=== PATIENT | male | born 1955 | race Two or more races ===

== ENCOUNTER 2018-05-26 01:24 | Emergency (ER) | payer MEDICAID ==
[~2018-05-26] VITALS: Ht 177.8 cm; Wt 93.0 kg
[~2018-05-26 01:24] MED LIST: BUME2TAB3 PO; CARV12.544 PO; CLON0.2T PO; GABA300C10 PO; HYDR1TAB97 PO; HYDR50TA15 PO; OME20T PO; ONDA-133 PO; ONDA4TAB5; PRED-559 PO
[2018-05-26 01:38] VITALS: BP 124/88
== END 2018-05-26 04:18 | disposition home or self-care (01) ==
LOC: ER 01:28
DX: M25.552 Pain in left hip (principal); E11.9 Type 2 diabetes mellitus without complications; E78.5 Hyperlipidemia, unspecified; I10 Essential (primary) hypertension; F17.210 Nicotine dependence, cigarettes, uncomplicated
CPT/HCPCS: 73502

== ENCOUNTER 2018-05-30 11:55 | Inpatient (IN) | payer MEDICAID ==
[~2018-05-30] VITALS: Ht 177.8 cm; Wt 101.5 kg
[2018-05-30 12:46] LABS: Basophils # (auto) 0 uL; Basophils % (auto) 0.3 % (0.0-2.0); Eosinophils # (auto) 0 uL; Eosinophils % (auto) 0.4 % (0.0-7.0); Hematocrit 41.7 % (41.0-53.0); Hemoglobin 13.8 g/dL (13.5-17.5); Lymphocytes # (auto) 0.8 uL; Lymphocytes % (auto) 8.3 % (10.0-50.0); Mean Corpuscular Hemoglobin 30.1 pg (28.0-32.0); Mean Corpuscular Hgb Conc. 33.2 g/dL (32.0-36.0); Mean Corpuscular Volume 90.7 fL (80.0-100.0); Monocytes # (auto) 0.2 uL; Monocytes % (auto) 2.2 % (0.0-12.0); Neutrophils # (auto) 8.2 uL; Neutrophils % (auto) 88.8 % (37.0-80.0); Platelet Count (auto) 183 10^3/uL (140-450); Red Blood Cells 4.59 10^6/uL (4.5-5.90); Red Cell Distribution Width 14.4 % (11.8-14.3); White Blood Cell 9.3 10^3/uL (4.4-10.8)
[2018-05-30 13:05] LABS: Alanine Aminotransferase 41 U/L (16-61); Albumin 2.7 g/dL (3.4-5.0); Anion Gap 8 (5-15); Aspartate Aminotransferase 32 U/L (15-37); BUN/Creatinine Ratio 18.8; Blood Alcohol < 3.0 mg/dL (0-5); Blood Urea Nitrogen 43 mg/dL (7-18); Calcium 7.2 mg/dL (8.5-10.1); Carbon Dioxide 27 mmol/L (21-32); Chloride 98 mmol/L (98-107); GFR African American 38 mL/min; GFR Non-African American 31 mL/min; Magnesium 2.1 mg/dL (1.6-2.6); Potassium 4.5 mmol/L (3.5-5.1); Sodium 133 mmol/L (136-145); Total Protein 6.6 g/dL (6.4-8.2)
[2018-05-30 13:10] LABS: Glucose 528 mg/dL (74-106)
[2018-05-30 13:13] LABS: Alkaline Phosphatase 139 U/L (45-117); Bilirubin, Total 0.8 mg/dL (0.2-1.0)
[2018-05-30] MEDS ORDERED: InsuLIN REG 1unit/0.01ml Soln (100units/ml) IV ONE (13:15)
[2018-05-30] MEDS ORDERED: SODIUM CHLORIDE 0.9% 1,000 ML IV ONE (13:15)
[2018-05-30] MEDS ORDERED: DEXTROSE (50%) 50ML SYRG IV PRN (15:45)
[2018-05-30] MEDS ORDERED: ACETAMINOPHEN 325 MG TAB PO PRN (16:00)
[2018-05-30] MEDS ORDERED: cloNIDine HCL 0.1 MG TAB PO PRN (16:00)
[2018-05-30] MEDS ORDERED: PANTOPRAZOLE 40 MG TAB PO ONE (16:00)
[2018-05-30] MEDS ORDERED: glipiZIDE 5 MG TAB PO ONE (16:00)
[2018-05-30] MEDS ORDERED: TEMAZEPAM 15 MG CAP PO PRN (16:00)
[2018-05-30] MEDS ORDERED: MORPHINE SULFATE 4 MG/ML SYR/VIAL IV PRN (16:00)
[2018-05-30] MEDS ORDERED: DOCUSATE SOD 100 MG CAP PO PRN (16:00)
[2018-05-30] MEDS ORDERED: ONDANSETRON HCL 4 MG/2 ML VIAL IV PRN (16:00)
[2018-05-30] MEDS: FAMOTIDINE 20 MG TAB PO SCH (16:12)
[2018-05-30] MEDS: ACCU-CHEK COMFORT CURVE STRIP VI SCH ×2 (16:24→21:44)
[2018-05-30] MEDS: InsuLIN REG 1unit/0.01ml Soln (100units/ml) SC SCH ×2 (16:30→21:44)
[2018-05-30] MEDS: Glucerna Carbsteady SHAKE Vanilla 8oz PO SCH (18:23)
[2018-05-30 20:00] VITALS: BP 109/77
[2018-05-30 20:15] VITALS: BP 109/77
[2018-05-30] MEDS: hydrALAZINE HCL 25 MG TAB PO SCH (21:42)
[2018-05-30] MEDS: GABAPENTIN 300 MG CAP PO SCH (21:42)
[2018-05-30] MEDS: SODIUM CHLOR 0.9% PF (SALINE LOCK) 10ML VIAL/SYR IV SCH (21:42)
[2018-05-30] MEDS: CARVEDILOL 12.5 MG TAB PO SCH (21:43)
[2018-05-30] MEDS: HYDROcodone-ACET 5/325MG TAB PO PRN (21:43)
[2018-05-30] MEDS: cloNIDine HCL 0.1 MG TAB PO SCH (21:47)
[2018-05-31] VITALS (9 sets, daily range): BP systolic 94–136; BP diastolic 58–89
[2018-05-31] MEDS: HYDROcodone-ACET 5/325MG TAB PO PRN ×5 (01:55→22:46)
[2018-05-31] MEDS: hydrALAZINE HCL 25 MG TAB PO SCH ×3 (06:18→21:44)
[2018-05-31] MEDS: SODIUM CHLOR 0.9% PF (SALINE LOCK) 10ML VIAL/SYR IV SCH ×3 (06:19→21:50)
[2018-05-31] MEDS: cloNIDine HCL 0.1 MG TAB PO SCH ×3 (06:19→21:45)
[2018-05-31] MEDS: glipiZIDE 5 MG TAB PO SCH (06:20)
[2018-05-31] MEDS: ACCU-CHEK COMFORT CURVE STRIP VI SCH ×4 (06:21→21:51)
[2018-05-31 06:27] LABS: Basophils # (auto) 0.1 uL; Basophils % (auto) 0.9 % (0.0-2.0); Eosinophils # (auto) 0.2 uL; Eosinophils % (auto) 1.8 % (0.0-7.0); Hemoglobin 13.4 g/dL (13.5-17.5); Lymphocytes # (auto) 2.6 uL; Lymphocytes % (auto) 26.1 % (10.0-50.0); Mean Corpuscular Hgb Conc. 33.5 g/dL (32.0-36.0); Mean Corpuscular Volume 89.6 fL (80.0-100.0); Monocytes # (auto) 0.7 uL; Monocytes % (auto) 6.6 % (0.0-12.0); Neutrophils # (auto) 6.5 uL; Neutrophils % (auto) 64.6 % (37.0-80.0); Nucleated Red Blood Cells % 0.1 %; Platelet Count (auto) 179 10^3/uL (140-450); Red Blood Cells 4.46 10^6/uL (4.5-5.90); Red Cell Distribution Width 14.2 % (11.8-14.3); White Blood Cell 10.1 10^3/uL (4.4-10.8)
[2018-05-31] MEDS: InsuLIN REG 1unit/0.01ml Soln (100units/ml) SC SCH ×4 (06:28→21:47)
[2018-05-31 06:51] LABS: Potassium 3.8 mmol/L (3.5-5.1)
[2018-05-31 06:58] LABS: Albumin 2.5 g/dL (3.4-5.0); BUN/Creatinine Ratio 22.7; Bilirubin, Total 0.6 mg/dL (0.2-1.0); Calcium 7.7 mg/dL (8.5-10.1); Total Protein 6.2 g/dL (6.4-8.2)
[2018-05-31] MEDS: Glucerna Carbsteady SHAKE Vanilla 8oz PO SCH ×3 (08:52→18:09)
[2018-05-31] MEDS: BUMETANIDE 1 MG TAB PO SCH (10:00)
[2018-05-31] MEDS: CARVEDILOL 12.5 MG TAB PO SCH ×2 (10:00→21:45)
[2018-05-31] MEDS: GABAPENTIN 300 MG CAP PO SCH ×2 (10:16→21:44)
[2018-05-31] MEDS: FAMOTIDINE 20 MG TAB PO SCH (10:16)
[2018-05-31] MEDS: ASPirin-EC 81 mg tab PO SCH (10:16)
[2018-05-31] MEDS: MULTIPLE VITAMIN TAB PO SCH (10:16)
[2018-05-31] MEDS: predniSONE 20 MG TAB PO SCH (10:19)
[2018-05-31] MEDS: PANTOPRAZOLE 40 MG TAB PO SCH (10:19)
[2018-05-31] MEDS: SODIUM CHLORIDE 0.9% 1,000 ML IV SCH (17:34)
[2018-06-01] VITALS (8 sets, daily range): BP systolic 114–143; BP diastolic 66–98
[2018-06-01] MEDS: cloNIDine HCL 0.1 MG TAB PO SCH ×3 (05:03→22:00)
[2018-06-01] MEDS: hydrALAZINE HCL 25 MG TAB PO SCH ×3 (05:03→22:18)
[2018-06-01] MEDS: SODIUM CHLOR 0.9% PF (SALINE LOCK) 10ML VIAL/SYR IV SCH ×3 (05:04→22:17)
[2018-06-01] MEDS: HYDROcodone-ACET 5/325MG TAB PO PRN ×5 (05:04→22:18)
[2018-06-01] MEDS: InsuLIN REG 1unit/0.01ml Soln (100units/ml) SC SCH ×3 (06:14→17:00)
[2018-06-01] MEDS: glipiZIDE 5 MG TAB PO SCH (06:14)
[2018-06-01] MEDS: ACCU-CHEK COMFORT CURVE STRIP VI SCH ×4 (06:15→22:19)
[2018-06-01 06:43] LABS: Potassium 4.1 mmol/L (3.5-5.1)
[2018-06-01 07:03] LABS: BUN/Creatinine Ratio 23.3; Calcium 7.6 mg/dL (8.5-10.1)
[2018-06-01] MEDS: Glucerna Carbsteady SHAKE Vanilla 8oz PO SCH ×3 (08:14→17:12)
[2018-06-01] MEDS: SODIUM CHLORIDE 0.9% 1,000 ML IV SCH (08:14)
[2018-06-01] MEDS: predniSONE 20 MG TAB PO SCH (09:18)
[2018-06-01] MEDS: ASPirin-EC 81 mg tab PO SCH (09:19)
[2018-06-01] MEDS: FAMOTIDINE 20 MG TAB PO SCH (09:19)
[2018-06-01] MEDS: MULTIPLE VITAMIN TAB PO SCH (09:19)
[2018-06-01] MEDS: PANTOPRAZOLE 40 MG TAB PO SCH (09:20)
[2018-06-01] MEDS: CARVEDILOL 12.5 MG TAB PO SCH ×2 (09:21→22:18)
[2018-06-01] MEDS: BUMETANIDE 1 MG TAB PO SCH (09:21)
[2018-06-01] MEDS ORDERED: INSULIN LANTUS (GLARGINE) 1 /0.01ml (100units/ml) SC ONE (13:00)
[2018-06-01] MEDS ORDERED: DEXTROSE (50%) 50ML SYRG IV PRN (13:00)
[2018-06-01] MEDS: GABAPENTIN 300 MG CAP PO SCH ×2 (13:29→22:17)
[2018-06-01] MEDS ORDERED: InsuLIN REG 1unit/0.01ml Soln (100units/ml) SC ONE (18:15)
[2018-06-01] MEDS ORDERED: InsuLIN REG 1unit/0.01ml Soln (100units/ml) IV ONE (20:00)
[2018-06-01] MEDS ORDERED: InsuLIN REG 1unit/0.01ml Soln (100units/ml) SC SCH (22:00)
[2018-06-02] MEDS: HYDROcodone-ACET 5/325MG TAB PO PRN ×3 (02:45→11:34)
[2018-06-02 05:13] VITALS: BP 118/64
[2018-06-02] MEDS: cloNIDine HCL 0.1 MG TAB PO SCH (06:00)
[2018-06-02] MEDS: GABAPENTIN 300 MG CAP PO SCH (06:18)
[2018-06-02] MEDS: hydrALAZINE HCL 25 MG TAB PO SCH (06:18)
[2018-06-02] MEDS: SODIUM CHLOR 0.9% PF (SALINE LOCK) 10ML VIAL/SYR IV SCH (06:18)
[2018-06-02] MEDS ORDERED: INSULIN LANTUS (GLARGINE) 1 /0.01ml (100units/ml) SC SCH (07:00)
[2018-06-02] MEDS: ACCU-CHEK COMFORT CURVE STRIP VI SCH ×2 (07:02→11:27)
[2018-06-02] MEDS: InsuLIN REG 1unit/0.01ml Soln (100units/ml) SC SCH ×2 (07:03→11:27)
[2018-06-02] MEDS: Glucerna Carbsteady SHAKE Vanilla 8oz PO SCH ×2 (07:48→12:35)
[2018-06-02 09:00] VITALS: BP 138/85
[2018-06-02] MEDS: MULTIPLE VITAMIN TAB PO SCH (10:35)
[2018-06-02] MEDS: CARVEDILOL 12.5 MG TAB PO SCH (10:35)
[2018-06-02] MEDS: PANTOPRAZOLE 40 MG TAB PO SCH (10:36)
[2018-06-02] MEDS: predniSONE 20 MG TAB PO SCH (10:36)
[2018-06-02] MEDS: ASPirin-EC 81 mg tab PO SCH (10:36)
[2018-06-02] MEDS: FAMOTIDINE 20 MG TAB PO SCH (10:36)
[2018-06-02] MEDS: BUMETANIDE 1 MG TAB PO SCH (10:37)
[2018-06-02 12:37] LABS: Anion Gap 9 (5-15); BUN/Creatinine Ratio 24.6; Blood Urea Nitrogen 32 mg/dL (7-18); Calcium 7.8 mg/dL (8.5-10.1); Carbon Dioxide 25 mmol/L (21-32); Chloride 101 mmol/L (98-107); GFR African American 72 mL/min; GFR Non-African American 60 mL/min; Glucose 220 mg/dL (74-106); Potassium 4.1 mmol/L (3.5-5.1); Sodium 135 mmol/L (136-145)
== END 2018-06-02 13:08 | disposition home or self-care (01) | DRG 384 ==
LOC: ER 11:55 → EDBD 11:55 → OVERFLOW 11:56 → WEST WING 19:40
PROVIDERS: ADMIT Internal Medicine; ATTEND Internal Medicine
DX: S70.02XA Contusion of left hip, initial encounter (principal); N17.0 Acute kidney failure with tubular necrosis; E43 Unspecified severe protein-calorie malnutrition; I13.0 Hypertensive heart and chronic kidney disease with heart failure and stage 1 through stage 4 chronic kidney disease, or unspecified chronic kidney disease; I50.32 Chronic diastolic (congestive) heart failure; E11.21 Type 2 diabetes mellitus with diabetic nephropathy; E44.0 Moderate protein-calorie malnutrition; E11.65 Type 2 diabetes mellitus with hyperglycemia; E83.51 Hypocalcemia; J44.9 Chronic obstructive pulmonary disease, unspecified; E11.22 Type 2 diabetes mellitus with diabetic chronic kidney disease; E78.5 Hyperlipidemia, unspecified; N18.3 Chronic kidney disease, stage 3 (moderate); Z82.49 Family history of ischemic heart disease and other diseases of the circulatory system; Z87.891 Personal history of nicotine dependence; Z86.73 Personal history of transient ischemic attack (TIA), and cerebral infarction without residual deficits; Z90.89 Acquired absence of other organs; Z68.32 Body mass index [BMI] 32.0-32.9, adult; V89.2XXA Person injured in unspecified motor-vehicle accident, traffic, initial encounter; Y92.410 Unspecified street and highway as the place of occurrence of the external cause; Y93.89 Activity, other specified; Y99.8 Other external cause status
CPT/HCPCS: 36415; 72192; 80048; 80053; 80061; 80320; 82962; 83036; 83735; 85025; 93306; 96361; 96372; 96374; 96375; J1815; J2405

== ENCOUNTER 2018-06-20 16:03 | Emergency (ER) | payer MEDICAID ==
[~2018-06-20] VITALS: Ht 177.8 cm; Wt 95.3 kg
[2018-06-20 17:03] LABS: Basophils # (auto) 0 uL; Basophils % (auto) 0.2 % (0.0-2.0); Eosinophils # (auto) 0 uL; Eosinophils % (auto) 0.1 % (0.0-7.0); Hematocrit 42.1 % (41.0-53.0); Hemoglobin 13.9 g/dL (13.5-17.5); Lymphocytes # (auto) 0.9 uL; Lymphocytes % (auto) 9.7 % (10.0-50.0); Mean Corpuscular Hemoglobin 29.7 pg (28.0-32.0); Mean Corpuscular Volume 89.9 fL (80.0-100.0); Monocytes # (auto) 0.3 uL; Monocytes % (auto) 3.6 % (0.0-12.0); Neutrophils # (auto) 8.1 uL; Neutrophils % (auto) 86.4 % (37.0-80.0); Platelet Count (auto) 213 10^3/uL (140-450); Red Blood Cells 4.68 10^6/uL (4.5-5.90); Red Cell Distribution Width 14.7 % (11.8-14.3); White Blood Cell 9.3 10^3/uL (4.4-10.8)
[2018-06-20 17:26] LABS: Alanine Aminotransferase 41 U/L (16-61); Albumin 3.1 g/dL (3.4-5.0); Anion Gap 10 (5-15); Aspartate Aminotransferase 32 U/L (15-37); BUN/Creatinine Ratio 14.3; Blood Urea Nitrogen 22 mg/dL (7-18); Calcium 8.2 mg/dL (8.5-10.1); Carbon Dioxide 22 mmol/L (21-32); Chloride 107 mmol/L (98-107); GFR African American 59 mL/min; GFR Non-African American 49 mL/min; Glucose 85 mg/dL (74-106); Potassium 3.7 mmol/L (3.5-5.1); Sodium 139 mmol/L (136-145)
[2018-06-20 17:29] LABS: Alkaline Phosphatase 104 U/L (45-117); Total Protein 7.1 g/dL (6.4-8.2)
[2018-06-20 17:47] VITALS: BP 130/82
== END 2018-06-20 18:50 | disposition home or self-care (01) ==
LOC: EDBD 16:03 → ER 16:03
DX: E11.649 Type 2 diabetes mellitus with hypoglycemia without coma (principal); E46 Unspecified protein-calorie malnutrition; E11.22 Type 2 diabetes mellitus with diabetic chronic kidney disease; I13.0 Hypertensive heart and chronic kidney disease with heart failure and stage 1 through stage 4 chronic kidney disease, or unspecified chronic kidney disease; N18.9 Chronic kidney disease, unspecified; I50.9 Heart failure, unspecified; E78.5 Hyperlipidemia, unspecified; J44.9 Chronic obstructive pulmonary disease, unspecified; Z87.891 Personal history of nicotine dependence; Z86.73 Personal history of transient ischemic attack (TIA), and cerebral infarction without residual deficits; Z79.899 Other long term (current) drug therapy; Z68.30 Body mass index [BMI] 30.0-30.9, adult
CPT/HCPCS: 36415; 80053; 82962; 85025; 93005; 94761

== ENCOUNTER 2018-07-09 11:45 | Emergency (ER) | payer MEDICAID ==
[~2018-07-09] VITALS: Ht 170.2 cm; Wt 77.1 kg
[2018-07-09] MEDS ORDERED: KETOROLAC TROMETH 60MG/2ML VIAL IM ONE (12:00)
[2018-07-09 12:37] VITALS: BP 176/92
== END 2018-07-09 15:42 | disposition home or self-care (01) ==
LOC: ER 11:45 → EDBD 11:45 → ER 15:42
DX: M25.552 Pain in left hip (principal); J44.9 Chronic obstructive pulmonary disease, unspecified; E78.5 Hyperlipidemia, unspecified; E11.9 Type 2 diabetes mellitus without complications; I11.0 Hypertensive heart disease with heart failure; I50.9 Heart failure, unspecified; Z59.0 Homelessness; Z79.899 Other long term (current) drug therapy; Z86.73 Personal history of transient ischemic attack (TIA), and cerebral infarction without residual deficits; Z87.891 Personal history of nicotine dependence
CPT/HCPCS: 73502; 96372; 99284; J1885

== ENCOUNTER 2021-02-08 23:19 | Inpatient (IN) | payer MEDICAID ==
[~2021-02-08] VITALS: Ht 177.8 cm; Wt 88.5 kg
[~2021-02-08 23:19] MED LIST changes: -BUME2TAB3 PO; +BUME2TAB5 PO; +ONDA-144; -ONDA4TAB5
[2021-02-08] MEDS ORDERED: SODIUM CHLORIDE 0.9% 1,000 ML IV ONE (23:30)
[2021-02-09 00:14] LABS: Basophils # (auto) 0.1 10 ^3/uL (0-0.2); Basophils % (auto) 0.7 % (0.0-2.0); Eosinophils # (auto) 0.3 10 ^3/uL (0-0.8); Eosinophils % (auto) 3.2 % (0.0-7.0); Hematocrit 40.7 % (41.0-53.0); Hemoglobin 13.7 g/dL (13.5-17.5); Lymphocytes # (auto) 2.3 10 ^3/uL (0.4-5.4); Lymphocytes % (auto) 23.2 % (10.0-50.0); Mean Corpuscular Hemoglobin 30.1 pg (28.0-32.0); Mean Corpuscular Hgb Conc. 33.7 g/dL (32.0-36.0); Mean Corpuscular Volume 89.2 fL (80.0-100.0); Monocytes # (auto) 0.7 10 ^3/uL (0-1.3); Neutrophils # (auto) 6.4 10 ^3/uL (1.6-8.6); Neutrophils % (auto) 65.9 % (37.0-80.0); Nucleated Red Blood Cells % 0.2 %; Platelet Count (auto) 192 10^3/uL (140-450); Red Blood Cells 4.57 10^6/uL (4.5-5.90); Red Cell Distribution Width 13.8 % (11.8-14.3); White Blood Cell 9.7 10^3/uL (4.4-10.8)
[2021-02-09 00:32] LABS: Albumin 3.2 g/dL (3.4-5.0); Calcium 8.3 mg/dL (8.5-10.1); Potassium 4.3 mmol/L (3.5-5.1)
[2021-02-09 00:34] LABS: Bilirubin, Total 0.8 mg/dL (0.2-1.0); Total Protein 7.1 g/dL (6.4-8.2)
[2021-02-09 03:01] LABS: Urine Bacteria NONE SEEN /hpf (None Seen); Urine Blood Negative /uL (Negative); Urine Budding Yeast FEW /hpf (None Seen); Urine Specific Gravity 1.023 (1.001-1.035); Urine WBC 19 /hpf (0 - 3)
[2021-02-09] MEDS ORDERED: SODIUM CHLORIDE 0.9% 1,000 ML IV ONE (04:30)
[2021-02-09] MEDS ORDERED: cefTRIAXone 1GM/50ML D5W 50 ML IV ONE (04:30)
[2021-02-09] MEDS ORDERED: ONDANSETRON HCL 4 MG/2 ML VIAL IV PRN (05:00)
[2021-02-09] MEDS ORDERED: DEXTROSE (50%) 50ML SYRG IV PRN (05:00)
[2021-02-09] MEDS ORDERED: MORPHINE SULFATE 4 MG/ML SYR/VIAL IV PRN (05:00)
[2021-02-09] MEDS ORDERED: NITROGLYCERIN 0.4 MG SL TAB SL PRN (05:00)
[2021-02-09] MEDS ORDERED: HYDROcodone-ACET 5/325MG TAB PO PRN (05:00)
[2021-02-09] MEDS ORDERED: MORPHINE SULF INJ 2 MG/ML SYRINGE 1ML IV PRN (05:00)
[2021-02-09] MEDS ORDERED: ACETAMINOPHEN 325 MG TAB PO PRN (05:00)
[2021-02-09] MEDS ORDERED: DOCUSATE SOD 100 MG CAP PO PRN (05:00)
[2021-02-09] MEDS: SODIUM CHLOR 0.9% PF (SALINE LOCK) 10ML VIAL/SYR IV SCH ×3 (06:04→22:48)
[2021-02-09] MEDS: INSULIN LANTUS (GLARGINE) 1 /0.01ml (100units/ml) SC SCH ×2 (07:17→21:53)
[2021-02-09 08:00] VITALS: BP 136/76
[2021-02-09 08:00] LABS: Basophils # (auto) 0.2 10 ^3/uL (0-0.2); Basophils % (auto) 1.9 % (0.0-2.0); Eosinophils # (auto) 0.3 10 ^3/uL (0-0.8); Eosinophils % (auto) 3.4 % (0.0-7.0); Hematocrit 40.5 % (41.0-53.0); Hemoglobin 13.4 g/dL (13.5-17.5); Lymphocytes # (auto) 1.8 10 ^3/uL (0.4-5.4); Lymphocytes % (auto) 22.8 % (10.0-50.0); Mean Corpuscular Hemoglobin 29.5 pg (28.0-32.0); Mean Corpuscular Volume 89.4 fL (80.0-100.0); Monocytes # (auto) 0.5 10 ^3/uL (0-1.3); Neutrophils # (auto) 5.2 10 ^3/uL (1.6-8.6); Neutrophils % (auto) 65.9 % (37.0-80.0); Nucleated Red Blood Cells % 0.1 %; Platelet Count (auto) 171 10^3/uL (140-450); Red Blood Cells 4.53 10^6/uL (4.5-5.90); Red Cell Distribution Width 13.8 % (11.8-14.3); White Blood Cell 7.9 10^3/uL (4.4-10.8)
[2021-02-09 08:12] LABS: Albumin 2.8 g/dL (3.4-5.0); Calcium 8.1 mg/dL (8.5-10.1); Potassium 4.3 mmol/L (3.5-5.1)
[2021-02-09 08:20] LABS: BUN/Creatinine Ratio 17.5; Bilirubin, Total 0.5 mg/dL (0.2-1.0); Total Protein 6.2 g/dL (6.4-8.2)
[2021-02-09] MEDS: ACCU-CHEK COMFORT CURVE STRIP VI SCH ×5 (08:35→23:53)
[2021-02-09] MEDS: InsuLIN REG 1unit/0.01ml Soln (100units/ml) SC SCH ×5 (08:35→23:54)
[2021-02-09] MEDS: cefTRIAXone 1GM/50ML D5W 50 ML IV SCH (09:00)
[2021-02-09] MEDS: FUROSEMIDE 40 MG/4 ML VIAL IV SCH (09:25)
[2021-02-09] MEDS: CARVEDILOL 12.5 MG TAB PO SCH ×2 (09:26→22:48)
[2021-02-09] MEDS: MULTIPLE VITAMIN TAB PO SCH (09:26)
[2021-02-09] MEDS: FAMOTIDINE 20 MG TAB PO SCH ×2 (09:27→22:49)
[2021-02-09] MEDS: ASCORBIC ACID 500 MG TAB PO SCH ×2 (09:27→22:49)
[2021-02-09 09:45] VITALS: BP 136/76
[2021-02-09] MEDS: HEPARIN SODIUM (PORCINE) 5000 UNITS/ML 1ML VIAL SC SCH ×2 (10:00→22:50)
[2021-02-09] MEDS ORDERED: ZINC SULFATE 220mg CAP or TAB PO SCH (10:00)
[2021-02-09 13:00] VITALS: BP 110/76
[2021-02-09] MEDS ORDERED: CALCIUM CARB 500 MG CHEW TAB PO ONE (14:00)
[2021-02-09] MEDS ORDERED: ZINC SULFATE 220mg CAP or TAB PO ONE (14:00)
[2021-02-09] MEDS ORDERED: BACLOFEN 10 MG TAB PO ONE (14:15)
[2021-02-09 16:51] VITALS: BP 120/69
[2021-02-09] MEDS: Glucerna Carbsteady SHAKE Vanilla 8oz PO SCH (18:00)
[2021-02-09] MEDS: CALCIUM CARB 500 MG CHEW TAB PO SCH (18:00)
[2021-02-09 22:00] VITALS: BP 127/79
[2021-02-09] MEDS: BACLOFEN 10 MG TAB PO SCH (22:49)
[2021-02-10] MEDS: ACCU-CHEK COMFORT CURVE STRIP VI SCH ×6 (04:32→23:41)
[2021-02-10] MEDS: InsuLIN REG 1unit/0.01ml Soln (100units/ml) SC SCH ×5 (04:38→20:22)
[2021-02-10 05:00] VITALS: BP 113/60
[2021-02-10] MEDS: BACLOFEN 10 MG TAB PO SCH ×3 (06:44→22:29)
[2021-02-10] MEDS: SODIUM CHLOR 0.9% PF (SALINE LOCK) 10ML VIAL/SYR IV SCH ×3 (06:44→22:28)
[2021-02-10] MEDS: INSULIN LANTUS (GLARGINE) 1 /0.01ml (100units/ml) SC SCH ×2 (06:46→22:00)
[2021-02-10 07:00] LABS: Basophils # (auto) 0 10 ^3/uL (0-0.2); Basophils % (auto) 0.5 % (0.0-2.0); Eosinophils # (auto) 0.4 10 ^3/uL (0-0.8); Eosinophils % (auto) 5.1 % (0.0-7.0); Hemoglobin 13.8 g/dL (13.5-17.5); Lymphocytes # (auto) 0.5 10 ^3/uL (0.4-5.4); Lymphocytes % (auto) 5.6 % (10.0-50.0); Mean Corpuscular Hemoglobin 30.3 pg (28.0-32.0); Mean Corpuscular Hgb Conc. 34.5 g/dL (32.0-36.0); Mean Corpuscular Volume 87.9 fL (80.0-100.0); Monocytes # (auto) 0.3 10 ^3/uL (0-1.3); Monocytes % (auto) 3.4 % (0.0-12.0); Neutrophils % (auto) 85.4 % (37.0-80.0); Nucleated Red Blood Cells % 0.1 %; Platelet Count (auto) 169 10^3/uL (140-450); Red Blood Cells 4.55 10^6/uL (4.5-5.90); Red Cell Distribution Width 13.9 % (11.8-14.3); White Blood Cell 8.2 10^3/uL (4.4-10.8)
[2021-02-10 07:14] LABS: Potassium 3.7 mmol/L (3.5-5.1)
[2021-02-10 07:22] LABS: Albumin 2.6 g/dL (3.4-5.0); BUN/Creatinine Ratio 22.1; Bilirubin, Total 0.5 mg/dL (0.2-1.0); Calcium 8.1 mg/dL (8.5-10.1); Total Protein 6.2 g/dL (6.4-8.2)
[2021-02-10] MEDS: CALCIUM CARB 500 MG CHEW TAB PO SCH ×3 (08:45→18:24)
[2021-02-10] MEDS: Glucerna Carbsteady SHAKE Vanilla 8oz PO SCH ×3 (08:45→18:24)
[2021-02-10] MEDS: cefTRIAXone 1GM/50ML D5W 50 ML IV SCH (08:54)
[2021-02-10] MEDS: MULTIPLE VITAMIN TAB PO SCH (08:55)
[2021-02-10] MEDS: ZINC SULFATE 220mg CAP or TAB PO SCH (08:55)
[2021-02-10] MEDS: CARVEDILOL 12.5 MG TAB PO SCH ×2 (08:56→22:28)
[2021-02-10] MEDS: FUROSEMIDE 40 MG/4 ML VIAL IV SCH (08:56)
[2021-02-10] MEDS: HEPARIN SODIUM (PORCINE) 5000 UNITS/ML 1ML VIAL SC SCH ×2 (08:57→22:31)
[2021-02-10] MEDS: ASCORBIC ACID 500 MG TAB PO SCH ×2 (08:57→22:29)
[2021-02-10] MEDS: FAMOTIDINE 20 MG TAB PO SCH ×2 (08:57→22:29)
[2021-02-10 09:00] VITALS: BP 102/59
[2021-02-10] MEDS ORDERED: TEMAZEPAM 15 MG CAP PO ONE (22:00)
[2021-02-11] MEDS: InsuLIN REG 1unit/0.01ml Soln (100units/ml) SC SCH ×4 (00:09→12:08)
[2021-02-11] MEDS: ACCU-CHEK COMFORT CURVE STRIP VI SCH ×3 (04:00→12:07)
[2021-02-11] MEDS: SODIUM CHLOR 0.9% PF (SALINE LOCK) 10ML VIAL/SYR IV SCH (06:00)
[2021-02-11] MEDS: BACLOFEN 10 MG TAB PO SCH (06:39)
[2021-02-11] MEDS: INSULIN LANTUS (GLARGINE) 1 /0.01ml (100units/ml) SC SCH (06:50)
[2021-02-11 06:55] LABS: Basophils # (auto) 0 10 ^3/uL (0-0.2); Basophils % (auto) 0.5 % (0.0-2.0); Eosinophils # (auto) 0.5 10 ^3/uL (0-0.8); Eosinophils % (auto) 5.1 % (0.0-7.0); Hematocrit 43.1 % (41.0-53.0); Hemoglobin 14.7 g/dL (13.5-17.5); Lymphocytes # (auto) 1.3 10 ^3/uL (0.4-5.4); Lymphocytes % (auto) 13.5 % (10.0-50.0); Mean Corpuscular Hemoglobin 29.9 pg (28.0-32.0); Mean Corpuscular Hgb Conc. 34.1 g/dL (32.0-36.0); Mean Corpuscular Volume 87.6 fL (80.0-100.0); Monocytes # (auto) 0.6 10 ^3/uL (0-1.3); Monocytes % (auto) 5.9 % (0.0-12.0); Neutrophils # (auto) 7.1 10 ^3/uL (1.6-8.6); Platelet Count (auto) 171 10^3/uL (140-450); Red Blood Cells 4.92 10^6/uL (4.5-5.90); Red Cell Distribution Width 14.2 % (11.8-14.3); White Blood Cell 9.5 10^3/uL (4.4-10.8)
[2021-02-11 07:23] LABS: Calcium 8.6 mg/dL (8.5-10.1); Potassium 3.9 mmol/L (3.5-5.1)
[2021-02-11] MEDS: CALCIUM CARB 500 MG CHEW TAB PO SCH ×2 (08:52→12:07)
[2021-02-11] MEDS: Glucerna Carbsteady SHAKE Vanilla 8oz PO SCH ×2 (08:52→12:07)
[2021-02-11 09:00] VITALS: BP 114/64
[2021-02-11] MEDS: HEPARIN SODIUM (PORCINE) 5000 UNITS/ML 1ML VIAL SC SCH (09:55)
[2021-02-11] MEDS: cefTRIAXone 1GM/50ML D5W 50 ML IV SCH (09:55)
[2021-02-11] MEDS: ZINC SULFATE 220mg CAP or TAB PO SCH (09:56)
[2021-02-11] MEDS: ASCORBIC ACID 500 MG TAB PO SCH (09:56)
[2021-02-11] MEDS: FUROSEMIDE 40 MG/4 ML VIAL IV SCH (09:56)
[2021-02-11] MEDS: CARVEDILOL 12.5 MG TAB PO SCH (09:56)
[2021-02-11] MEDS: MULTIPLE VITAMIN TAB PO SCH (09:56)
[2021-02-11] MEDS: FAMOTIDINE 20 MG TAB PO SCH (09:56)
[2021-02-11 13:00] VITALS: BP 124/80
== END 2021-02-11 13:50 | disposition left against medical advice (07) | DRG 420 ==
LOC: ER 23:19 → EDBD 23:19 → TELE 02-09 05:00 → TELE-WESTW 02-09 08:32
PROVIDERS: ADMIT Nurse Practitioner Family; ATTEND Internal Medicine
DX: E11.65 Type 2 diabetes mellitus with hyperglycemia (principal); N17.0 Acute kidney failure with tubular necrosis; E11.22 Type 2 diabetes mellitus with diabetic chronic kidney disease; E11.40 Type 2 diabetes mellitus with diabetic neuropathy, unspecified; I13.0 Hypertensive heart and chronic kidney disease with heart failure and stage 1 through stage 4 chronic kidney disease, or unspecified chronic kidney disease; E87.1 Hypo-osmolality and hyponatremia; N39.0 Urinary tract infection, site not specified; E66.9 Obesity, unspecified; I50.9 Heart failure, unspecified; Z53.29 Procedure and treatment not carried out because of patient's decision for other reasons; Z20.822 Contact with and (suspected) exposure to COVID-19; E78.00 Pure hypercholesterolemia, unspecified; E78.5 Hyperlipidemia, unspecified; J44.9 Chronic obstructive pulmonary disease, unspecified; N18.9 Chronic kidney disease, unspecified; Z59.0 Homelessness; Z82.3 Family history of stroke; Z86.73 Personal history of transient ischemic attack (TIA), and cerebral infarction without residual deficits; Z87.891 Personal history of nicotine dependence; Z91.14 Patient's other noncompliance with medication regimen; Z91.19 Patient's noncompliance with other medical treatment and regimen; Z68.33 Body mass index [BMI] 33.0-33.9, adult
CPT/HCPCS: 36415; 36600; 71045; 80048; 80053; 81001; 82805; 82962; 83036; 83880; 84443; 85025; 87081; 87086; 87426; 96361; 96365; G0378; J0696; J1815

== ENCOUNTER 2021-04-24 20:10 | Emergency (ER) | payer MEDICAID, OTHER ==
[~2021-04-24] VITALS: Ht 172.7 cm; Wt 93.0 kg
[2021-04-25 00:23] VITALS: BP 164/109
== END 2021-04-25 02:05 | disposition home or self-care (01) ==
LOC: EDBD 20:10 → ER 20:10
DX: S42.032A Displaced fracture of lateral end of left clavicle, initial encounter for closed fracture (principal); R51.9 Headache, unspecified; I13.0 Hypertensive heart and chronic kidney disease with heart failure and stage 1 through stage 4 chronic kidney disease, or unspecified chronic kidney disease; E11.22 Type 2 diabetes mellitus with diabetic chronic kidney disease; N18.9 Chronic kidney disease, unspecified; I50.9 Heart failure, unspecified; J44.9 Chronic obstructive pulmonary disease, unspecified; Z90.89 Acquired absence of other organs; Z87.891 Personal history of nicotine dependence; Z59.0 Homelessness; Z79.899 Other long term (current) drug therapy; V43.62XA Car passenger injured in collision with other type car in traffic accident, initial encounter; Y93.89 Activity, other specified; Y92.410 Unspecified street and highway as the place of occurrence of the external cause; Y99.8 Other external cause status
CPT/HCPCS: 70450; 73030

== ENCOUNTER 2022-06-08 21:41 | Emergency (ER) | payer MEDICARE, MEDICAID ==
[~2022-06-08] VITALS: Ht 172.7 cm; Wt 77.1 kg
[2022-06-08] MEDS ORDERED: SODIUM CHLORIDE 0.9% 1,000 ML IV ONE (22:00)
[2022-06-08] MEDS ORDERED: InsuLIN REG 1unit/0.01ml Soln (100units/ml) IV ONE (22:00)
[2022-06-08 23:09] LABS: Basophils # (auto) 0.1 10 ^3/uL (0-0.2); Basophils % (auto) 0.3 % (0.0-2.0); Eosinophils # (auto) 0 10 ^3/uL (0-0.8); Eosinophils % (auto) 0.1 % (0.0-7.0); Hematocrit 45.9 % (41.0-53.0); Hemoglobin 15.1 g/dL (13.5-17.5); Lymphocytes # (auto) 0.8 10 ^3/uL (0.4-5.4); Mean Corpuscular Hemoglobin 28.8 pg (28.0-32.0); Mean Corpuscular Hgb Conc. 32.9 g/dL (32.0-36.0); Mean Corpuscular Volume 87.5 fL (80.0-100.0); Monocytes # (auto) 0.5 10 ^3/uL (0-1.3); Monocytes % (auto) 2.8 % (0.0-12.0); Neutrophils # (auto) 15.5 10 ^3/uL (1.6-8.6); Neutrophils % (auto) 91.8 % (37.0-80.0); Nucleated Red Blood Cells % 0.1 %; Red Blood Cells 5.24 10^6/uL (4.5-5.90); Red Cell Distribution Width 14.8 % (11.8-14.3); White Blood Cell 16.9 10^3/uL (4.4-10.8)
[2022-06-08 23:33] LABS: Albumin 2.9 g/dL (3.4-5.0); BUN/Creatinine Ratio 21.5; Calcium 8.2 mg/dL (8.5-10.1); Potassium 4.7 mmol/L (3.5-5.1)
[2022-06-08 23:36] LABS: Bilirubin, Total 0.9 mg/dL (0.2-1.0); Total Protein 6.8 g/dL (6.4-8.2)
[2022-06-08 23:48] LABS: Urine Bacteria NONE SEEN /hpf (None Seen); Urine Blood TRACE /uL (Negative); Urine Specific Gravity 1.022 (1.001-1.035); Urine WBC 1 /hpf (0 - 3)
[2022-06-09] MEDS ORDERED: GABAPENTIN 300 MG CAP PO ONE (02:15)
[2022-06-09] MEDS ORDERED: INSU32MI9 XX (02:39)
[2022-06-09 03:00] VITALS: BP 150/91
[2022-06-09] MEDS ORDERED: LANC-347 XX (03:17)
== END 2022-06-09 03:15 | disposition home or self-care (01) ==
LOC: EDBD 21:41 → ER 21:44
DX: E11.65 Type 2 diabetes mellitus with hyperglycemia (principal); E11.22 Type 2 diabetes mellitus with diabetic chronic kidney disease; I13.0 Hypertensive heart and chronic kidney disease with heart failure and stage 1 through stage 4 chronic kidney disease, or unspecified chronic kidney disease; N18.9 Chronic kidney disease, unspecified; I50.9 Heart failure, unspecified; E78.5 Hyperlipidemia, unspecified; Z87.891 Personal history of nicotine dependence
CPT/HCPCS: 36415; 80053; 81001; 82010; 82962; 85025; 96361; 96374; 99285; J1815; J7030

== ENCOUNTER 2023-04-11 23:41 | Inpatient (IN) | payer OTHER ==
[~2023-04-11] VITALS: Ht 165.1 cm; Wt 76.7 kg
[~2023-04-11 23:41] MED LIST changes: +GABA-1250 PO; -GABA300C10 PO; +HYDR-4297 PO; -HYDR50TA15 PO; +INSU32MI9 XX; +LANC-347 XX
[2023-04-12 00:40] VITALS: O2SAT 95
[2023-04-12 01:07] LABS: Basophils # (auto) 0.1 10 ^3/uL (0-0.2); Basophils % (auto) 0.9 % (0.0-2.0); Eosinophils # (auto) 0.8 10 ^3/uL (0-0.8); Eosinophils % (auto) 7.8 % (0.0-7.0); Hematocrit 35.5 % (41.0-53.0); Hemoglobin 11.5 g/dL (13.5-17.5); Lymphocytes # (auto) 2.8 10 ^3/uL (0.4-5.4); Lymphocytes % (auto) 26.4 % (10.0-50.0); Mean Corpuscular Hemoglobin 27.5 pg (28.0-32.0); Mean Corpuscular Hgb Conc. 32.2 g/dL (32.0-36.0); Mean Corpuscular Volume 85.5 fL (80.0-100.0); Monocytes # (auto) 0.6 10 ^3/uL (0-1.3); Monocytes % (auto) 5.2 % (0.0-12.0); Neutrophils # (auto) 6.4 10 ^3/uL (1.6-8.6); Neutrophils % (auto) 59.7 % (37.0-80.0); Nucleated Red Blood Cells % 0.2 %; Red Blood Cells 4.16 10^6/uL (4.5-5.90); Red Cell Distribution Width 17.1 % (11.8-14.3); White Blood Cell 10.7 10^3/uL (4.4-10.8)
[2023-04-12 01:16] LABS: BUN/Creatinine Ratio 26.9 (10.0-20.0); Calcium 8.8 mg/dL (8.5-10.1); Magnesium 2.1 mg/dL (1.6-2.6); Potassium 4.7 mmol/L (3.5-5.1)
[2023-04-12 01:18] LABS: Bilirubin, Total 0.4 mg/dL (0.2-1.0); Total Protein 7.5 g/dL (6.4-8.2)
[2023-04-12 01:21] LABS: INR 1.04 (0.9-1.15); Partial Thromboplastin Time 29.4 SEC (24.5-34.5); Prothrombin Time 10.9 sec (9.3-11.8)
[2023-04-12 06:30] LABS: Erythrocyte Sedimentation Rate 25 mm/hr (0-20)
[2023-04-12 09:47] VITALS: PULSE 86; RESP 15; O2SAT 96
[2023-04-12] MEDS ORDERED: DOCUSATE SOD 100 MG CAP PO PRN (12:15)
[2023-04-12] MEDS ORDERED: DEXTROSE (50%) 50ML SYRG IV PRN (12:15)
[2023-04-12] MEDS ORDERED: ONDANSETRON HCL 4 MG/2 ML VIAL IV PRN (12:15)
[2023-04-12] MEDS ORDERED: ACETAMINOPHEN 325 MG TAB PO PRN (12:15)
[2023-04-12] MEDS ORDERED: ATOR40TA52 PO (12:20)
[2023-04-12] MEDS: SODIUM CHLOR 0.9% PF (SALINE LOCK) 10ML VIAL/SYR IV SCH ×2 (14:00→22:01)
[2023-04-12] MEDS: PATIENTS OWN MEDICATION (Hydralazine Hcl 50 MG) PO SCH ×2 (14:31→22:00)
[2023-04-12] MEDS: CLONIDINE HYDROCHLORIDE 0.2 MG PO SCH ×2 (14:32→22:00)
[2023-04-12] MEDS: GABAPENTIN 300 MG CAP PO SCH ×2 (14:42→22:02)
[2023-04-12] MEDS: PIPERACILLIN-TAZOB 3.375GM 100 ML IV SCH ×2 (14:42→22:01)
[2023-04-12 14:52] LABS: Urine Bacteria FEW /hpf (None Seen); Urine Blood 2+ /uL (Negative); Urine Clarity CLOUDY (Clear); Urine Color Yellow (Yellow); Urine Protein, UAD 2+ (Negative); Urine Specific Gravity 1.015 (1.001-1.035); Urine Urobilinogen Normal (Negative); Urine WBC 2814 /hpf (0 - 3); Urine WBC Clumps PRESENT /hpf (None Seen)
[2023-04-12] MEDS: InsuLIN REG 1unit/0.01ml Soln (100units/ml) SC SCH ×2 (17:53→22:03)
[2023-04-12] MEDS: ACCU-CHEK COMFORT CURVE STRIP VI SCH ×2 (17:55→22:00)
[2023-04-12 19:15] VITALS: O2SAT 97
[2023-04-12 20:00] VITALS: O2SAT 96
[2023-04-12] MEDS: CARVEDILOL 12.5 MG TAB PO SCH (22:03)
[2023-04-13 05:00] VITALS: BP_SYST 116; BP_DIAS 52; BP_DIAS 72; PULSE 72; RESP 19; TEMP 98.3; O2SAT 98
[2023-04-13] MEDS: CLONIDINE HYDROCHLORIDE 0.2 MG PO SCH (05:17)
[2023-04-13] MEDS: PATIENTS OWN MEDICATION (Hydralazine Hcl 50 MG) PO SCH (05:17)
[2023-04-13] MEDS: GABAPENTIN 300 MG CAP PO SCH ×3 (05:30→22:15)
[2023-04-13] MEDS: PIPERACILLIN-TAZOB 3.375GM 100 ML IV SCH (05:30)
[2023-04-13] MEDS: SODIUM CHLOR 0.9% PF (SALINE LOCK) 10ML VIAL/SYR IV SCH ×3 (05:50→22:14)
[2023-04-13] MEDS: ACCU-CHEK COMFORT CURVE STRIP VI SCH ×4 (06:14→22:15)
[2023-04-13] MEDS: InsuLIN REG 1unit/0.01ml Soln (100units/ml) SC SCH ×4 (06:21→22:50)
[2023-04-13 06:45] LABS: Basophils # (auto) 0.1 10 ^3/uL (0-0.2); Basophils % (auto) 0.8 % (0.0-2.0); Eosinophils # (auto) 0.8 10 ^3/uL (0-0.8); Eosinophils % (auto) 7.3 % (0.0-7.0); Hematocrit 35.7 % (41.0-53.0); Hemoglobin 11.8 g/dL (13.5-17.5); Lymphocytes # (auto) 2.9 10 ^3/uL (0.4-5.4); Lymphocytes % (auto) 25.4 % (10.0-50.0); Mean Corpuscular Hemoglobin 28.1 pg (28.0-32.0); Mean Corpuscular Volume 85.3 fL (80.0-100.0); Monocytes # (auto) 0.6 10 ^3/uL (0-1.3); Monocytes % (auto) 5.2 % (0.0-12.0); Neutrophils # (auto) 7.1 10 ^3/uL (1.6-8.6); Neutrophils % (auto) 61.3 % (37.0-80.0); Red Blood Cells 4.18 10^6/uL (4.5-5.90); Red Cell Distribution Width 16.5 % (11.8-14.3); White Blood Cell 11.6 10^3/uL (4.4-10.8)
[2023-04-13 07:00] LABS: Potassium 5.2 mmol/L (3.5-5.1)
[2023-04-13 07:17] LABS: Albumin 2.8 g/dL (3.4-5.0); BUN/Creatinine Ratio 24.3 (10.0-20.0); Bilirubin, Total 0.7 mg/dL (0.2-1.0); Total Protein 7.8 g/dL (6.4-8.2)
[2023-04-13 09:00] VITALS: BP 137/80; PULSE 91; RESP 20; TEMP 98; O2SAT 99
[2023-04-13] MEDS: CARVEDILOL 12.5 MG TAB PO SCH ×2 (09:19→22:15)
[2023-04-13] MEDS ORDERED: cloNIDine HCL 0.1 MG TAB PO PRN (10:15)
[2023-04-13] MEDS ORDERED: CEFEPIME 1GM/ 50ML 50 ML IV ONE (10:15)
[2023-04-13] MEDS: SODIUM CHLORIDE 0.9% 1,000 ML IV SCH ×3 (11:52→21:50)
[2023-04-13 12:54] VITALS: BP 116/62; PULSE 74; RESP 21; TEMP 98; O2SAT 97
[2023-04-13] MEDS: SODIUM BICARBONATE 650 MG TAB PO SCH ×2 (15:27→22:15)
[2023-04-13] MEDS: NYSTATIN TOPICAL POWDER 15GM TOP SCH ×2 (15:27→22:14)
[2023-04-13] MEDS: hydrALAZINE HCL 25 MG TAB PO SCH ×2 (15:28→22:15)
[2023-04-13 16:41] VITALS: BP 125/83; PULSE 70; RESP 20; TEMP 97.5; O2SAT 95
[2023-04-13 20:00] VITALS: PULSE 74
[2023-04-13 22:00] VITALS: BP 148/71; PULSE 76; RESP 16; TEMP 98.1; O2SAT 96
[2023-04-13] MEDS: INSULIN LANTUS (GLARGINE) 1 /0.01ml (100units/ml) SC SCH (22:00)
[2023-04-13] MEDS: MUPIROCIN 2% OINT 15gm or 22gm FOR MRSA NARES EACHNOSTRI SCH (22:14)
[2023-04-13] MEDS: CEFEPIME 1GM/ 50ML 50 ML IV SCH (22:14)
[2023-04-13] MEDS: LINEZOLID 600MG/300ML 300 ML IV SCH (22:15)
[2023-04-14] VITALS (7 sets, daily range): BP systolic 94–152; BP diastolic 51–81; PULSE 60–72; RESP 16–18; TEMP 97.6–98; O2SAT 94–98
[2023-04-14] MEDS: hydrALAZINE HCL 25 MG TAB PO SCH ×3 (05:23→23:53)
[2023-04-14] MEDS: SODIUM BICARBONATE 650 MG TAB PO SCH ×3 (05:23→23:53)
[2023-04-14] MEDS: GABAPENTIN 300 MG CAP PO SCH ×3 (05:23→23:53)
[2023-04-14] MEDS: ACCU-CHEK COMFORT CURVE STRIP VI SCH ×4 (05:24→23:54)
[2023-04-14] MEDS: SODIUM CHLOR 0.9% PF (SALINE LOCK) 10ML VIAL/SYR IV SCH ×2 (05:24→13:49)
[2023-04-14] MEDS: InsuLIN REG 1unit/0.01ml Soln (100units/ml) SC SCH ×3 (07:00→17:00)
[2023-04-14 08:27] LABS: BUN/Creatinine Ratio 28.3 (10.0-20.0); Calcium 8.6 mg/dL (8.7-10.4)
[2023-04-14] MEDS: NYSTATIN TOPICAL POWDER 15GM TOP SCH ×2 (11:05→23:54)
[2023-04-14] MEDS: MUPIROCIN 2% OINT 15gm or 22gm FOR MRSA NARES EACHNOSTRI SCH ×2 (11:05→23:54)
[2023-04-14] MEDS: CEFEPIME 1GM/ 50ML 50 ML IV SCH ×2 (11:05→23:52)
[2023-04-14] MEDS: LINEZOLID 600MG/300ML 300 ML IV SCH ×2 (11:05→23:52)
[2023-04-14] MEDS: CARVEDILOL 12.5 MG TAB PO SCH ×2 (11:08→23:53)
[2023-04-14] MEDS: diphenhdrAMINE HCL 50 MG/1 ML VL IV PRN ×2 (13:49→23:53)
[2023-04-14 13:55] LABS: Urine Bacteria NONE SEEN /hpf (None Seen); Urine Blood Negative /uL (Negative); Urine Clarity HAZY (Clear); Urine Protein, UAD 1+ (Negative); Urine Specific Gravity 1.011 (1.001-1.035); Urine Urobilinogen Normal (Negative); Urine WBC 296 /hpf (0 - 3); Urine pH 5.5 (5.0-8.0)
[2023-04-14 13:58] LABS: Urine Color Straw (Yellow)
[2023-04-14 17:56] LABS: Protein, Urine 71.6 mg/dL (0.0-11.9)
[2023-04-14 17:59] LABS: Creatinine, Urine 32.97 mg/dL (30.0-125.0)
[2023-04-15] VITALS (7 sets, daily range): BP systolic 92–134; BP diastolic 58–77; PULSE 63–69; RESP 12–18; TEMP 97.2–98.9; O2SAT 94–99
[2023-04-15] MEDS: DAKINS HALF STR 0.25% (NaHypochlorite) 473 ML TOPICAL SOL TOP SCH ×3 (00:10→23:18)
[2023-04-15] MEDS: InsuLIN REG 1unit/0.01ml Soln (100units/ml) SC SCH ×5 (00:11→23:15)
[2023-04-15] MEDS: INSULIN LANTUS (GLARGINE) 1 /0.01ml (100units/ml) SC SCH ×2 (00:11→23:16)
[2023-04-15] MEDS: SODIUM CHLOR 0.9% PF (SALINE LOCK) 10ML VIAL/SYR IV SCH ×4 (00:12→23:17)
[2023-04-15 06:12] LABS: Basophils # (auto) 0 10 ^3/uL (0-0.2); Basophils % (auto) 0.3 % (0.0-2.0); Eosinophils # (auto) 1.1 10 ^3/uL (0-0.8); Eosinophils % (auto) 11.8 % (0.0-7.0); Hematocrit 33.8 % (41.0-53.0); Lymphocytes # (auto) 2.2 10 ^3/uL (0.4-5.4); Lymphocytes % (auto) 23.1 % (10.0-50.0); Mean Corpuscular Hemoglobin 27.8 pg (28.0-32.0); Mean Corpuscular Hgb Conc. 32.7 g/dL (32.0-36.0); Monocytes # (auto) 0.5 10 ^3/uL (0-1.3); Monocytes % (auto) 5.2 % (0.0-12.0); Neutrophils # (auto) 5.6 10 ^3/uL (1.6-8.6); Neutrophils % (auto) 59.6 % (37.0-80.0); Nucleated Red Blood Cells % 0.1 %; Red Blood Cells 3.98 10^6/uL (4.5-5.90); Red Cell Distribution Width 16.2 % (11.8-14.3); White Blood Cell 9.3 10^3/uL (4.4-10.8)
[2023-04-15 06:35] LABS: Anion Gap 9.2 (5-15); Carbon Dioxide 19.8 mmol/L (20-30); Chloride 106 mmol/L (98-107); Potassium 4.9 mmol/L (3.5-5.1); Sodium 135 mmol/L (136-145)
[2023-04-15 06:36] LABS: Calcium 8.6 mg/dL (8.5-10.1)
[2023-04-15 06:41] LABS: BUN/Creatinine Ratio 29.8 (10.0-20.0); Blood Urea Nitrogen 61 mg/dL (9-23); Glucose 229 mg/dL (74-106)
[2023-04-15] MEDS: GABAPENTIN 300 MG CAP PO SCH ×3 (06:58→23:18)
[2023-04-15] MEDS: hydrALAZINE HCL 25 MG TAB PO SCH ×3 (06:58→23:17)
[2023-04-15] MEDS: ACCU-CHEK COMFORT CURVE STRIP VI SCH ×4 (06:59→23:18)
[2023-04-15] MEDS: SODIUM BICARBONATE 650 MG TAB PO SCH ×3 (06:59→23:16)
[2023-04-15] MEDS: CEFEPIME 1GM/ 50ML 50 ML IV SCH ×2 (11:31→23:20)
[2023-04-15] MEDS: CARVEDILOL 12.5 MG TAB PO SCH ×2 (11:32→23:17)
[2023-04-15] MEDS: NYSTATIN TOPICAL POWDER 15GM TOP SCH ×2 (11:41→23:18)
[2023-04-15] MEDS: MUPIROCIN 2% OINT 15gm or 22gm FOR MRSA NARES EACHNOSTRI SCH ×2 (11:42→23:19)
[2023-04-15] MEDS: LINEZOLID 600MG/300ML 300 ML IV SCH ×2 (12:03→23:17)
[2023-04-15] MEDS: diphenhdrAMINE HCL 50 MG/1 ML VL IV PRN (14:14)
[2023-04-16] VITALS (7 sets, daily range): BP systolic 119–151; BP diastolic 66–89; PULSE 69–72; RESP 16–18; TEMP 97.5–98.4; O2SAT 93–97
[2023-04-16] MEDS: SODIUM CHLOR 0.9% PF (SALINE LOCK) 10ML VIAL/SYR IV SCH ×3 (05:28→22:51)
[2023-04-16] MEDS: GABAPENTIN 300 MG CAP PO SCH ×3 (05:28→22:39)
[2023-04-16] MEDS: SODIUM BICARBONATE 650 MG TAB PO SCH ×3 (05:28→22:40)
[2023-04-16] MEDS: hydrALAZINE HCL 25 MG TAB PO SCH ×3 (05:28→22:41)
[2023-04-16] MEDS: diphenhdrAMINE HCL 50 MG/1 ML VL IV PRN ×2 (05:35→09:43)
[2023-04-16 06:21] LABS: Chloride 107 mmol/L (98-107); Potassium 4.8 mmol/L (3.5-5.1); Sodium 136 mmol/L (136-145)
[2023-04-16 06:22] LABS: Calcium 8.8 mg/dL (8.5-10.1)
[2023-04-16 06:27] LABS: BUN/Creatinine Ratio 27.4 (10.0-20.0); Blood Urea Nitrogen 59 mg/dL (9-23); Glucose 304 mg/dL (74-106)
[2023-04-16] MEDS: InsuLIN REG 1unit/0.01ml Soln (100units/ml) SC SCH ×4 (06:34→22:38)
[2023-04-16] MEDS: ACCU-CHEK COMFORT CURVE STRIP VI SCH ×4 (06:35→22:51)
[2023-04-16] MEDS: LINEZOLID 600MG/300ML 300 ML IV SCH (09:31)
[2023-04-16] MEDS: CEFEPIME 1GM/ 50ML 50 ML IV SCH (09:31)
[2023-04-16] MEDS: CARVEDILOL 12.5 MG TAB PO SCH ×2 (09:32→22:41)
[2023-04-16] MEDS: NYSTATIN TOPICAL POWDER 15GM TOP SCH ×2 (09:40→22:50)
[2023-04-16] MEDS: MUPIROCIN 2% OINT 15gm or 22gm FOR MRSA NARES EACHNOSTRI SCH ×2 (09:40→22:50)
[2023-04-16] MEDS: DAKINS HALF STR 0.25% (NaHypochlorite) 473 ML TOPICAL SOL TOP SCH ×2 (09:40→22:50)
[2023-04-16] MEDS: DAPTOmycin 500 MG in SODIUM CHL 0.9% 50 ML IV SCH (18:28)
[2023-04-16] MEDS: INSULIN LANTUS (GLARGINE) 1 /0.01ml (100units/ml) SC SCH (22:38)
[2023-04-16] MEDS: HYDROcodone-ACET 5/325MG TAB PO PRN (22:40)
[2023-04-17] VITALS (7 sets, daily range): BP systolic 95–126; BP diastolic 55–74; PULSE 67–77; RESP 16–18; TEMP 97.5–98.4; O2SAT 94–97
[2023-04-17] MEDS: ACCU-CHEK COMFORT CURVE STRIP VI SCH ×4 (06:31→22:29)
[2023-04-17] MEDS: InsuLIN REG 1unit/0.01ml Soln (100units/ml) SC SCH ×4 (06:32→22:28)
[2023-04-17] MEDS: SODIUM CHLOR 0.9% PF (SALINE LOCK) 10ML VIAL/SYR IV SCH ×3 (06:32→22:19)
[2023-04-17] MEDS: hydrALAZINE HCL 25 MG TAB PO SCH ×3 (06:33→22:00)
[2023-04-17] MEDS: SODIUM BICARBONATE 650 MG TAB PO SCH ×3 (06:34→22:18)
[2023-04-17] MEDS: GABAPENTIN 300 MG CAP PO SCH ×3 (06:34→22:18)
[2023-04-17 06:37] LABS: Anion Gap 7.7 (5-15); Carbon Dioxide 20.3 mmol/L (20-30); Chloride 109 mmol/L (98-107); Potassium 4.6 mmol/L (3.5-5.1); Sodium 137 mmol/L (136-145)
[2023-04-17 06:43] LABS: BUN/Creatinine Ratio 24.4 (10.0-20.0)
[2023-04-17 06:44] LABS: Blood Urea Nitrogen 48 mg/dL (9-23); Glucose 156 mg/dL (74-106)
[2023-04-17 06:59] LABS: Hematocrit 33.8 % (41.0-53.0); Hemoglobin 11.1 g/dL (13.5-17.5); Mean Corpuscular Hemoglobin 27.8 pg (28.0-32.0); Mean Corpuscular Hgb Conc. 32.9 g/dL (32.0-36.0); Mean Corpuscular Volume 84.6 fL (80.0-100.0); Red Cell Distribution Width 16.3 % (11.8-14.3); White Blood Cell 9.7 10^3/uL (4.4-10.8)
[2023-04-17 07:05] LABS: Band Neutrophils % (manual) 0; Basophils % (manual) 0 (0.0-2.0); Blast Cells 0; Metamyelocytes % 0; Myelocytes % 0; Promyelocytes % 0; Reactive Lymphocytes 0
[2023-04-17 08:21] LABS: Eosinophils % (manual) 12 (0-7); Lymphocytes % (manual) 36 (10.0-50.0); Monocytes % (manual) 5 (0-12)
[2023-04-17 08:22] LABS: Platelet Estimate Adequate
[2023-04-17] MEDS: CARVEDILOL 12.5 MG TAB PO SCH ×2 (09:35→22:00)
[2023-04-17] MEDS: MUPIROCIN 2% OINT 15gm or 22gm FOR MRSA NARES EACHNOSTRI SCH ×2 (09:35→22:19)
[2023-04-17] MEDS: NYSTATIN TOPICAL POWDER 15GM TOP SCH ×2 (09:36→22:18)
[2023-04-17] MEDS: DAKINS HALF STR 0.25% (NaHypochlorite) 473 ML TOPICAL SOL TOP SCH ×2 (11:50→22:19)
[2023-04-17] MEDS: DAPTOmycin 500 MG in SODIUM CHL 0.9% 50 ML IV SCH (16:25)
[2023-04-17] MEDS: INSULIN LANTUS (GLARGINE) 1 /0.01ml (100units/ml) SC SCH (22:29)
[2023-04-18] VITALS (7 sets, daily range): BP systolic 109–163; BP diastolic 62–93; PULSE 70–74; RESP 16–18; TEMP 97.9–98.8; O2SAT 93–97
[2023-04-18] MEDS: SODIUM CHLOR 0.9% PF (SALINE LOCK) 10ML VIAL/SYR IV SCH ×3 (06:14→22:21)
[2023-04-18] MEDS: ACCU-CHEK COMFORT CURVE STRIP VI SCH ×4 (06:14→22:21)
[2023-04-18] MEDS: hydrALAZINE HCL 25 MG TAB PO SCH ×3 (06:15→22:00)
[2023-04-18] MEDS: GABAPENTIN 300 MG CAP PO SCH ×3 (06:15→22:20)
[2023-04-18] MEDS: SODIUM BICARBONATE 650 MG TAB PO SCH ×3 (06:16→22:21)
[2023-04-18] MEDS: InsuLIN REG 1unit/0.01ml Soln (100units/ml) SC SCH ×4 (06:39→22:37)
[2023-04-18 07:02] LABS: Anion Gap 6.9 (5-15); Carbon Dioxide 22.1 mmol/L (20-30); Chloride 108 mmol/L (98-107); Potassium 4.3 mmol/L (3.5-5.1); Sodium 137 mmol/L (136-145)
[2023-04-18 07:03] LABS: Calcium 9.1 mg/dL (8.7-10.4)
[2023-04-18 07:07] LABS: Glucose 212 mg/dL (74-106)
[2023-04-18 07:08] LABS: BUN/Creatinine Ratio 26.8 (10.0-20.0); Blood Urea Nitrogen 52 mg/dL (9-23)
[2023-04-18] MEDS: CARVEDILOL 12.5 MG TAB PO SCH ×2 (09:08→22:20)
[2023-04-18] MEDS: NYSTATIN TOPICAL POWDER 15GM TOP SCH ×2 (09:08→22:21)
[2023-04-18] MEDS: MUPIROCIN 2% OINT 15gm or 22gm FOR MRSA NARES EACHNOSTRI SCH (09:08)
[2023-04-18] MEDS: DAKINS HALF STR 0.25% (NaHypochlorite) 473 ML TOPICAL SOL TOP SCH ×2 (09:09→22:22)
[2023-04-18] MEDS: DAPTOmycin 500 MG in SODIUM CHL 0.9% 50 ML IV SCH (16:36)
[2023-04-18] MEDS: HYDROcodone-ACET 5/325MG TAB PO PRN (20:04)
[2023-04-18] MEDS ORDERED: MELATONIN 5 MG TAB PO ONE (22:00)
[2023-04-18] MEDS: INSULIN LANTUS (GLARGINE) 1 /0.01ml (100units/ml) SC SCH (22:41)
[2023-04-19 05:00] VITALS: BP 125/73; PULSE 67; RESP 18; TEMP 97.7; O2SAT 95
[2023-04-19] MEDS: SODIUM CHLOR 0.9% PF (SALINE LOCK) 10ML VIAL/SYR IV SCH ×3 (06:22→21:48)
[2023-04-19] MEDS: ACCU-CHEK COMFORT CURVE STRIP VI SCH ×4 (06:23→21:50)
[2023-04-19] MEDS: SODIUM BICARBONATE 650 MG TAB PO SCH ×3 (06:23→21:48)
[2023-04-19] MEDS: hydrALAZINE HCL 25 MG TAB PO SCH ×3 (06:23→21:48)
[2023-04-19] MEDS: GABAPENTIN 300 MG CAP PO SCH ×3 (06:23→21:49)
[2023-04-19 06:25] LABS: Basophils # (auto) 0.1 10 ^3/uL (0-0.2); Basophils % (auto) 0.8 % (0.0-2.0); Eosinophils # (auto) 1.4 10 ^3/uL (0-0.8); Eosinophils % (auto) 13.8 % (0.0-7.0); Hematocrit 31.7 % (41.0-53.0); Hemoglobin 10.5 g/dL (13.5-17.5); Lymphocytes # (auto) 3.1 10 ^3/uL (0.4-5.4); Lymphocytes % (auto) 30.3 % (10.0-50.0); Mean Corpuscular Hemoglobin 28.2 pg (28.0-32.0); Mean Corpuscular Hgb Conc. 33.1 g/dL (32.0-36.0); Mean Corpuscular Volume 85.3 fL (80.0-100.0); Monocytes # (auto) 0.6 10 ^3/uL (0-1.3); Monocytes % (auto) 5.4 % (0.0-12.0); Neutrophils # (auto) 5.1 10 ^3/uL (1.6-8.6); Neutrophils % (auto) 49.7 % (37.0-80.0); Red Blood Cells 3.72 10^6/uL (4.5-5.90); Red Cell Distribution Width 16.4 % (11.8-14.3); White Blood Cell 10.3 10^3/uL (4.4-10.8)
[2023-04-19] MEDS: InsuLIN REG 1unit/0.01ml Soln (100units/ml) SC SCH ×4 (06:28→22:03)
[2023-04-19 06:49] LABS: Chloride 109 mmol/L (98-107); Potassium 4.8 mmol/L (3.5-5.1); Sodium 135 mmol/L (136-145)
[2023-04-19 06:50] LABS: Anion Gap 3.9 (5-15); Calcium 9.1 mg/dL (8.7-10.4); Carbon Dioxide 22.1 mmol/L (20-30)
[2023-04-19 06:55] LABS: BUN/Creatinine Ratio 31.2 (10.0-20.0); Blood Urea Nitrogen 53 mg/dL (9-23); Glucose 164 mg/dL (74-106)
[2023-04-19 09:06] VITALS: BP 134/79; PULSE 65; RESP 17; TEMP 98.5; O2SAT 95
[2023-04-19] MEDS: NYSTATIN TOPICAL POWDER 15GM TOP SCH ×2 (09:39→21:50)
[2023-04-19] MEDS: DAKINS HALF STR 0.25% (NaHypochlorite) 473 ML TOPICAL SOL TOP SCH ×2 (09:39→21:50)
[2023-04-19] MEDS: CARVEDILOL 12.5 MG TAB PO SCH ×2 (09:39→21:49)
[2023-04-19 12:47] VITALS: BP 153/99; PULSE 69; RESP 17; TEMP 98.6; O2SAT 97
[2023-04-19] MEDS: DAPTOmycin 500 MG in SODIUM CHL 0.9% 50 ML IV SCH (16:36)
[2023-04-19 16:54] VITALS: BP 109/67; PULSE 68; RESP 17; TEMP 98.4; O2SAT 96
[2023-04-19 20:00] VITALS: PULSE 74; RESP 18; O2SAT 95
[2023-04-19 22:00] VITALS: BP 155/81; PULSE 74; RESP 20; TEMP 98.5; O2SAT 95
[2023-04-19] MEDS: INSULIN LANTUS (GLARGINE) 1 /0.01ml (100units/ml) SC SCH (22:07)
[2023-04-19] MEDS: HYDROcodone-ACET 5/325MG TAB PO PRN (22:07)
[2023-04-19] MEDS ORDERED: TEMAZEPAM 15 MG CAP PO ONE (22:45)
[2023-04-20 05:00] VITALS: BP 143/79; PULSE 68; RESP 18; TEMP 97.7; O2SAT 94
[2023-04-20] MEDS: GABAPENTIN 300 MG CAP PO SCH ×3 (06:41→21:33)
[2023-04-20] MEDS: SODIUM BICARBONATE 650 MG TAB PO SCH ×3 (06:41→21:32)
[2023-04-20] MEDS: hydrALAZINE HCL 25 MG TAB PO SCH ×3 (06:41→21:32)
[2023-04-20] MEDS: SODIUM CHLOR 0.9% PF (SALINE LOCK) 10ML VIAL/SYR IV SCH ×3 (06:42→21:40)
[2023-04-20] MEDS: ACCU-CHEK COMFORT CURVE STRIP VI SCH ×4 (06:42→22:00)
[2023-04-20] MEDS: InsuLIN REG 1unit/0.01ml Soln (100units/ml) SC SCH ×4 (06:47→21:44)
[2023-04-20 08:50] VITALS: BP 149/76; PULSE 71; RESP 18; TEMP 98.5; O2SAT 95
[2023-04-20] MEDS: NYSTATIN TOPICAL POWDER 15GM TOP SCH ×2 (10:03→22:00)
[2023-04-20] MEDS: DAKINS HALF STR 0.25% (NaHypochlorite) 473 ML TOPICAL SOL TOP SCH ×2 (10:03→22:00)
[2023-04-20] MEDS: CARVEDILOL 12.5 MG TAB PO SCH ×2 (10:03→21:33)
[2023-04-20 12:29] VITALS: BP 170/94; PULSE 72; RESP 17; TEMP 98; O2SAT 96
[2023-04-20] MEDS: DAPTOmycin 500 MG in SODIUM CHL 0.9% 50 ML IV SCH (16:11)
[2023-04-20 16:54] VITALS: BP 128/82; PULSE 70; RESP 19; TEMP 98.6; O2SAT 94
[2023-04-20 20:00] VITALS: RESP 17; O2SAT 96
[2023-04-20] MEDS: diphenhdrAMINE HCL 50 MG/1 ML VL IV PRN (21:34)
[2023-04-20] MEDS: HYDROcodone-ACET 5/325MG TAB PO PRN (21:34)
[2023-04-20] MEDS: INSULIN LANTUS (GLARGINE) 1 /0.01ml (100units/ml) SC SCH (21:45)
[2023-04-20 22:00] VITALS: BP 139/71; PULSE 72; RESP 18; TEMP 97.5; O2SAT 94
[2023-04-21 05:00] VITALS: BP 128/78; PULSE 65; RESP 20; TEMP 97.6; O2SAT 97
[2023-04-21] MEDS: SODIUM BICARBONATE 650 MG TAB PO SCH ×3 (05:24→21:38)
[2023-04-21] MEDS: ACCU-CHEK COMFORT CURVE STRIP VI SCH ×4 (05:25→21:50)
[2023-04-21] MEDS: SODIUM CHLOR 0.9% PF (SALINE LOCK) 10ML VIAL/SYR IV SCH ×3 (05:25→21:38)
[2023-04-21] MEDS: GABAPENTIN 300 MG CAP PO SCH ×3 (05:25→21:39)
[2023-04-21] MEDS: hydrALAZINE HCL 25 MG TAB PO SCH ×3 (05:25→21:39)
[2023-04-21] MEDS: InsuLIN REG 1unit/0.01ml Soln (100units/ml) SC SCH ×4 (05:31→21:49)
[2023-04-21 09:00] VITALS: BP 145/69; PULSE 67; RESP 19; TEMP 98.5; O2SAT 97
[2023-04-21] MEDS: CARVEDILOL 12.5 MG TAB PO SCH ×2 (09:34→21:39)
[2023-04-21] MEDS: NYSTATIN TOPICAL POWDER 15GM TOP SCH ×2 (09:35→21:50)
[2023-04-21] MEDS: DAKINS HALF STR 0.25% (NaHypochlorite) 473 ML TOPICAL SOL TOP SCH ×2 (09:35→21:50)
[2023-04-21 13:00] VITALS: BP 144/84; PULSE 68; RESP 18; TEMP 98.8; O2SAT 94
[2023-04-21] MEDS: DAPTOmycin 500 MG in SODIUM CHL 0.9% 50 ML IV SCH (16:52)
[2023-04-21 17:00] VITALS: BP 149/72; PULSE 69; RESP 18; TEMP 98.8; O2SAT 93
[2023-04-21 20:00] VITALS: PULSE 72; RESP 18; O2SAT 94
[2023-04-21] MEDS: INSULIN LANTUS (GLARGINE) 1 /0.01ml (100units/ml) SC SCH (21:50)
[2023-04-21 22:00] VITALS: BP 128/80; PULSE 72; RESP 18; TEMP 97.7; O2SAT 94
[2023-04-22 05:05] VITALS: BP 104/52; PULSE 67; RESP 19; TEMP 98; O2SAT 96
[2023-04-22] MEDS: SODIUM CHLOR 0.9% PF (SALINE LOCK) 10ML VIAL/SYR IV SCH ×3 (05:50→23:01)
[2023-04-22] MEDS: SODIUM BICARBONATE 650 MG TAB PO SCH ×3 (06:06→22:41)
[2023-04-22] MEDS: hydrALAZINE HCL 25 MG TAB PO SCH ×3 (06:06→22:41)
[2023-04-22] MEDS: ACCU-CHEK COMFORT CURVE STRIP VI SCH ×4 (06:07→22:40)
[2023-04-22] MEDS: GABAPENTIN 300 MG CAP PO SCH ×3 (06:07→22:41)
[2023-04-22] MEDS: InsuLIN REG 1unit/0.01ml Soln (100units/ml) SC SCH ×4 (06:10→23:00)
[2023-04-22 09:00] VITALS: BP 127/72; PULSE 69; RESP 18; TEMP 98.4; O2SAT 96
[2023-04-22] MEDS: DAKINS HALF STR 0.25% (NaHypochlorite) 473 ML TOPICAL SOL TOP SCH ×2 (10:00→22:00)
[2023-04-22] MEDS: NYSTATIN TOPICAL POWDER 15GM TOP SCH ×2 (10:00→22:00)
[2023-04-22] MEDS: CARVEDILOL 12.5 MG TAB PO SCH ×2 (11:14→22:40)
[2023-04-22 13:00] VITALS: BP 144/87; PULSE 70; RESP 20; TEMP 97.6; O2SAT 94
[2023-04-22] MEDS: DAPTOmycin 500 MG in SODIUM CHL 0.9% 50 ML IV SCH (16:17)
[2023-04-22 17:00] VITALS: BP 113/60; PULSE 62; RESP 17; TEMP 98.2; O2SAT 96
[2023-04-22 22:00] VITALS: BP 143/64; PULSE 68; RESP 20; TEMP 98.3; O2SAT 96
[2023-04-22] MEDS: INSULIN LANTUS (GLARGINE) 1 /0.01ml (100units/ml) SC SCH (23:01)
[2023-04-23] MEDS: ACCU-CHEK COMFORT CURVE STRIP VI SCH ×4 (06:10→23:11)
[2023-04-23] MEDS: hydrALAZINE HCL 25 MG TAB PO SCH ×3 (06:10→23:06)
[2023-04-23] MEDS: GABAPENTIN 300 MG CAP PO SCH ×3 (06:10→23:06)
[2023-04-23] MEDS: SODIUM BICARBONATE 650 MG TAB PO SCH ×3 (06:10→23:05)
[2023-04-23] MEDS: InsuLIN REG 1unit/0.01ml Soln (100units/ml) SC SCH ×4 (06:11→22:00)
[2023-04-23] MEDS: SODIUM CHLOR 0.9% PF (SALINE LOCK) 10ML VIAL/SYR IV SCH ×3 (06:11→22:00)
[2023-04-23 09:00] VITALS: BP 144/93; PULSE 74; RESP 20; TEMP 98.2; O2SAT 96
[2023-04-23] MEDS: DAKINS HALF STR 0.25% (NaHypochlorite) 473 ML TOPICAL SOL TOP SCH ×2 (10:41→23:11)
[2023-04-23] MEDS: CARVEDILOL 12.5 MG TAB PO SCH ×2 (10:41→23:06)
[2023-04-23] MEDS: NYSTATIN TOPICAL POWDER 15GM TOP SCH ×2 (10:42→23:12)
[2023-04-23 13:00] VITALS: BP 136/74; PULSE 70; RESP 20; TEMP 98; O2SAT 95
[2023-04-23 17:00] VITALS: BP 124/79; PULSE 71; RESP 20; TEMP 98.5; O2SAT 95
[2023-04-23 20:00] VITALS: PULSE 72; RESP 18; O2SAT 94
[2023-04-23 22:00] VITALS: BP 123/66; PULSE 72; RESP 18; TEMP 97.8; O2SAT 94
[2023-04-23] MEDS: INSULIN LANTUS (GLARGINE) 1 /0.01ml (100units/ml) SC SCH (22:00)
[2023-04-23] MEDS: DAPTOmycin 500 MG in SODIUM CHL 0.9% 50 ML IV SCH (23:05)
[2023-04-23] MEDS: diphenhdrAMINE HCL 50 MG/1 ML VL IV PRN (23:13)
[2023-04-24 05:00] VITALS: BP 124/60; PULSE 71; RESP 18; TEMP 98; O2SAT 98
[2023-04-24] MEDS: InsuLIN REG 1unit/0.01ml Soln (100units/ml) SC SCH ×4 (05:33→22:00)
[2023-04-24] MEDS: SODIUM CHLOR 0.9% PF (SALINE LOCK) 10ML VIAL/SYR IV SCH ×2 (06:00→13:34)
[2023-04-24] MEDS: GABAPENTIN 300 MG CAP PO SCH ×3 (06:39→23:26)
[2023-04-24] MEDS: ACCU-CHEK COMFORT CURVE STRIP VI SCH ×3 (06:39→17:21)
[2023-04-24] MEDS: SODIUM BICARBONATE 650 MG TAB PO SCH ×3 (06:39→23:28)
[2023-04-24] MEDS: hydrALAZINE HCL 25 MG TAB PO SCH ×3 (06:40→23:28)
[2023-04-24] MEDS: diphenhdrAMINE HCL 50 MG/1 ML VL IV PRN (06:49)
[2023-04-24 08:00] VITALS: BP 158/105; PULSE 72; RESP 20; TEMP 97.6; O2SAT 95
[2023-04-24] MEDS: CARVEDILOL 12.5 MG TAB PO SCH ×2 (10:10→23:27)
[2023-04-24] MEDS: DAKINS HALF STR 0.25% (NaHypochlorite) 473 ML TOPICAL SOL TOP SCH (10:10)
[2023-04-24] MEDS: NYSTATIN TOPICAL POWDER 15GM TOP SCH (10:11)
[2023-04-24 12:00] VITALS: BP 156/83; PULSE 71; RESP 20; TEMP 98; O2SAT 100
[2023-04-24 13:25] LABS: INR 1.02 (0.9-1.15); Partial Thromboplastin Time 28.5 SEC (24.5-34.5); Prothrombin Time 10.7 sec (9.3-11.8)
[2023-04-24] MEDS ORDERED: LIDOCAINE 1% (LOCAL ANESTH.) PF 5ml SDV ID ONE (15:00)
[2023-04-24] MEDS: DAPTOmycin 500 MG in SODIUM CHL 0.9% 50 ML IV SCH (15:54)
[2023-04-24 16:00] VITALS: BP 138/65; PULSE 71; RESP 20; TEMP 97.7; O2SAT 99
[2023-04-24 20:00] VITALS: PULSE 72; RESP 18; O2SAT 98
[2023-04-24] MEDS: INSULIN LANTUS (GLARGINE) 1 /0.01ml (100units/ml) SC SCH (22:00)
[2023-04-24 22:15] VITALS: BP 127/71; PULSE 72; RESP 18; TEMP 100; O2SAT 98
[2023-04-25] MEDS: SODIUM CHLOR 0.9% PF (SALINE LOCK) 10ML VIAL/SYR IV SCH ×5 (00:34→14:19)
[2023-04-25] MEDS: DAKINS HALF STR 0.25% (NaHypochlorite) 473 ML TOPICAL SOL TOP SCH ×2 (00:35→11:59)
[2023-04-25] MEDS: ACCU-CHEK COMFORT CURVE STRIP VI SCH ×4 (00:35→17:36)
[2023-04-25 05:19] VITALS: BP 139/78; PULSE 100; RESP 17; TEMP 98.4; O2SAT 100
[2023-04-25] MEDS: InsuLIN REG 1unit/0.01ml Soln (100units/ml) SC SCH ×3 (06:09→17:39)
[2023-04-25] MEDS: SODIUM BICARBONATE 650 MG TAB PO SCH ×2 (06:18→14:18)
[2023-04-25] MEDS: GABAPENTIN 300 MG CAP PO SCH ×2 (06:18→14:18)
[2023-04-25 06:19] LABS: Basophils # (auto) 0.1 10 ^3/uL (0-0.2); Basophils % (auto) 0.6 % (0.0-2.0); Eosinophils # (auto) 0.8 10 ^3/uL (0-0.8); Eosinophils % (auto) 7.3 % (0.0-7.0); Hematocrit 31.8 % (41.0-53.0); Hemoglobin 10.5 g/dL (13.5-17.5); Lymphocytes % (auto) 27.9 % (10.0-50.0); Mean Corpuscular Hgb Conc. 33.1 g/dL (32.0-36.0); Mean Corpuscular Volume 84.7 fL (80.0-100.0); Monocytes # (auto) 0.6 10 ^3/uL (0-1.3); Monocytes % (auto) 5.4 % (0.0-12.0); Neutrophils # (auto) 6.4 10 ^3/uL (1.6-8.6); Neutrophils % (auto) 58.8 % (37.0-80.0); Nucleated Red Blood Cells % 0.1 %; Red Blood Cells 3.75 10^6/uL (4.5-5.90); Red Cell Distribution Width 16.8 % (11.8-14.3); White Blood Cell 10.9 10^3/uL (4.4-10.8)
[2023-04-25] MEDS: hydrALAZINE HCL 25 MG TAB PO SCH ×2 (06:20→14:18)
[2023-04-25 07:55] LABS: Alanine Aminotransferase 27 U/L (7-40); Alkaline Phosphatase 170 U/L (46-116); Anion Gap 8.7 (5-15); BUN/Creatinine Ratio 31.8 (10.0-20.0); Blood Urea Nitrogen 64 mg/dL (9-23); Calcium 9.5 mg/dL (8.5-10.1); Carbon Dioxide 22.3 mmol/L (20-30); Chloride 106 mmol/L (98-107); Glucose 202 mg/dL (74-106); Potassium 5.2 mmol/L (3.5-5.1); Sodium 137 mmol/L (136-145)
[2023-04-25 07:56] LABS: Albumin 3.6 g/dL (3.2-4.8); Aspartate Aminotransferase 22 U/L (13-40); Bilirubin, Total 0.4 mg/dL (0.2-1.0)
[2023-04-25 08:00] VITALS: PULSE 69; RESP 20; O2SAT 99
[2023-04-25 10:00] VITALS: BP 156/95; PULSE 69; TEMP 98.7; O2SAT 99
[2023-04-25] MEDS: CARVEDILOL 12.5 MG TAB PO SCH (11:58)
[2023-04-25] MEDS ORDERED: SODIUM ZIRCONIUM CYCL 10 GM PAK PO ONE (12:30)
[2023-04-25 12:50] VITALS: BP 159/99; PULSE 68; RESP 20; TEMP 98.6; O2SAT 92
[2023-04-25] MEDS: DAPTOmycin 500 MG in SODIUM CHL 0.9% 50 ML IV SCH (13:19)
[2023-04-25 13:27] VITALS: BP 159/95; PULSE 68; RESP 20; TEMP 98.6; O2SAT 92
[2023-04-25 16:51] VITALS: BP 116/55; PULSE 69; RESP 18; TEMP 98.5; O2SAT 97
== END 2023-04-25 19:50 | disposition home health service (06) | DRG 638 ==
LOC: EDBD 23:41 → ER 23:41 → OVERFLOW 04-12 12:20 → WEST WING 04-12 18:12
PROVIDERS: ADMIT Nurse Practitioner Family; ATTEND Internal Medicine Geriatric Medicine
PROC: 02HV33Z Insertion of Infusion Device into Superior Vena Cava, Percutaneous Approach (ICD-10-PCS; principal; 2023-04-24)
PROC: B548ZZA Ultrasonography of Superior Vena Cava, Guidance (ICD-10-PCS; 2023-04-24)
DX: E11.69 Type 2 diabetes mellitus with other specified complication (principal); E87.20 Acidosis, unspecified; I13.0 Hypertensive heart and chronic kidney disease with heart failure and stage 1 through stage 4 chronic kidney disease, or unspecified chronic kidney disease; N39.0 Urinary tract infection, site not specified; M86.8X7 Other osteomyelitis, ankle and foot; E11.621 Type 2 diabetes mellitus with foot ulcer; N17.0 Acute kidney failure with tubular necrosis; L97.529 Non-pressure chronic ulcer of other part of left foot with unspecified severity; I50.9 Heart failure, unspecified; E87.5 Hyperkalemia; E11.22 Type 2 diabetes mellitus with diabetic chronic kidney disease; E78.2 Mixed hyperlipidemia; B95.62 Methicillin resistant Staphylococcus aureus infection as the cause of diseases classified elsewhere; S91.302A Unspecified open wound, left foot, initial encounter; S91.301A Unspecified open wound, right foot, initial encounter; X58.XXXA Exposure to other specified factors, initial encounter; Z60.2 Problems related to living alone; N18.32 Chronic kidney disease, stage 3b; L08.9 Local infection of the skin and subcutaneous tissue, unspecified; Z82.3 Family history of stroke; Z82.5 Family history of asthma and other chronic lower respiratory diseases; Z87.891 Personal history of nicotine dependence; Y93.89 Activity, other specified; Y92.89 Other specified places as the place of occurrence of the external cause; Y99.8 Other external cause status
CPT/HCPCS: 36415; 36569; 71045; 73620; 73718; 76775; 78582; 80048; 80053; 81001; 82550; 82570; 82962; 83036; 83605; 83735; 83880; 84156; 84300; 84484; 85007; 85025; 85027; 85379; 85610; 85652; 85730; 87040; 87077; 87081; 87086; 87186; 87205; 93005; 93970; 97110; 97116; 97163; 97530; G0378; J1815; J2543

== ENCOUNTER 2023-08-05 00:44 | Emergency (ER) | payer OTHER ==
[~2023-08-05] VITALS: Ht 175.3 cm; Wt 73.0 kg
[~2023-08-05 00:44] MED LIST changes: +ATOR40TA52 PO; -BUME2TAB5 PO; -HYDR1TAB97 PO; -ONDA-133 PO; -ONDA-144; -PRED-559 PO
[2023-08-05 02:00] VITALS: PULSE 88; RESP 10; TEMP 98.9; O2SAT 98
[2023-08-05 02:10] LABS: Basophils # (auto) 0.1 10 ^3/uL (0-0.2); Eosinophils # (auto) 0.5 10 ^3/uL (0-0.8); Eosinophils % (auto) 5.6 % (0.0-7.0); Hematocrit 40.9 % (41.0-53.0); Hemoglobin 13.4 g/dL (13.5-17.5); Lymphocytes # (auto) 3.2 10 ^3/uL (0.4-5.4); Lymphocytes % (auto) 37.3 % (10.0-50.0); Mean Corpuscular Hemoglobin 27.7 pg (28.0-32.0); Mean Corpuscular Hgb Conc. 32.8 g/dL (32.0-36.0); Mean Corpuscular Volume 84.6 fL (80.0-100.0); Monocytes # (auto) 0.5 10 ^3/uL (0-1.3); Monocytes % (auto) 5.8 % (0.0-12.0); Neutrophils # (auto) 4.4 10 ^3/uL (1.6-8.6); Neutrophils % (auto) 50.3 % (37.0-80.0); Nucleated Red Blood Cells % 0.1 %; Red Blood Cells 4.84 10^6/uL (4.5-5.90); Red Cell Distribution Width 15.3 % (11.8-14.3); White Blood Cell 8.7 10^3/uL (4.4-10.8)
[2023-08-05 02:25] LABS: Alanine Aminotransferase 23 U/L (7-40); Albumin 4.4 g/dL (3.2-4.8); Alkaline Phosphatase 233 U/L (46-116); Anion Gap 8 (5-15); Aspartate Aminotransferase 20 U/L (13-40); BUN/Creatinine Ratio 18.2 (10.0-20.0); Bilirubin, Total 0.6 mg/dL (0.2-1.0); Blood Urea Nitrogen 36 mg/dL (9-23); Calcium 9.3 mg/dL (8.7-10.4); Carbon Dioxide 27 mmol/L (20-30); Chloride 104 mmol/L (98-107); Glucose 196 mg/dL (74-106); Potassium 4.5 mmol/L (3.5-5.1); Sodium 139 mmol/L (136-145)
[2023-08-05 06:00] VITALS: BP 138/79; PULSE 102; RESP 11; O2SAT 94
== END 2023-08-05 13:49 | disposition home or self-care (01) ==
LOC: EDUNIT# 00:44 → EDBD 00:44 → ER 00:44
DX: F91.1 Conduct disorder, childhood-onset type (principal); R45.6 Violent behavior; R07.89 Other chest pain; I13.0 Hypertensive heart and chronic kidney disease with heart failure and stage 1 through stage 4 chronic kidney disease, or unspecified chronic kidney disease; E11.22 Type 2 diabetes mellitus with diabetic chronic kidney disease; N18.9 Chronic kidney disease, unspecified; I50.9 Heart failure, unspecified; E78.5 Hyperlipidemia, unspecified; Z79.4 Long term (current) use of insulin; Z79.899 Other long term (current) drug therapy
CPT/HCPCS: 36415; 70450; 71045; 80053; 83605; 83880; 84484; 85025

== ENCOUNTER 2024-07-30 23:59 | Inpatient (IN) | payer OTHER, MEDICAID ==
[~2024-07-30] VITALS: Ht 177.8 cm; Wt 75.8 kg
[~2024-07-30 23:59] MED LIST changes: -HYDR-4297 PO; +HYDR50TA47 PO; +LISI-275 PO; +METF-370 PO
--- NOTE | 2024-07-31 02:10 | ED.PDOC ---
History of Present Illness HPI Comments 69-year-old male with unknown medical history presents via EMS with confusion. EMS reports they found patient's standing [place] of a motel. He was confused and not following directions from them. They brought him in to the ER. Patient denies any fever chills nausea vomiting diarrhea dysuria or polyuria sick contacts. Patient denies any substance use. Chief Complaint: ALOC Time Seen by MD: 00:01 Primary Care Provider: ASHLEY Russell Notes: Nurses Notes Allergies: Coded Allergies: NO KNOWN ALLERGIES (Unverified , 05/26/18) Home Meds Active Scripts Lisinopril (Lisinopril) 5 Mg Tab, 5 MG PO DAILY, #30 TAB Prov:VILLA RAMOS MD 06/13/24 Metformin Hydrochloride (Metformin Hcl) 500 Mg Tab, 1 TAB PO BID, #60 TAB 3 Refills Prov:VILLA RAMOS MD 06/13/24 Lancets (Freestyle Lancets) Lancets Mis, % XX DAILY, #60 Prov:KOFI BARNES MD 06/09/22 Insulin Pen Needle (Bd Pen Needle/Maryann/Ultra) 32 Gx4mm Mis, GX4MM XX BID PRN, #60 Prov:KOFI BARNES MD 06/09/22 Reported Medications Atorvastatin Calcium (ATORVASTATIN CALCIUM) 40 Mg Tab, 1 TAB PO DAILY 04/12/23 Omeprazole (Omeprazole) 20 Mg Cap, 20 MG PO DAILY 06/21/17 Gabapentin (Gabapentin) 300 Mg Cap, 300 MG PO TID 06/21/17 Hydralazine Hcl (Hydralazine Hcl) 50 Mg Tab, 50 MG PO TID 06/21/17 Clonidine Hydrochloride (Clonidine Hcl) 0.2 Mg Tab, 0.2 MG PO Q8HR 06/21/17 Carvedilol (Carvedilol) 12.5 Mg Tab, 12.5 MG PO BID 06/21/17 Information Source: Patient, Emergency Med Personnel Mode of Arrival: EMS Past Medical History PAST MEDICAL HISTORY: CHF, CKF, DM, High Lipids, HTN Surgical History: Pt Confused Family History Family History: Pt Confused Social History Smoker: Pt Confused Alcohol: Pt Confused Drugs: Pt Confused Lives In: Homeless All Other Systems: Deferred Physical Exam General Appearance: Other (Chronically ill appearing) HEENT: Normal ENT Inspection, Pharynx Normal, TMs Normal Neck: Full Range of Motion, Non-Tender, Normal, Normal Inspection Respiratory: Other (Tachypnea, crackles bilaterally) Cardiovascular: Tachycardia Breast Exam: Deferred Gastrointestinal: No Organomegaly, Non Tender, No Pulsatile Mass, Normal Bowel Sounds, Soft Genitalia: Deferred Pelvic: Deferred Rectal: Deferred Extremities: No calf tenderness, Normal capillary refill, Normal inspection, Normal range of motion, Non-tender, No pedal edema Neurologic: Disoriented, No Motor Deficits Cerebellar Function: NOT DONE Reflexes: NOT DONE Skin: Dry, Normal Color, Warm Lymphatic: No Adenopathy Was a procedure done? Was a procedure done?: No Differential Dx Considerations may include: Electrolyte abnormality, infectious process, intoxication X-Ray, Labs, Meds, VS Vital Signs Date Time Temp Pulse Resp B/P (MAP) Pulse Ox O2 Delivery O2 Flow Rate FiO2 07/31/24 02:50 88 18 98 Room Air* 0 21 07/31/24 00:31 96 07/30/24 23:59 98.4 104 13 152/92 (112) 98 Lab Test 07/31/24 05:05 07/31/24 03:12 07/31/24 03:00 Range/Units White Blood Count 7.2 4.4-10.8 10^3/uL Red Blood Count 3.89 L 4.5-5.90 10^6/uL Hemoglobin 10.9 L 13.5-17.5 g/dL Hematocrit 33.2 L 41.0-53.0 % Mean Corpuscular Volume 85.4 80.0-100.0 fL Mean Corpuscular Hemoglobin 28.0 28.0-32.0 pg Mean Corpuscular Hemoglobin Concent 32.8 32.0-36.0 g/dL Red Cell Distribution Width 15.2 H 11.8-14.3 % Platelet Count 369 140-450 10^3/uL Mean Platelet Volume 7.7 6.9-10.8 fL Neutrophils (%) (Auto) 55.2 37.0-80.0 % Lymphocytes (%) (Auto) 31.3 10.0-50.0 % Monocytes (%) (Auto) 4.6 0.0-12.0 % Eosinophils (%) (Auto) 7.4 H 0.0-7.0 % Basophils (%) (Auto) 1.5 0.0-2.0 % Neutrophils # (Auto) 4.0 1.6-8.6 10 ^3/uL Lymphocytes # (Auto) 2.3 0.4-5.4 10 ^3/uL Monocytes # (Auto) 0.3 0-1.3 10 ^3/uL Eosinophils # (Auto) 0.5 0-0.8 10 ^3/uL Basophils # (Auto) 0.1 0-0.2 10 ^3/uL Nucleated Red Blood Cells 0.0 % Sodium Level Pending Potassium Level Pending Chloride Level Pending Carbon Dioxide Level Pending Anion Gap Pending Blood Urea Nitrogen Pending Creatinine Pending Glomerular Filtration Rate Calc Pending BUN/Creatinine Ratio Pending Serum Glucose Pending Calcium Level Pending Total Bilirubin Pending Aspartate Amino Transferase (AST) Pending Alanine Aminotransferase (ALT) Pending Alkaline Phosphatase Pending Troponin I High Sensitivity Pending B-Type Natriuretic Peptide Pending Total Protein Pending Albumin Pending Plasma/Serum Blood Alcohol Pending Lactic Acid Level 0.9 0.4-2.0 mmol/L Salicylates Level < 3.0 -30 mg/dL Acetaminophen Level < 2.0 L 10.0-20.0 UG/ML Urine Color Colorless Yellow Urine Clarity Ex.turbid Clear Urine pH 6.0 5.0-9.0 Urine Specific [place] 1.009 1.001-1.035 Urine Protein 2+ H Negative Urine Ketones Negative Negative Urine Blood 1+ H Negative /uL Urine Nitrite Negative Negative Urine Bilirubin Negative Negative Urine Urobilinogen Normal Negative mg/dL Urine Leukocyte Esterase 3+ Negative /uL Urine RBC 19 0 - 3 /hpf Urine WBC 1368 0 - 3 /hpf Urine WBC Clumps Present None Seen /hpf Urine Squamous Epithelial Cells None seen <5 /hpf Urine Bacteria Few H None Seen /hpf Urine Glucose 3+ H Normal mg/dL Urine Opiates Screen Neg NEGATIVE Urine Fentanyl Screen Neg NEGATIVE Urine Barbiturates Screen Neg NEGATIVE Urine Phencyclidine Screen Neg NEGATIVE Urine Amphetamines Screen Pos NEGATIVE Urine Benzodiazepines Screen Neg NEGATIVE Urine Cocaine Screen Neg NEGATIVE Urine Cannabinoids Screen Neg NEGATIVE Time of 1ST Reevaluation: 05:44 Reevaluation 1ST: Unchanged Patient Education/Counseling: Diagnosis, Treatment Family Education/Counseling: No Family Present Departure 1 Departure Time of Disposition: 05:45 (Patient with altered mental status concerning for metabolic encephalopathy. I ordered reviewed patient's labs including a CBC and BNP and troponin. Urine appears infected. We will admit patient for further workup) Impression: Primary Impression: Metabolic encephalopathy Additional Impressions: UTI (urinary tract infection) Qualified Codes: N30.01 - Acute cystitis with hematuria Altered mental status Qualified Codes: R41.0 - Disorientation, unspecified Pneumonia Qualified Codes: J18.9 - Pneumonia, unspecified organism Disposition: ADMITTED INPATIENT Admit to: Med Surg Condition: Serious Critical Care Note Critical Care Time?: Yes Critical care comment: Altered mental status Authorized and Performed by: Dominic Worthington MD Total critical care time: Approximately 32 minutes Due to a high probability of clinically significant, life threatening deterioration, the patient required my highest level of preparedness to intervene emergently and I personally spent this critical care time directly and personally managing the patient. This critical care time included obtaining a history; examining the patient; pulse oximetry; ordering and review of studies; arranging urgent treatment with development of a management plan; evaluation of patient's response to treatment; frequent reassessment; and, discussions with other providers. This critical care time was performed to assess and manage the high probability of imminent, life-threatening deterioration that could result in multi-organ failure. It was exclusive of separately billable procedures and treating other patients and teaching time. Please see my other sections and the rest of the note for further information on patient assessment and treatment. Stability Stability form required: DOMINIC Davis MD Jul 31, 2024 02:10
[2024-07-31 02:50] VITALS: PULSE 88; RESP 18; O2SAT 98
[2024-07-31 03:16] LABS: Urine Bacteria FEW /hpf (None Seen); Urine Blood 1+ /uL (Negative); Urine Clarity Ex.Turbid (Clear); Urine Color Colorless (Yellow); Urine Protein, UAD 2+ (Negative); Urine Specific Gravity 1.009 (1.001-1.035); Urine Urobilinogen Normal (Negative); Urine WBC 1368 /hpf (0 - 3); Urine WBC Clumps PRESENT /hpf (None Seen)
[2024-07-31 03:29] LABS: Amphetamine Screen, Urine Pos (NEGATIVE); Barbiturate Scree,Urine Neg (NEGATIVE); Benzodiazephine Screen, Urine Neg (NEGATIVE); Cannabinoid Screen, Urine Neg (NEGATIVE); Opiate Scree,Urine Neg (NEGATIVE); Phencyclidine Screen, Urine Neg (NEGATIVE)
--- NOTE | 2024-07-31 03:34 | DVH ---
Examination: CXRP Clinical Indication: ams Comparison: None. Technique: Frontal radiograph of the chest was obtained. Findings: Borderline cardiomegaly. Increased left retrocardiac opacity probable left lower lobe infiltrates. 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 No evidence of pleural effusi on or pneumothorax. No acute osseous abnormality is seen. Impression: 1. Borderline cardiomegaly. 2. Increased left retrocardiac opacity probable left lower lobe infiltrates. 3. 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 4. No evidence of pleural effusion or pneumothorax. Electronically Signed 07/31/2024 03:33 Tahira Andrews
--- NOTE | 2024-07-31 03:54 | DVH ---
Examination: HWOCT CLINICAL INDICATION: ams COMPARISON: None. CONTRAST USED: None. TECHNIQUE: The examination was performed obtaining 5 mm slices without contrast. CT scan done accor ding to ALARA (As Low as Reasonably Achievable). Multiplanar reconstructions were obtained. FINDINGS: SUPRATENTORIAL BRAIN: Cerebral Hemispheres: Mild age-related degenerative change with prominent sulci and basilar cisterns . Diffuse hypoattenuation in the deep periventricular white matter and in the ortega radiata sequela of chronic microvascular ischemic disease. There is no midline shift or mass effect, intra or extra-axial fluid collections or hemorrhage. Basal Ganglia: No abnormal areas of altered attenuation within the basal ganglia. POSTERIOR FOSSA: The brainstem is normal and the visualized cerebellar hemispheres are unremarkable. VENTRICULAR SYSTEM: The ventricular system is normal in size. There is no evidence of hydrocephalus or transependymal flow of cerebrospinal fluid. SKULL BASE AND PARASELLAR REGION: The skull base is normal with no parasellar masses or abnormalitie s identified. CALVARIUM AND SCALP REGION: No abnormality is seen. PARANASAL SINUSES: Mild S-shaped deviation of the nasal septum with 3 mm septal spur directed toward s left. No significant inflammatory changes are identified in the paranasal sinuses. IMPRESSION: 1. Mild age-related degenerative change with prominent sulci and basilar cisterns. Diffuse hypoatte nuation in the deep periventricular white matter and in the ortega radiata sequela of chronic microva scular ischemic disease. 2. No acute intracranial abnormality or focal parenchymal lesion. 3. Early changes of stroke may not be detected on CT scan, If strong clinical suspicion then suggest MRI with diffusion-weighted imaging. Electronically Signed 07/31/2024 03:53 Tahira Andrews
[2024-07-31] MEDS: AZITHROMYCIN 250 MG TAB PO ONE (04:00)
[2024-07-31 04:17] LABS: Cocaine Screen, Urine Neg (NEGATIVE)
[2024-07-31 04:20] LABS: Acetaminophen < 2.0 UG/ML (10.0-20.0); Salicylate < 3.0 mg/dL (-30)
[2024-07-31 05:25] LABS: Basophils # (auto) 0.1 10 ^3/uL (0-0.2); Basophils % (auto) 1.5 % (0.0-2.0); Eosinophils # (auto) 0.5 10 ^3/uL (0-0.8); Eosinophils % (auto) 7.4 % (0.0-7.0); Hematocrit 33.2 % (41.0-53.0); Hemoglobin 10.9 g/dL (13.5-17.5); Lymphocytes # (auto) 2.3 10 ^3/uL (0.4-5.4); Lymphocytes % (auto) 31.3 % (10.0-50.0); Mean Corpuscular Hgb Conc. 32.8 g/dL (32.0-36.0); Mean Corpuscular Volume 85.4 fL (80.0-100.0); Monocytes # (auto) 0.3 10 ^3/uL (0-1.3); Monocytes % (auto) 4.6 % (0.0-12.0); Neutrophils % (auto) 55.2 % (37.0-80.0); Platelet Count (auto) 369 10^3/uL (140-450); Red Blood Cells 3.89 10^6/uL (4.5-5.90); Red Cell Distribution Width 15.2 % (11.8-14.3); White Blood Cell 7.2 10^3/uL (4.4-10.8)
[2024-07-31 05:42] LABS: Alanine Aminotransferase 16 U/L (7-40); Albumin 3.6 g/dL (3.2-4.8); Anion Gap 7 (5-15); Aspartate Aminotransferase 14 U/L (13-40); Bilirubin, Total 0.5 mg/dL (0.2-1.0); Blood Alcohol < 3.0 mg/dL (<10); Calcium 8.9 mg/dL (8.7-10.4); Carbon Dioxide 23 mmol/L (20-31); Potassium 4.7 mmol/L (3.5-5.1); Sodium 141 mmol/L (136-145)
[2024-07-31 06:11] LABS: Alkaline Phosphatase 208 U/L (46-116); Blood Urea Nitrogen 39 mg/dL (9-23); Chloride 111 mmol/L (98-107); Glucose 210 mg/dL (74-106)
[2024-07-31] MEDS: VANCOMYCIN 1GM/250ML KIT 200 ML IV ONE (06:24)
[2024-07-31] MEDS ORDERED: MORPHINE SULFATE INJ 2 MG/ml SYRG IV PRN (06:30)
[2024-07-31] MEDS ORDERED: DEXTROSE (50%) 50ML SYRG IV PRN (06:30)
[2024-07-31] MEDS ORDERED: DOCUSATE SOD 100 MG CAP PO PRN (06:30)
[2024-07-31] MEDS ORDERED: ACETAMINOPHEN 325 MG TAB PO PRN (06:30)
[2024-07-31] MEDS ORDERED: NITROGLYCERIN 0.4 MG SL TAB SL PRN (06:30)
[2024-07-31] MEDS ORDERED: ONDANSETRON HCL 4 MG/2 ML VIAL IV PRN (06:30)
--- NOTE | 2024-07-31 06:32 | DVHHP2 ---
History of Present Illness Reason for Visit: Altered mental status History of Present Illness The patient is a 69-year-old male with past medical history of DM, hypertension, hyperlipidemia, CHF, and chronic kidney disease who presented to [facility] ED for evaluation of altered level of consciousness associated with shortness of breaths. As reported by EMS, patient was found standing outside of [place] confused and not following directions. Patient was brought to facility ED. patient was seen and evaluated in the ED, laboratory data shows WBC 7.2, hemoglobin 10.9, hematocrit 33.2, platelets 369, sodium 141, potassium 4.7, BUN 39, creatinine 1.86, glucose 210, BNP 62.89, troponin result pending, blood pressure 152/92, heart rate 88, temperature 98.4 F, O2 saturation 98% on oxygen. Urinalysis positive for urinary tract infection. Chest x-ray revealing borderline cardiomegaly, increased left retrocardiac opacities probable left lower lobe infiltrates. Patient was started on IV antibiotic regimen azithromycin, IV Rocephin, please see medication orders section in the computer. On my assessment, patient remains altered, no diaphoresis, no palpitation, no shortness of breaths, no diarrhea, no nausea, no vomiting, no fever, no chills. Patient was admitted for further evaluation and medical management. Past Medical History CHF, CKF, DM, High Lipids, HTN Past Surgical History Unobtainable Family History Reviewed, noncontributory to the management of this case. Past Social History The patient lives at home, denies smoking, alcohol or illicit drugs abuse. Review of Systems Constitutional: Yes: Weakness; No: Fever, Chills, Sweats, Malaise, Other Eyes: No: Pain, Vision change, Conjunctivae inflammation, Eyelid inflammation, Other, Redness ENT: No: Ear pain, Ear discharge, Nose pain, Nose discharge, Nose congestion, Mouth pain, Mouth swelling, Throat pain, Throat swelling, Other Respiratory: Shortness of breath; No: Cough, Dry, SOB with excertion, Wheezing, Hemoptysis, Pleuritic Pain, Sputum, Wheezing, Other Cardiovascular: No: Chest Pain, Palpitations, Orthopnea, Paroxysmal Noc. Dyspnea, Edema, Lt Headedness, Other Gastrointestinal: No: Nausea, Vomiting, Abdominal Pain, Diarrhea, Constipation, Melena, Hematochezia, Other Genitourinary: No Dysuria, No Frequency, No Incontinence, No Hematuria, No Retention, No Other Musculoskeletal: No: other, neck pain, shoulder pain, arm pain, back pain, hand pain, leg pain, foot pain Skin: No: Rash, Lesions, Jaundice, Bruising, Other Neurological: Other (Altered level of consciousness); No: Weakness, Numbness, Incoordination, Change in speech, Confusion, Seizures Allergies: Coded Allergies: NO KNOWN ALLERGIES (Unverified , 05/26/18) Exam Vital Signs Vital Signs Date Time Temp Pulse Resp B/P (MAP) Pulse Ox O2 Delivery O2 Flow Rate FiO2 07/31/24 06:22 99 14 147/89 (108) 94 07/31/24 02:50 Room Air* 0 21 07/30/24 23:59 98.4 General Appearance: Alert, Cooperative, No acute distress, Other (Oriented x2) HEENT: Atraumatic, PERRLA, EOMI, Mucous membr. moist/pink Respiratory: Normal air movement, Other (Diminished breath sounds) Cardiovascular: Regular rate, Normal S1, Normal S2, No murmurs Abdominal: Normal bowel sounds, Soft, No tenderness, No hepatospenomegaly, No masses Extremities: No clubbing, No cyanosis, No edema, Normal pulses, No tendern ess/swelling Skin: No rashes, No breakdown, No significant lesion Neuro: Normal speech, Normal tone, Sensation intact, Cranial nerves 3-12 NL, Reflexes 2+, Other (Generalized weakness) Psych/Mental Status: Mental status NL, Mood NL Labs/Xrays Labs Test 07/31/24 06:01 07/31/24 05:05 07/31/24 03:12 07/31/24 03:00 Range/Units White Blood Count 7.2 4.4-10.8 10^3/uL Red Blood Count 3.89 L 4.5-5.90 10^6/uL Hemoglobin 10.9 L 13.5-17.5 g/dL Hematocrit 33.2 L 41.0-53.0 % Mean Corpuscular Volume 85.4 80.0-100.0 fL Mean Corpuscular Hemoglobin 28.0 28.0-32.0 pg Mean Corpuscular Hemoglobin Concent 32.8 32.0-36.0 g/dL Red Cell Distribution Width 15.2 H 11.8-14.3 % Platelet Count 369 140-450 10^3/uL Mean Platelet Volume 7.7 6.9-10.8 fL Neutrophils (%) (Auto) 55.2 37.0-80.0 % Lymphocytes (%) (Auto) 31.3 10.0-50.0 % Monocytes (%) (Auto) 4.6 0.0-12.0 % Eosinophils (%) (Auto) 7.4 H 0.0-7.0 % Basophils (%) (Auto) 1.5 0.0-2.0 % Neutrophils # (Auto) 4.0 1.6-8.6 10 ^3/uL Lymphocytes # (Auto) 2.3 0.4-5.4 10 ^3/uL Monocytes # (Auto) 0.3 0-1.3 10 ^3/uL Eosinophils # (Auto) 0.5 0-0.8 10 ^3/uL Basophils # (Auto) 0.1 0-0.2 10 ^3/uL Nucleated Red Blood Cells 0.0 % Sodium Level 141 136-145 mmol/L Potassium Level 4.7 3.5-5.1 mmol/L Chloride Level 111 H 98-107 mmol/L Carbon Dioxide Level 23 20-31 mmol/L Anion Gap 7 5-15 Blood Urea Nitrogen 39 H 9-23 mg/dL Creatinine 1.86 H 0.700-1.30 mg/dL Glomerular Filtration Rate Calc 39 >90 mL/min BUN/Creatinine Ratio 21.0 H 10.0-20.0 Serum Glucose 210 H 74-106 mg/dL Calcium Level 8.9 8.7-10.4 mg/dL Total Bilirubin 0.5 0.2-1.0 mg/dL Aspartate Amino Transferase (AST) 14 13-40 U/L Alanine Aminotransferase (ALT) 16 7-40 U/L Alkaline Phosphatase 208 H 46-116 U/L B-Type Natriuretic Peptide 62.89 0-100 pg/mL Total Protein 7.0 5.7-8.2 g/dL Albumin 3.6 3.2-4.8 g/dL Plasma/Serum Blood Alcohol < 3.0 <10 mg/dL Lactic Acid Level 0.9 0.4-2.0 mmol/L Salicylates Level < 3.0 -30 mg/dL Acetaminophen Level < 2.0 L 10.0-20.0 UG/ML Urine Color Colorless Yellow Urine Clarity Ex.turbid Clear Urine pH 6.0 5.0-9.0 Urine Specific [place] 1.009 1.001-1.035 Urine Protein 2+ H Negative Urine Ketones Negative Negative Urine Blood 1+ H Negative /uL Urine Nitrite Negative Negative Urine Bilirubin Negative Negative Urine Urobilinogen Normal Negative mg/dL Urine Leukocyte Esterase 3+ Negative /uL Urine RBC 19 0 - 3 /hpf Urine WBC 1368 0 - 3 /hpf Urine WBC Clumps Present None Seen /hpf Urine Squamous Epithelial Cells None seen <5 /hpf Urine Bacteria Few H None Seen /hpf Urine Glucose 3+ H Normal mg/dL Urine Opiates Screen Neg NEGATIVE Urine Fentanyl Screen Neg NEGATIVE Urine Barbiturates Screen Neg NEGATIVE Urine Phencyclidine Screen Neg NEGATIVE Urine Amphetamines Screen Pos NEGATIVE Urine Benzodiazepines Screen Neg NEGATIVE Urine Cocaine Screen Neg NEGATIVE Urine Cannabinoids Screen Neg NEGATIVE PATIENT: VIKTORIYA CURRY IDCCT: [id number] UNIT: [id number] : 1955 LOC: ER ROOM / BED: / AGE / SEX: 69 / M ADM STATUS: REG ER SERVICE ORDERING PHYSICIAN: DOMINIC SMITH MD PROCEDURE(s): HWOCT - HEAD WITHOUT CONTRAST REASON: ams ORDER NUMBER(s): [id number], ACCESSION NUMBER(s): [id number] Examination: HWOCT CLINICAL INDICATION: ams COMPARISON: None. CONTRAST USED: None. TECHNIQUE: The examination was performed obtaining 5 mm slices without contrast. CT scan done according to ALARA (As Low as Reasonably Achievable). Multiplanar reconstructions were obtained. FINDINGS: SUPRATENTORIAL BRAIN: Cerebral Hemispheres: Mild age-related degenerative change with prominent sulci and basilar cisterns. Diffuse hypoattenuation in the deep periventricular white matter and in the ortega radiata sequela of chronic microvascular ischemic disease. There is no midline shift or mass effect, intra or extra-axial fluid collections or hemorrhage. Basal Ganglia: No abnormal areas of altered attenuation within the basal ganglia. POSTERIOR FOSSA: The brainstem is normal and the visualized cerebellar hemispheres are unremarkable. VENTRICULAR SYSTEM: The ventricular system is normal in size. There is no evidence of hydrocephalus or transependymal flow of cerebrospinal fluid. SKULL BASE AND PARASELLAR REGION: The skull base is normal with no parasellar masses or abnormalities identified. CALVARIUM AND SCALP REGION: No abnormality is seen. PARANASAL SINUSES: Mild S-shaped deviation of the nasal septum with 3 mm septal spur directed towards left. No significant inflammatory changes are identified in the paranasal sinuses. IMPRESSION: 1. Mild age-related degenerative change with prominent sulci and basilar cisterns. Diffuse hypoattenuation in the deep periventricular white matter and in the ortega radiata sequela of chronic microvascular ischemic disease. 2. No acute intracranial abnormality or focal parenchymal lesion. 3. Early changes of stroke may not be detected on CT scan, If strong clinical suspicion then suggest MRI with diffusion-weighted imaging. ORDERING PHYSICIAN: DOMINIC SMITH MD PROCEDURE(s): CXRP - CHEST PORTABLE REASON: ams ORDER NUMBER(s): [id number], ACCESSION NUMBER(s): [id number] Examination: CXRP Clinical Indication: ams Comparison: None. Technique: Frontal radiograph of the chest was obtained. Findings: Borderline cardiomegaly. Increased left retrocardiac opacity probable left lower lobe infiltrates. 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 No evidence of pleural effusion or pneumothorax. No acute osseous abnormality is seen. Impression: 1. Borderline cardiomegaly. 2. Increased left retrocardiac opacity probable left lower lobe infiltrates. 3. 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 4. No evidence of pleural effusion or pneumothorax. Assessment/Plan Assessment/Plan Metabolic encephalopathy UTI (urinary tract infection) Acute cystitis with hematuria Altered mental status Generalized weakness Acute on chronic renal failure Disorientation, unspecified Pneumonia, unspecified organism Diabetes mellitus with hyperglycemia Plan 1. Admit to telemetry unit 2. Breathing treatment 3. Pain control management 4. IV antibiotic management 5. Management of fluids and electrolytes 6. Consultation for hospitalist/nephrology 7. Diagnostic test chest x-ray 8. DVT prophylaxis on SCDs 9. Repeat labs CBC, CMP in a.m. 10. Home medication reviewed and reconciled 11. Continue with current medical management 12. Treatment plan discussed with patient and RN. Patient verbalized understanding. Plan discussed with: Patient, Other (RN) My Orders Orders - STEVEN ORTA DNP Procedure Category Date Status Time Azithromycin 500mg/ PHA 07/31/24 Logged 250ml (Zithromax 50 10:00 Urine Bacterial CESAR 07/31/24 Logged Culture 06:23 *Dr. [facility] CONS 07/31/24 Transmitted -[place] 06:23 Ceftriaxone 1gm/50ml PHA 07/31/24 Logged D5w (Rocephin) 09:00 Consistent DIET 07/31/24 Transmitted Carb(Ccho)Diabetes Breakfast Glucose Blood PHA 07/31/24 Logged (Accu-Chek Comfort 07:00 Insulin R (Human) PHA 07/31/24 Logged (Insulin R) 22:00 Insulin R (Human) PHA 07/31/24 Logged (Insulin R) 07:00 Dextrose 50% Syringe PHA 07/31/24 Logged 06:30 Admit ADMIT 07/31/24 Transmitted 06:23 Allergies COLLIN 07/31/24 In Process 06:23 Code Status CODE 07/31/24 Transmitted 06:23 Sodium Chloride Lock PHA 07/31/24 Logged (Saline Lock Ns) 14:00 Oxygen Per Hour RT 07/31/24 Transmitted 06:23 Hydrocodone-Acet PHA 07/31/24 Logged 5/325mg Tab ([place] 06:30 Ondansetron Hcl PHA 07/31/24 Logged (Zofran) 06:30 Docusate Sodium [facility] 07/31/24 Logged Capsule (Colace 06:30 Complete Blood Count LAB 08/01/24 Verified 04:00 Comprehensive LAB 08/01/24 Verified Metabolic Panel 04:00 Condition: Serious COLLIN 07/31/24 In Process 06:23 Acetaminophen Tablet [facility] 07/31/24 Logged (Tylenol Tablet) 06:30 Bedrest With Bathroom COLLIN 07/31/24 In Process Privileg 06:23 Sequential [facility] 07/31/24 In Process Compression Device Nitroglycerin [facility] 07/31/24 Logged Sublingual (Ntrostat 06:30 Morphine Sulfate [facility] 07/31/24 Logged Injection 06:30 Notify Of Changes [facility] 07/31/24 In Process From Base 06:23 Leasing Property Manager For [facility] 07/31/24 In Process 24 Hours 06:23 Emergency Dysrhythmia [facility] 07/31/24 In Process Protocol 06:23 Rhythm Strips Once [facility] 07/31/24 In Process Every Shift 06:23 Oxygen By Nasal RT 07/31/24 Transmitted Cannula 06:23 Hydralazine Injection PHA 07/31/24 Logged (Apresoline Inject 06:30 Atorvastatin (Lipitor) PHA 07/31/24 Transmitted 22:00 Famotidine Injection PHA 07/31/24 Verified (Pepcid Injection) 10:00 Problem List: (1) Altered mental status (2) UTI (urinary tract infection) (3) Metabolic encephalopathy (4) Disorientation, unspecified (5) Generalized weakness (6) Pneumonia, unspecified organism (7) Acute on chronic renal failure (8) Acute cystitis with hematuria (9) Diabetes mellitus with hyperglycemia Date of Service: Jul 31, 2024 Billing Provider: STEVEN ORTA DNP Common Visit Codes: [id number]-[id number] INP/OBS CARE (HIGH) STEVEN ORTA DNP Jul 31, 2024 06:32
[2024-07-31] MEDS: InsuLIN REG 1unit/0.01ml Soln (100units/ml) SC SCH ×2 (08:27→22:00)
[2024-07-31] MEDS: HYDROcodone-ACET 5/325MG TAB PO PRN (08:30)
[2024-07-31] MEDS: FAMOTIDINE (10MG/ML) 2ML VL IV SCH (08:30)
[2024-07-31] MEDS: ACCU-CHEK COMFORT CURVE STRIP VI SCH (08:31)
[2024-07-31] MEDS: CEFEPIME 2GM/50ML NS 50 ML IV ONE (09:31)
[2024-07-31] MEDS: SODIUM CHLOR 0.9% PF (SALINE LOCK) 10ML VIAL/SYR IV SCH (14:17)
[2024-07-31 17:55] VITALS: PULSE 106; RESP 25; O2SAT 93
[2024-07-31 19:30] VITALS: PULSE 79; RESP 22; O2SAT 95
[2024-07-31 20:32] LABS: Protein, Urine 123.2 mg/dL (1-14)
[2024-07-31 20:35] LABS: Creatinine, Urine 33.01 mg/dL (30.0-125.0)
[2024-07-31] MEDS: ATORVASTATIN 20 MG TAB PO SCH (22:10)
[2024-08-01 05:57] LABS: Basophils # (auto) 0 10 ^3/uL (0-0.2); Basophils % (auto) 0.4 % (0.0-2.0); Eosinophils # (auto) 0.2 10 ^3/uL (0-0.8); Eosinophils % (auto) 2.7 % (0.0-7.0); Hematocrit 34.2 % (41.0-53.0); Hemoglobin 11.5 g/dL (13.5-17.5); Lymphocytes % (auto) 11.5 % (10.0-50.0); Mean Corpuscular Hemoglobin 28.7 pg (28.0-32.0); Mean Corpuscular Hgb Conc. 33.5 g/dL (32.0-36.0); Mean Corpuscular Volume 85.6 fL (80.0-100.0); Monocytes # (auto) 0.5 10 ^3/uL (0-1.3); Monocytes % (auto) 5.2 % (0.0-12.0); Neutrophils % (auto) 80.2 % (37.0-80.0); Platelet Count (auto) 376 10^3/uL (140-450); Red Blood Cells 3.99 10^6/uL (4.5-5.90); Red Cell Distribution Width 15.4 % (11.8-14.3); White Blood Cell 8.8 10^3/uL (4.4-10.8)
[2024-08-01 06:02] LABS: Alanine Aminotransferase 14 U/L (7-40); Albumin 3.4 g/dL (3.2-4.8); Anion Gap 9 (5-15); BUN/Creatinine Ratio 19.1 (10.0-20.0); Bilirubin, Total 1.1 mg/dL (0.2-1.0); Calcium 8.9 mg/dL (8.7-10.4); Carbon Dioxide 22 mmol/L (20-31); Potassium 4.7 mmol/L (3.5-5.1); Sodium 140 mmol/L (136-145); Total Protein 6.5 g/dL (5.7-8.2)
[2024-08-01 06:31] LABS: Alkaline Phosphatase 180 U/L (46-116); Aspartate Aminotransferase 12 U/L (13-40); Blood Urea Nitrogen 37 mg/dL (9-23); Chloride 109 mmol/L (98-107); Glucose 114 mg/dL (74-106)
[2024-08-01 09:00] VITALS: PULSE 93; RESP 12; O2SAT 95
[2024-08-01] MEDS: cefTRIAXone 1GM/50ML D5W 50 ML IV SCH (09:06)
--- NOTE | 2024-08-01 10:23 | DVHPN2 ---
Subjective 69-year-old male with a history of diabetes, hypertension, CHF, dyslipidemia, chronic kidney disease, came reportedly because of altered level of consciousness. He was found standing outside a motel confused and not following directions He was brought to the hospital and was found to have left lower lobe pneumonia and UTI The patient's home He does not know where he lives Changes from previous H/P or p: Changes Eyes: No Pain, No Vision change, No Conjunctivae inflammation, No Eyelid inflammation, No Other, No Redness ENT: No Ear pain, No Ear discharge, No Nose pain, No Nose discharge, No Nose congestion, No Mouth pain, No Mouth swelling, No Throat pain, No Throat swelling, No Other Cardiovascular: No Chest Pain, No Palpitations, No Orthopnea, No Paroxysmal Noc. Dyspnea, No Edema, No Lt Headedness, No Other Respiratory: No Cough, No Dry; Shortness of breath; No SOB with excertion, No Wheezing, No Hemoptysis, No Pleuritic Pain, No Sputum, No Other Gastrointestinal: No Nausea, No Vomiting, No Abdominal Pain, No Diarrhea, No Constipation, No Melena, No Hematochezia, No Other Genitourinary: No Dysuria, No Frequency, No Incontinence, No Hematuria, No Retention, No Other Musculoskeletal: No other, No neck pain, No shoulder pain, No arm pain, No back pain, No hand pain, No leg pain, No foot pain Skin: No Rash, No Lesions, No Jaundice, No Bruising, No Other Objective Vitals Vital Signs Date Time Temp Pulse Resp B/P (MAP) Pulse Ox O2 Delivery O2 Flow Rate FiO2 08/01/24 09:00 93 12 95 Room Air* 0 21 08/01/24 08:00 127/78 (94) 07/31/24 22:50 98.4 98.4 Intake/Output Intake and Output 08/01/24 07:00 Intake Total 250 ml Balance 250 ml Intake IV Total 250 ml General Appearance: Alert, Oriented X3 Lungs: Clear to auscultation, Normal air movement Cardiovascular: Regular rate, Normal S1, Normal S2 Abdomen: Normal bowel sounds, Soft, No tenderness Extremities: No edema Medications Current Medications Medications Dose Ordered Sig/Gu[place]upe Route Start Time Stop Time Status Last Admin Dose Admin Azithromycin 250 ml @ 125 mls/hr DAILY IV 08/01/24 10:00 Ceftriaxone Sodium 50 ml @ 100 mls/hr DAILY@ IV 08/01/24 09:00 08/01/24 09:06 100 MLS/HR Diagnostic Test (Pha) 1 strip ACHS 07/31/24 07:00 08/01/24 06:43 1 STRIP Insulin Human Regular HS SC 07/31/24 22:00 Insulin Human Regular AC SC 07/31/24 07:00 07/31/24 10:46 3 UNITS Dextrose 50 ml UD PRN IV 07/31/24 06:30 Sodium Chloride 10 ml Q8HR IV 07/31/24 14:00 08/01/24 06:21 10 ML Acetaminophen/ Hydrocodone Bitart 1 tab Q4HP PRN PO 07/31/24 06:30 07/31/24 08:30 1 TAB Ondansetron HCl 4 mg Q4HP PRN IV 07/31/24 06:30 Docusate Sodium 100 mg BIDPRN PRN PO 07/31/24 06:30 Acetaminophen 650 mg Q6HP PRN PO 07/31/24 06:30 Nitroglycerin 0.4 mg Q5MINP PRN SL 07/31/24 06:30 Morphine Sulfate 2 mg Q30M PRN IV 07/31/24 06:30 Hydralazine HCl 10 mg Q6HP PRN IV 07/31/24 06:30 Atorvastatin Calcium 20 mg HS PO 07/31/24 22:00 07/31/24 22:10 20 MG Famotidine 20 mg DAILY IV 07/31/24 10:00 07/31/24 08:30 20 MG Laboratory Results Laboratory Tests 08/01/24 05:06 Chemistry Test 08/01/24 05:06 Albumin 3.4 g/dL (3.2-4.8) Calcium Level 8.9 mg/dL (8.7-10.4) Total Protein 6.5 g/dL (5.7-8.2) LFT Test 08/01/24 05:06 Alanine Aminotransferase (ALT) 14 U/L (7-40) Alkaline Phosphatase 180 U/L (46-116) H Aspartate Amino Transferase (AST) 12 U/L (13-40) L Total Bilirubin 1.1 mg/dL (0.2-1.0) H Urinalysis Test 07/31/24 03:00 Urine Color Colorless (Yellow) Urine Clarity Ex.turbid (Clear) Urine pH 6.0 (5.0-9.0) Urine Specific [place] 1.009 (1.001-1.035) Urine Protein 2+ (Negative) H Urine Ketones Negative (Negative) Urine Blood 1+ /uL (Negative) H Urine Nitrite Negative (Negative) Urine Bilirubin Negative (Negative) Urine Urobilinogen Normal mg/dL (Negative) Urine Leukocyte Esterase 3+ /uL (Negative) Urine RBC 19 /hpf (0 - 3) Urine WBC 1368 /hpf (0 - 3) Urine WBC Clumps Present /hpf (None Seen) Urine Squamous Epithelial Cells None seen /hpf (<5) Urine Bacteria Few /hpf (None Seen) H Urine Creatinine 33.01 mg/dL (30.0-125.0) Urine Sodium 110 mmol/L (40-220) Urine Glucose 3+ mg/dL (Normal) H Urine Total Protein 123.2 mg/dL (1-14) H Assessment/Plan Assessment/Plan Metabolic encephalopathy due to pneumonia and UTI UTI Left lower lobe Pneumonia Homeless Chronic kidney disease Dyslipidemia History of heart failure Hypertension Type 2 diabetes Plan IV antibiotics Rocephin and Zithromax Physical therapy evaluation Nephrology consult Urine culture Continue telemetry Downgrade to med surge Full code formula room worker consult for discharge planning since the patient says he is homeless Plan discussed with: Patient Date of Service: Aug 01, 2024 Billing Provider: VILLA RAMOS MD Common Visit Codes: NOT BILLABLE VILLA RAMOS MD Aug 01, 2024 10:23
[2024-08-01] MEDS: AZITHROMYCIN 500MG/ 250ML 250 ML IV SCH (10:50)
[2024-08-01] MEDS: FUROSEMIDE 40 MG/4 ML VIAL IV ONE (15:15)
--- NOTE | 2024-08-01 17:40 | DVHCONRES ---
Date Seen: Aug 01, 2024 Resident Creating Document: ANA GOMES RESIDENT Referring Physician Jim CHAVARRIA Reason for Consultation Acute on chronic renal failure History of Present Illness Patient is 69-year-old male with past medical history of Chronic obstructive pulmonary disease, diabetes,dyslipidemia, hypertension Chronic kidney disease IIIb presented with chief complaints of altered status . Information has been obtained from EMR given patient is poor historian. Past Medical History As per HPI Past Surgical History As per HPI Family History: Cerebrovascular accident (CVA) G8 FATHER, Onset:Unknown Chronic obstructive pulmonary disease FH: lupus erythematosus G8 BROTHER G8 SISTER Allergies: Coded Allergies: NO KNOWN ALLERGIES (Unverified , 05/26/18) Home Meds Active Scripts Lisinopril (Lisinopril) 5 Mg Tab, 5 MG PO DAILY, #30 TAB Prov:VILLA RAMOS MD 06/13/24 Metformin Hydrochloride (Metformin Hcl) 500 Mg Tab, 1 TAB PO BID, #60 TAB 3 Refills Prov:VILLA RAMOS MD 06/13/24 Lancets (Freestyle Lancets) Lancets Mis, % XX DAILY, #60 Prov:KOFI BARNES MD 06/09/22 Insulin Pen Needle (Bd Pen Needle/Maryann/Ultra) 32 Gx4mm Mis, GX4MM XX BID PRN, #60 Prov:KOFI BARNES MD 06/09/22 Reported Medications Atorvastatin Calcium (ATORVASTATIN CALCIUM) 40 Mg Tab, 1 TAB PO DAILY 04/12/23 Omeprazole (Omeprazole) 20 Mg Cap, 20 MG PO DAILY 06/21/17 Gabapentin (Gabapentin) 300 Mg Cap, 300 MG PO TID 06/21/17 Hydralazine Hcl (Hydralazine Hcl) 50 Mg Tab, 50 MG PO TID 06/21/17 Clonidine Hydrochloride (Clonidine Hcl) 0.2 Mg Tab, 0.2 MG PO Q8HR 06/21/17 Carvedilol (Carvedilol) 12.5 Mg Tab, 12.5 MG PO BID 06/21/17 Current Medications Current Medications Medications (Trade) Dose Ordered Sig/Guadalupe Route PRN Reason Start Time Stop Time Status Last Admin Azithromycin 250 ml @ 125 mls/hr DAILY IV 08/01/24 10:00 08/01/24 10:50 Ceftriaxone Sodium 50 ml @ 100 mls/hr DAILY@09 IV 08/01/24 09:00 08/01/24 09:06 Insulin Human Regular (InsuLIN R) HS SC 07/31/24 22:00 Atorvastatin Calcium (Lipitor) 20 mg HS PO 07/31/24 22:00 07/31/24 22:10 Review of Systems Patient is alert, denying any complaints at this point. Not agitated . More alert compared to day of admission as per nurse. Vital Signs Vital Signs Date Time Temp Pulse Resp B/P (MAP) Pulse Ox O2 Delivery O2 Flow Rate FiO2 08/01/24 16:16 98.7 89 13 128/78 (95) 97 98.7 08/01/24 09:00 Room Air* 0 21 Physical Exam General Appearance: Cooperative. Well developed. Well nourished. NAD Head Exam: Normal inspection Neck Exam: Normal inspection. Non-tender. Normal alignment Pulmonary/Respiratory: Chest non-tender. Clear bilateral breath sounds Cardiovascular/Chest: Regular rate and rhythm. No murmurs. No JVD. Peripheral Pulses: 2+ Radial (R). 2+ Radial (L). 2+ Pedal (R). 2+ Pedal (L) Abdominal Exam: Normal bowel sounds. Soft. Nontender. No hepatospenomegaly. No masses Ankle Exam: Negative ankle edema Lower extremities: Negative lower extremity edema Neuro/Mental Status: A&O x2 Labs/Diagnostic Data Labs Test 08/01/24 17:04 08/01/24 05:06 07/31/24 09:09 07/31/24 05:05 Range/Units POC Glucose 214 H 70-106 mg/dl White Blood Count 8.8 4.4-10.8 10^3/uL Red Blood Count 3.99 L 4.5-5.90 10^6/uL Hemoglobin 11.5 L 13.5-17.5 g/dL Hematocrit 34.2 L 41.0-53.0 % Mean Corpuscular Volume 85.6 80.0-100.0 fL Mean Corpuscular Hemoglobin 28.7 28.0-32.0 pg Mean Corpuscular Hemoglobin Concent 33.5 32.0-36.0 g/dL Red Cell Distribution Width 15.4 H 11.8-14.3 % Platelet Count 376 140-450 10^3/uL Mean Platelet Volume 7.6 6.9-10.8 fL Neutrophils (%) (Auto) 80.2 H 37.0-80.0 % Lymphocytes (%) (Auto) 11.5 10.0-50.0 % Monocytes (%) (Auto) 5.2 0.0-12.0 % Eosinophils (%) (Auto) 2.7 0.0-7.0 % Basophils (%) (Auto) 0.4 0.0-2.0 % Neutrophils # (Auto) 7.0 1.6-8.6 10 ^3/uL Lymphocytes # (Auto) 1.0 0.4-5.4 10 ^3/uL Monocytes # (Auto) 0.5 0-1.3 10 ^3/uL Eosinophils # (Auto) 0.2 0-0.8 10 ^3/uL Basophils # (Auto) 0 0-0.2 10 ^3/uL Nucleated Red Blood Cells 0.0 % Sodium Level 140 136-145 mmol/L Potassium Level 4.7 3.5-5.1 mmol/L Chloride Level 109 H 98-107 mmol/L Carbon Dioxide Level 22 20-31 mmol/L Anion Gap 9 5-15 Blood Urea Nitrogen 37 H 9-23 mg/dL Creatinine 1.94 H 0.700-1.30 mg/dL Glomerular Filtration Rate Calc 37 >90 mL/min BUN/Creatinine Ratio 19.1 10.0-20.0 Serum Glucose 114 H 74-106 mg/dL Calcium Level 8.9 8.7-10.4 mg/dL Total Bilirubin 1.1 H 0.2-1.0 mg/dL Aspartate Amino Transferase (AST) 12 L 13-40 U/L Alanine Aminotransferase (ALT) 14 7-40 U/L Alkaline Phosphatase 180 H 46-116 U/L Total Protein 6.5 5.7-8.2 g/dL Albumin 3.4 3.2-4.8 g/dL Vitamin D 25-Hydroxy 9.9 L 30.0-100 ng/mL Troponin I High Sensitivity 7 </=54 ng/L B-Type Natriuretic Peptide 62.89 0-100 pg/mL Plasma/Serum Blood Alcohol < 3.0 <10 mg/dL Test 07/31/24 03:12 07/31/24 03:00 Range/Units Lactic Acid Level 0.9 0.4-2.0 mmol/L Salicylates Level < 3.0 -30 mg/dL Acetaminophen Level < 2.0 L 10.0-20.0 UG/ML Urine Color Colorless Yellow Urine Clarity Ex.turbid Clear Urine pH 6.0 5.0-9.0 Urine Specific [place] 1.009 1.001-1.035 Urine Protein 2+ H Negative Urine Ketones Negative Negative Urine Blood 1+ H Negative /uL Urine Nitrite Negative Negative Urine Bilirubin Negative Negative Urine Urobilinogen Normal Negative mg/dL Urine Leukocyte Esterase 3+ Negative /uL Urine RBC 19 0 - 3 /hpf Urine WBC 1368 0 - 3 /hpf Urine WBC Clumps Present None Seen /hpf Urine Squamous Epithelial Cells None seen <5 /hpf Urine Bacteria Few H None Seen /hpf Urine Creatinine 33.01 30.0-125.0 mg/dL Urine Sodium 110 40-220 mmol/L Urine Glucose 3+ H Normal mg/dL Urine Total Protein 123.2 H 1-14 mg/dL Urine Opiates Screen Neg NEGATIVE Urine Fentanyl Screen Neg NEGATIVE Urine Barbiturates Screen Neg NEGATIVE Urine Phencyclidine Screen Neg NEGATIVE Urine Amphetamines Screen Pos NEGATIVE Urine Benzodiazepines Screen Neg NEGATIVE Urine Cocaine Screen Neg NEGATIVE Urine Cannabinoids Screen Neg NEGATIVE Microbiology Date/Time Source Procedure Growth Status 07/31/24 08:35 Voided Urine Urine Culture - Preliminary Resulted Assessment Acute kidney injury on Chronic kidney disease IIIb hemodynamic mediated Urinary tract infection Encephalopathy Hypertension Diabetes mellitus type 2 Hyper glycemia Plan Recommendations Dr Meza -lasix 40mg iv -Continue monitor urine output. Strict I&Os -FENA 4.4 % -UDS positive for methamphetamine -Toney catheter -blood sugar control with Insulin sliding scale -Blood pressure control -IV antibiotics as per primary care team -we will closely monitor, repeat kidney function tomorrow. Addendum Patient seen and examined, plan discussed with resident. Agree with above, we will follow closely check bladder scan Plan discussed with: Patient, Other ANA GOMES Aug 01, 2024 17:39 AKIL MEZA MD Aug 01, 2024 21:48
[2024-08-01 22:43] VITALS: PULSE 86; RESP 15; O2SAT 97
[2024-08-02] VITALS (8 sets, daily range): BP systolic 133–161; BP diastolic 69–93; PULSE 76–91; RESP 16–20; TEMP 97.7–98.3; O2SAT 94–97
[2024-08-02 06:54] LABS: Anion Gap 6 (5-15); Carbon Dioxide 26 mmol/L (20-31); Chloride 107 mmol/L (98-107); Potassium 4.8 mmol/L (3.5-5.1); Sodium 139 mmol/L (136-145)
[2024-08-02 06:56] LABS: Calcium 9.2 mg/dL (8.7-10.4)
[2024-08-02 07:00] LABS: BUN/Creatinine Ratio 20.9 (10.0-20.0)
[2024-08-02 07:04] LABS: Blood Urea Nitrogen 51 mg/dL (9-23); Glucose 331 mg/dL (74-106)
--- NOTE | 2024-08-02 09:10 | DVHPN2 ---
Subjective No new complaints Changes from previous H/P or p: Changes Eyes: No Pain, No Vision change, No Conjunctivae inflammation, No Eyelid inflammation, No Other, No Redness ENT: No Ear pain, No Ear discharge, No Nose pain, No Nose discharge, No Nose congestion, No Mouth pain, No Mouth swelling, No Throat pain, No Throat swelling, No Other Cardiovascular: No Chest Pain, No Palpitations, No Orthopnea, No Paroxysmal Noc. Dyspnea, No Edema, No Lt Headedness, No Other Respiratory: No Cough, No Dry; Shortness of breath; No SOB with excertion, No Wheezing, No Hemoptysis, No Pleuritic Pain, No Sputum, No Other Gastrointestinal: No Nausea, No Vomiting, No Abdominal Pain, No Diarrhea, No Constipation, No Melena, No Hematochezia, No Other Genitourinary: No Dysuria, No Frequency, No Incontinence, No Hematuria, No Retention, No Other Musculoskeletal: No other, No neck pain, No shoulder pain, No arm pain, No back pain, No hand pain, No leg pain, No foot pain Skin: No Rash, No Lesions, No Jaundice, No Bruising, No Other Objective Vitals Vital Signs Date Time Temp Pulse Resp B/P (MAP) Pulse Ox O2 Delivery O2 Flow Rate FiO2 08/02/24 01:00 97.9 88 18 148/71 (96) 95 97.9 08/02/24 00:26 Room Air* 0 21 Intake/Output Intake and Output 08/02/24 07:00 Intake Total 1000 ml Output Total 650 ml Balance 350 ml Intake Oral 650 ml IV Total 350 ml Output Urine Total 650 ml # Voids 1 General Appearance: Alert, Oriented X3 Lungs: Clear to auscultation, Normal air movement Cardiovascular: Regular rate, Normal S1, Normal S2 Abdomen: Normal bowel sounds, Soft, No tenderness Extremities: No edema Medications Current Medications Medications Dose Ordered Sig/[place]upe Route Start Time Stop Time Status Last Admin Dose Admin Azithromycin 250 ml @ 125 mls/hr DAILY IV 08/01/24 10:00 08/01/24 10:50 125 MLS/HR Ceftriaxone Sodium 50 ml @ 100 mls/hr DAILY@09 IV 08/01/24 09:00 08/01/24 09:06 100 MLS/HR Diagnostic Test (Pha) 1 strip ACHS 07/31/24 07:00 08/02/24 06:16 1 STRIP Insulin Human Regular HS SC 07/31/24 22:00 Insulin Human Regular AC SC 07/31/24 07:00 08/02/24 06:19 12 UNITS Dextrose 50 ml UD PRN IV 07/31/24 06:30 Sodium Chloride 10 ml Q8HR IV 07/31/24 14:00 08/02/24 06:17 10 ML Acetaminophen/ Hydrocodone Bitart 1 tab Q4HP PRN PO 07/31/24 06:30 07/31/24 08:30 1 TAB Ondansetron HCl 4 mg Q4HP PRN IV 07/31/24 06:30 Docusate Sodium 100 mg BIDPRN PRN PO 07/31/24 06:30 Acetaminophen 650 mg Q6HP PRN PO 07/31/24 06:30 Nitroglycerin 0.4 mg Q5MINP PRN SL 07/31/24 06:30 Morphine Sulfate 2 mg Q30M PRN IV 07/31/24 06:30 Hydralazine HCl 10 mg Q6HP PRN IV 07/31/24 06:30 Atorvastatin Calcium 20 mg HS PO 07/31/24 22:00 07/31/24 22:10 20 MG Famotidine 20 mg DAILY IV 07/31/24 10:00 08/01/24 10:50 20 MG Furosemide 40 mg DAILY IV 08/02/24 10:00 Laboratory Results Laboratory Tests 08/01/24 05:06 08/02/24 05:36 Chemistry Test 08/02/24 05:36 Calcium Level 9.2 mg/dL (8.7-10.4) Magnesium Level 2.0 mg/dL (1.6-2.6) Urinalysis Test 07/31/24 03:00 Urine Color Colorless (Yellow) Urine Clarity Ex.turbid (Clear) Urine pH 6.0 (5.0-9.0) Urine Specific [place] 1.009 (1.001-1.035) Urine Protein 2+ (Negative) H Urine Ketones Negative (Negative) Urine Blood 1+ /uL (Negative) H Urine Nitrite Negative (Negative) Urine Bilirubin Negative (Negative) Urine Urobilinogen Normal mg/dL (Negative) Urine Leukocyte Esterase 3+ /uL (Negative) Urine RBC 19 /hpf (0 - 3) Urine WBC 1368 /hpf (0 - 3) Urine WBC Clumps Present /hpf (None Seen) Urine Squamous Epithelial Cells None seen /hpf (<5) Urine Bacteria Few /hpf (None Seen) H Urine Creatinine 33.01 mg/dL (30.0-125.0) Urine Sodium 110 mmol/L (40-220) Urine Glucose 3+ mg/dL (Normal) H Urine Total Protein 123.2 mg/dL (1-14) H Microbiology Microbiology Date/Time Source Procedure Growth Status 07/31/24 08:35 Voided Urine Urine Culture - Preliminary Resulted Assessment/Plan Assessment/Plan Metabolic encephalopathy due to pneumonia and UTI UTI with Klebsiella ESBL Left lower lobe Pneumonia Homeless Chronic kidney disease Dyslipidemia History of heart failure Hypertension Type 2 diabetes Plan IV antibiotics Rocephin and Zithromax Physical therapy evaluation Nephrology consult Urine culture Continue telemetry Downgrade to [place] Full code rack worker consult for discharge planning since the patient says he is homeless 08/02/2024: Continue IV antibiotics Zithromax and Rocephin Discontinue Lasix due to elevated creatinine Physical therapy rack worker consult for discharge planning Update: UTI ESBL: DC Rocephin and Start Meropenem Plan discussed with: Patient My Orders Orders - VILLA RAMOS MD Procedure Category Date Status Time Pt Request For Service PT 08/01/24 Logged 10:21 * Wildlife Photographer CONS 08/01/24 Transmitted Consult * Wildlife Photographer CONS 08/02/24 Transmitted Consult 00:51 Date of Service: Aug 02, 2024 Billing Provider: VILLA RAMOS MD Common Visit Codes: NOT BILLABLE VILLA RAMOS MD Aug 02, 2024 09:10
[2024-08-02] MEDS ORDERED: FUROSEMIDE 40 MG/4 ML VIAL IV SCH (10:00)
--- NOTE | 2024-08-02 14:17 | DVH ---
RENAL ULTRASOUND CLINICAL HISTORY: CKD TECHNIQUE: Multiple ultrasound images of the kidneys and bladder were obtained. COMPARISON: US KIDNEY on DOS: 04/13/23 FINDINGS: The right kidney measures 8.8 cm in length. The left kidney measures 9.8 cm. There are several simple appearing left renal cysts, largest in the left upper pole measuring 4.2 cm. The bladder prevoid volume is 280 cc. There is diffuse bladder wall thickening. There is dependently layering debris seen within the bladder. IMPRESSION: 1. There is no evidence of nephrolithiasis or hydronephrosis. 2. Bladder demonstrates diffuse wall thickening. There is dependently layering debris seen within the bladder. 3. Several simple appearing left renal cysts. HS:Y
[2024-08-02] MEDS: MEROPENEM 500MG IVPB 50 ML IV ONE (16:34)
--- NOTE | 2024-08-02 17:36 | DVHPN2 ---
Progress Note Date Seen: Aug 02, 2024 Resident Creating Document: ANA GOMES RESIDENT Medical Necessity Reason Pt with a Central, PICC or Fol: No Subjective Patient reports: Other Objective vital signs Vital Sign Date Time Temp Pulse Resp B/P (MAP) Pulse Ox O2 Delivery O2 Flow Rate FiO2 08/02/24 16:24 98.3 76 18 140/69 (92) 94 98.3 08/02/24 00:26 Room Air* 0 21 Total Intake and Output 08/01/24 08/01/24 08/02/24 15:00 23:00 07:00 Intake Total 350 ml 650 ml Output Total 150 ml 500 ml Balance 200 ml 150 ml medications Current Medications Medications Dose Ordered Sig/[place] Route Start Time Stop Time Status Last Admin Dose Admin Azithromycin 250 ml @ 125 mls/hr DAILY IV 08/01/24 10:00 08/02/24 10:18 125 MLS/HR Diagnostic Test (Pha) 1 strip ACHS 07/31/24 07:00 08/02/24 11:18 1 STRIP Insulin Human Regular HS SC 07/31/24 22:00 Insulin Human Regular AC SC 07/31/24 07:00 08/02/24 11:48 6 UNITS Dextrose 50 ml UD PRN IV 07/31/24 06:30 Sodium Chloride 10 ml Q8HR IV 07/31/24 14:00 08/02/24 16:34 10 ML Acetaminophen/ Hydrocodone Bitart 1 tab Q4HP PRN PO 07/31/24 06:30 08/02/24 10:19 1 TAB Ondansetron HCl 4 mg Q4HP PRN IV 07/31/24 06:30 Docusate Sodium 100 mg BIDPRN PRN PO 07/31/24 06:30 Acetaminophen 650 mg Q6HP PRN PO 07/31/24 06:30 Nitroglycerin 0.4 mg Q5MINP PRN SL 07/31/24 06:30 Morphine Sulfate 2 mg Q30M PRN IV 07/31/24 06:30 Hydralazine HCl 10 mg Q6HP PRN IV 07/31/24 06:30 Atorvastatin Calcium 20 mg HS PO 07/31/24 22:00 07/31/24 22:10 20 MG Famotidine 20 mg DAILY IV 07/31/24 10:00 08/02/24 10:18 20 MG Meropenem 50 ml @ 17 mls/hr Q12HR IV 08/02/24 22:00 Examination: GENERAL:Normal, HEENT:Normal, NECK:Normal, LUNGS:Normal, CVS:Abnormal, ABDOMEN:Normal, MSK:Normal, SKIN:Abnormal, NEURO:Normal, NEURO:Abnormal, :Normal laboratory and microbiology Laboratory Tests 08/02/24 05:36 08/01/24 05:06 Test 08/02/24 05:36 Range/Units Serum Glucose 331 #H 74-106 mg/dL Microbiology Date/Time Source Procedure Growth Status 07/31/24 08:35 Voided Urine Urine Culture - Final Klebsiella pneumoniae - ESBL Complete Problem List/Assessment/Plan Problem List/Assessment/Plan Acute kidney injury on Chronic kidney disease IIIb hemodynamic mediated Urinary tract infection Encephalopathy Hypertension Diabetes mellitus type 2 Hyper glycemia Plan Recommendations Dr Meza -YUNIEL Mcintyre. Continue current management as per hospitalist. Bladder scan showed residual 273 cc. No need for Toney. -Continue monitor urine output. Strict I&Os -FENA 4.4 % -UDS positive for methamphetamine -blood sugar control with Insulin sliding scale -Blood pressure control -IV antibiotics as per primary care team -we will closely monitor, repeat kidney function tomorrow. Addendum Patient seen and examined, plan discussed with resident. Agree with above, we will follow closely Check kidney US Plan discussed with: Patient, Other (RN) My Orders My Orders Orders - ANA GOMES Procedure Category Date Status Time Bladder Scan ED NURSING 08/02/24 Transmitted Kidney US 08/02/24 Resulted 13:33 ANA GOMES Aug 02, 2024 17:36 AKIL MEZA MD Aug 02, 2024 20:31
[2024-08-02] MEDS: SODIUM CHLORIDE 0.9% 1,000 ML IV SCH (23:05)
[2024-08-02] MEDS: MEROPENEM 500MG IVPB 50 ML IV SCH (23:07)
[2024-08-03] VITALS (8 sets, daily range): BP systolic 142–166; BP diastolic 82–102; PULSE 60–98; RESP 18–20; TEMP 97.6–98.2; O2SAT 84–97
[2024-08-03 06:56] LABS: Chloride 106 mmol/L (98-107); Potassium 4.6 mmol/L (3.5-5.1); Sodium 139 mmol/L (136-145)
[2024-08-03 06:57] LABS: Anion Gap 9 (5-15); Carbon Dioxide 24 mmol/L (20-31)
[2024-08-03 06:58] LABS: Calcium 9.3 mg/dL (8.7-10.4)
[2024-08-03 07:02] LABS: BUN/Creatinine Ratio 17.9 (10.0-20.0)
[2024-08-03 07:04] LABS: Blood Urea Nitrogen 32 mg/dL (9-23); Glucose 223 mg/dL (74-106)
--- NOTE | 2024-08-03 08:52 | DVHPN2 ---
Subjective No new complaints Changes from previous H/P or p: Changes Eyes: No Pain, No Vision change, No Conjunctivae inflammation, No Eyelid inflammation, No Other, No Redness ENT: No Ear pain, No Ear discharge, No Nose pain, No Nose discharge, No Nose congestion, No Mouth pain, No Mouth swelling, No Throat pain, No Throat swelling, No Other Cardiovascular: No Chest Pain, No Palpitations, No Orthopnea, No Paroxysmal Noc. Dyspnea, No Edema, No Lt Headedness, No Other Respiratory: No Cough, No Dry; Shortness of breath; No SOB with excertion, No Wheezing, No Hemoptysis, No Pleuritic Pain, No Sputum, No Other Gastrointestinal: No Nausea, No Vomiting, No Abdominal Pain, No Diarrhea, No Constipation, No Melena, No Hematochezia, No Other Genitourinary: No Dysuria, No Frequency, No Incontinence, No Hematuria, No Retention, No Other Musculoskeletal: No other, No neck pain, No shoulder pain, No arm pain, No back pain, No hand pain, No leg pain, No foot pain Skin: No Rash, No Lesions, No Jaundice, No Bruising, No Other Objective Vitals Vital Signs Date Time Temp Pulse Resp B/P (MAP) Pulse Ox O2 Delivery O2 Flow Rate FiO2 08/03/24 08:47 98.2 96 20 152/91 (111) 84 98.2 08/02/24 20:00 Room Air* 0 21 Intake/Output Intake and Output 08/03/24 07:00 Intake Total 1190 ml Output Total 900 ml Balance 290 ml Intake Oral 1040 ml IV Total 150 ml Output Urine Total 900 ml General Appearance: Alert, Oriented X3 Lungs: Clear to auscultation, Normal air movement Cardiovascular: Regular rate, Normal S1, Normal S2 Abdomen: Normal bowel sounds, Soft, No tenderness Extremities: No edema Medications Current Medications Medications Dose Ordered Sig/[place] Route Start Time Stop Time Status Last Admin Dose Admin Azithromycin 250 ml @ 125 mls/hr DAILY IV 08/01/24 10:00 08/02/24 10:18 125 MLS/HR Diagnostic Test (Pha) 1 strip ACHS 07/31/24 07:00 08/03/24 06:35 1 STRIP Insulin Human Regular HS SC 07/31/24 22:00 08/02/24 23:28 4 UNITS Insulin Human Regular AC SC 07/31/24 07:00 08/03/24 06:36 6 UNITS Dextrose 50 ml UD PRN IV 07/31/24 06:30 Sodium Chloride 10 ml Q8HR IV 07/31/24 14:00 08/03/24 06:34 10 ML Acetaminophen/ Hydrocodone Bitart 1 tab Q4HP PRN PO 07/31/24 06:30 08/02/24 10:19 1 TAB Ondansetron HCl 4 mg Q4HP PRN IV 07/31/24 06:30 Docusate Sodium 100 mg BIDPRN PRN PO 07/31/24 06:30 Acetaminophen 650 mg Q6HP PRN PO 07/31/24 06:30 Nitroglycerin 0.4 mg Q5MINP PRN SL 07/31/24 06:30 Morphine Sulfate 2 mg Q30M PRN IV 07/31/24 06:30 Hydralazine HCl 10 mg Q6HP PRN IV 07/31/24 06:30 Atorvastatin Calcium 20 mg HS PO 07/31/24 22:00 08/02/24 23:05 20 MG Famotidine 20 mg DAILY IV 07/31/24 10:00 08/02/24 10:18 20 MG Meropenem 50 ml @ 17 mls/hr Q12HR IV 08/02/24 22:00 08/02/24 23:07 17 MLS/HR Sodium Chloride 1,000 ml @ 75 mls/hr [id number] IV 08/02/24 20:45 08/02/24 23:05 75 MLS/HR Laboratory Results Laboratory Tests 08/01/24 05:06 08/03/24 06:29 Chemistry Test 08/03/24 06:29 Calcium Level 9.3 mg/dL (8.7-10.4) Urinalysis Test 07/31/24 03:00 Urine Color Colorless (Yellow) Urine Clarity Ex.turbid (Clear) Urine pH 6.0 (5.0-9.0) Urine Specific [place] 1.009 (1.001-1.035) Urine Protein 2+ (Negative) H Urine Ketones Negative (Negative) Urine Blood 1+ /uL (Negative) H Urine Nitrite Negative (Negative) Urine Bilirubin Negative (Negative) Urine Urobilinogen Normal mg/dL (Negative) Urine Leukocyte Esterase 3+ /uL (Negative) Urine RBC 19 /hpf (0 - 3) Urine WBC 1368 /hpf (0 - 3) Urine WBC Clumps Present /hpf (None Seen) Urine Squamous Epithelial Cells None seen /hpf (<5) Urine Bacteria Few /hpf (None Seen) H Urine Creatinine 33.01 mg/dL (30.0-125.0) Urine Sodium 110 mmol/L (40-220) Urine Glucose 3+ mg/dL (Normal) H Urine Total Protein 123.2 mg/dL (1-14) H Microbiology Microbiology Date/Time Source Procedure Growth Status 07/31/24 08:35 Voided Urine Urine Culture - Final Klebsiella pneumoniae - ESBL Complete Assessment/Plan Assessment/Plan Metabolic encephalopathy due to pneumonia and UTI UTI with Klebsiella ESBL Left lower lobe Pneumonia Homeless Chronic kidney disease Dyslipidemia History of heart failure Hypertension Type 2 diabetes Plan IV antibiotics Rocephin and Zithromax Physical therapy evaluation Nephrology consult Urine culture Continue telemetry Downgrade to med surge Full code green end worker consult for discharge planning since the patient says he is homeless 08/02/2024: Continue IV antibiotics Zithromax and Rocephin Discontinue Lasix due to elevated creatinine Physical therapy green end worker consult for discharge planning Update: UTI ESBL: DC Rocephin and Start Meropenem 08/03/24: Continue Meropenem DC planning Plan discussed with: Patient My Orders Orders - VILLA RAMOS MD Procedure Category Date Status Time Meropenem 500mg Ivpb PHA 08/02/24 In Process (Merrem 500mg/Ns) 22:00 Initiate Vte COLLIN 08/03/24 In Process Prophylaxis 02:43 Transfer Orders XFER 08/03/24 Transmitted 07:11 Date of Service: Aug 03, 2024 Billing Provider: VILLA RAMOS MD Common Visit Codes: NOT BILLABLE VILLA RAMSO MD Aug 03, 2024 08:52
--- NOTE | 2024-08-03 12:54 | DVHPN2 ---
Progress Note Date Seen: Aug 03, 2024 Resident Creating Document: ANA GOMES RESIDENT Medical Necessity Reason Pt with a Central, PICC or Fol: No Subjective Patient reports: No new complaints, Other Objective vital signs Vital Sign Date Time Temp Pulse Resp B/P (MAP) Pulse Ox O2 Delivery O2 Flow Rate FiO2 08/03/24 08:47 98.2 96 20 152/91 (111) 84 98.2 08/02/24 20:00 Room Air* 0 21 Total Intake and Output 08/02/24 08/02/24 08/03/24 15:00 23:00 07:00 Intake Total 50 ml 850 ml 290 ml Output Total 600 ml 300 ml Balance 50 ml 250 ml -10 ml medications Current Medications Medications Dose Ordered Sig/[place] Route Start Time Stop Time Status Last Admin Dose Admin Azithromycin 250 ml @ 125 mls/hr DAILY IV 08/01/24 10:00 08/03/24 11:24 125 MLS/HR Diagnostic Test (Pha) 1 strip ACHS 07/31/24 07:00 08/03/24 11:25 1 STRIP Insulin Human Regular HS SC 07/31/24 22:00 08/02/24 23:28 4 UNITS Insulin Human Regular AC SC 07/31/24 07:00 08/03/24 12:13 12 UNITS Dextrose 50 ml UD PRN IV 07/31/24 06:30 Sodium Chloride 10 ml Q8HR IV 07/31/24 14:00 08/03/24 06:34 10 ML Acetaminophen/ Hydrocodone Bitart 1 tab Q4HP PRN PO 07/31/24 06:30 08/02/24 10:19 1 TAB Ondansetron HCl 4 mg Q4HP PRN IV 07/31/24 06:30 Docusate Sodium 100 mg BIDPRN PRN PO 07/31/24 06:30 Acetaminophen 650 mg Q6HP PRN PO 07/31/24 06:30 Nitroglycerin 0.4 mg Q5MINP PRN SL 07/31/24 06:30 Morphine Sulfate 2 mg Q30M PRN IV 07/31/24 06:30 Hydralazine HCl 10 mg Q6HP PRN IV 07/31/24 06:30 Atorvastatin Calcium 20 mg HS PO 07/31/24 22:00 08/02/24 23:05 20 MG Famotidine 20 mg DAILY IV 07/31/24 10:00 08/03/24 11:24 20 MG Meropenem 50 ml @ 17 mls/hr Q12HR IV 08/02/24 22:00 08/03/24 12:13 17 MLS/HR Sodium Chloride 1,000 ml @ 75 mls/hr [id number] IV 08/02/24 20:45 08/02/24 23:05 75 MLS/HR Examination: GENERAL:Normal, HEENT:Normal, NECK:Normal, LUNGS:Normal, CVS:Normal, ABDOMEN:Normal, MSK:Normal, SKIN:Normal, NEURO:Normal laboratory and microbiology Laboratory Tests 08/03/24 06:29 08/01/24 05:06 Test 08/03/24 06:29 Range/Units Serum Glucose 223 #H 74-106 mg/dL Microbiology Date/Time Source Procedure Growth Status 07/31/24 08:35 Voided Urine Urine Culture - Final Klebsiella pneumoniae - ESBL Complete Problem List/Assessment/Plan Problem List/Assessment/Plan Acute kidney injury on Chronic kidney disease IIIb hemodynamic mediated Urinary tract infection Encephalopathy Hypertension Diabetes mellitus type 2 Hyper glycemia Methamphetamine use Plan Recommendations Dr Perea -IV hydration with normal saline 75 mL/hour. kidney function and urine output improving -renal ultrasound:There is no evidence of nephrolithiasis or hydronephrosis. -Continue monitor urine output. Strict I&Os -UDS positive for methamphetamine -blood sugar control with Insulin sliding scale -Blood pressure control -IV antibiotics as per primary care team -we will closely monitor, repeat kidney function tomorrow. Addendum Patient seen and examined, plan discussed with resident. Agree with above, we will follow closely Plan discussed with: Patient, Other (RN) My Orders My Orders Orders - ANA GOMES Procedure Category Date Status Time Bladder Scan ED NURSING 08/02/24 Transmitted Kidney US 08/02/24 Resulted 13:33 ANA GOMES Aug 03, 2024 12:54 AKIL PEREA MD Aug 03, 2024 18:53
--- NOTE | 2024-08-03 20:02 | DVHINCON2 ---
Date of service: Aug 03, [address] HARGROVE History of Present Illness 69 year old man history of diabetes mellitus type 2, hypertension, hyperlipidemia, CHF, chronic kidney disease presented with [facility] with acute metabolic encephalopathy and shortness of breath. Chest x-ray was notable for left lower lobe opacities. He was initiated on antibiotics. He was a productive cough. Pulmonary consultation is called for evaluation of pneumonia and dyspnea on exertion. Review of systems: 14 point review of systems is negative unless otherwise noted above. Past medical history: CHF, CKD, diabetes mellitus type 2, hyperlipidemia, hypertension Past surgical history: Unable to obtain due to patient's altered mental status. Medications: Reviewed Allergies: No known drug allergies. Family history: No family history of premature CAD. No family history of lung disease Social history: Nonsmoker. No alcohol or illicit drug use. Lives at home. Family History: Cerebrovascular accident (CVA) G8 FATHER, Onset:Unknown Chronic obstructive pulmonary disease FH: lupus erythematosus G8 BROTHER G8 SISTER Allergies: Coded Allergies: NO KNOWN ALLERGIES (Unverified , 05/26/18) Home Meds Active Scripts Lisinopril (Lisinopril) 5 Mg Tab, 5 MG PO DAILY, #30 TAB Prov:VILLA HARGROVE MD 06/13/24 Metformin Hydrochloride (Metformin Hcl) 500 Mg Tab, 1 TAB PO BID, #60 TAB 3 Refills Prov:VILLA HARGROVE MD 06/13/24 Lancets (Freestyle Lancets) Lancets Mis, % XX DAILY, #60 Prov:KOFI BARNES MD 06/09/22 Insulin Pen Needle (Bd Pen Needle/Maryann/Ultra) 32 Gx4mm Mis, GX4MM XX BID PRN, #60 Prov:KOFI BARNES MD 06/09/22 Reported Medications Atorvastatin Calcium (ATORVASTATIN CALCIUM) 40 Mg Tab, 1 TAB PO DAILY 04/12/23 Omeprazole (Omeprazole) 20 Mg Cap, 20 MG PO DAILY 06/21/17 Gabapentin (Gabapentin) 300 Mg Cap, 300 MG PO TID 06/21/17 Hydralazine Hcl (Hydralazine Hcl) 50 Mg Tab, 50 MG PO TID 06/21/17 Clonidine Hydrochloride (Clonidine Hcl) 0.2 Mg Tab, 0.2 MG PO Q8HR 06/21/17 Carvedilol (Carvedilol) 12.5 Mg Tab, 12.5 MG PO BID 06/21/17 Current Medications Current Medications Medications (Trade) Dose Ordered Sig/[place] Route PRN Reason Start Time Stop Time Status Last Admin Meropenem 50 ml @ 17 mls/hr Q12HR IV 08/02/24 22:00 08/03/24 12:13 Sodium Chloride 1,000 ml @ 75 mls/hr [id number] IV 08/02/24 20:45 08/02/24 23:05 Vital Signs Vital Signs Date Time Temp Pulse Resp B/P (MAP) Pulse Ox O2 Delivery O2 Flow Rate FiO2 08/03/24 13:30 86 142/82 (102) 08/03/24 13:00 97.6 18 96 97.6 08/03/24 08:00 Room Air* 0 21 Physical Exam Gen.: Patient lying in bed in no apparent distress. He is breathing comfortably on room air. Head: Normocephalic, atraumatic Eyes: EOMI/PERRLA. Ears: Normal hearing. Normal anatomy. Neck/trachea: Trachea midline, supple. Nose: Normal external anatomy. Mouth: Moist mucous membranes. Chest: Fair air entry bilaterally. No wheezing or rhonchi. Cardio vascular: Positive S1, positive S2. Regular rate and rhythm. Abdomen: Positive bowel sounds in all 4 quadrants. Soft, non-tender, non- distended. : Deferred. Rectal: Deferred Skin: Warm, dry. Extremities: 2+ radial pulses bilaterally. No lower extremity edema. Neuro: Awake, alert, oriented x3. No gross motor or sensory deficits. Cranial nerves II through XII intact. Gait not assessed. Labs/Diagnostic Data Labs Test 08/03/24 17:21 08/03/24 06:29 08/02/24 05:36 08/01/24 05:06 Range/Units POC Glucose 151 H 70-106 mg/dl Sodium Level 139 136-145 mmol/L Potassium Level 4.6 3.5-5.1 mmol/L Chloride Level 106 98-107 mmol/L Carbon Dioxide Level 24 20-31 mmol/L Anion Gap 9 5-15 Blood Urea Nitrogen 32 #H 9-23 mg/dL Creatinine 1.79 H 0.700-1.30 mg/dL Glomerular Filtration Rate Calc 41 >90 mL/min BUN/Creatinine Ratio 17.9 10.0-20.0 Serum Glucose 223 #H 74-106 mg/dL Calcium Level 9.3 8.7-10.4 mg/dL Magnesium Level 2.0 1.6-2.6 mg/dL White Blood Count 8.8 4.4-10.8 10^3/uL Red Blood Count 3.99 L 4.5-5.90 10^6/uL Hemoglobin 11.5 L 13.5-17.5 g/dL Hematocrit 34.2 L 41.0-53.0 % Mean Corpuscular Volume 85.6 80.0-100.0 fL Mean Corpuscular Hemoglobin 28.7 28.0-32.0 pg Mean Corpuscular Hemoglobin Concent 33.5 32.0-36.0 g/dL Red Cell Distribution Width 15.4 H 11.8-14.3 % Platelet Count 376 140-450 10^3/uL Mean Platelet Volume 7.6 6.9-10.8 fL Neutrophils (%) (Auto) 80.2 H 37.0-80.0 % Lymphocytes (%) (Auto) 11.5 10.0-50.0 % Monocytes (%) (Auto) 5.2 0.0-12.0 % Eosinophils (%) (Auto) 2.7 0.0-7.0 % Basophils (%) (Auto) 0.4 0.0-2.0 % Neutrophils # (Auto) 7.0 1.6-8.6 10 ^3/uL Lymphocytes # (Auto) 1.0 0.4-5.4 10 ^3/uL Monocytes # (Auto) 0.5 0-1.3 10 ^3/uL Eosinophils # (Auto) 0.2 0-0.8 10 ^3/uL Basophils # (Auto) 0 0-0.2 10 ^3/uL Nucleated Red Blood Cells 0.0 % Total Bilirubin 1.1 H 0.2-1.0 mg/dL Aspartate Amino Transferase (AST) 12 L 13-40 U/L Alanine Aminotransferase (ALT) 14 7-40 U/L Alkaline Phosphatase 180 H 46-116 U/L Total Protein 6.5 5.7-8.2 g/dL Albumin 3.4 3.2-4.8 g/dL Vitamin D 25-Hydroxy 9.9 L 30.0-100 ng/mL Test 07/31/24 09:09 07/31/24 05:05 07/31/24 03:12 07/31/24 03:00 Range/Units Troponin I High Sensitivity 7 </=54 ng/L B-Type Natriuretic Peptide 62.89 0-100 pg/mL Plasma/Serum Blood Alcohol < 3.0 <10 mg/dL Lactic Acid Level 0.9 0.4-2.0 mmol/L Salicylates Level < 3.0 -30 mg/dL Acetaminophen Level < 2.0 L 10.0-20.0 UG/ML Urine Color Colorless Yellow Urine Clarity Ex.turbid Clear Urine pH 6.0 5.0-9.0 Urine Specific [place] 1.009 1.001-1.035 Urine Protein 2+ H Negative Urine Ketones Negative Negative Urine Blood 1+ H Negative /uL Urine Nitrite Negative Negative Urine Bilirubin Negative Negative Urine Urobilinogen Normal Negative mg/dL Urine Leukocyte Esterase 3+ Negative /uL Urine RBC 19 0 - 3 /hpf Urine WBC 1368 0 - 3 /hpf Urine WBC Clumps Present None Seen /hpf Urine Squamous Epithelial Cells None seen <5 /hpf Urine Bacteria Few H None Seen /hpf Urine Creatinine 33.01 30.0-125.0 mg/dL Urine Sodium 110 40-220 mmol/L Urine Glucose 3+ H Normal mg/dL Urine Total Protein 123.2 H 1-14 mg/dL Urine Opiates Screen Neg NEGATIVE Urine Fentanyl Screen Neg NEGATIVE Urine Barbiturates Screen Neg NEGATIVE Urine Phencyclidine Screen Neg NEGATIVE Urine Amphetamines Screen Pos NEGATIVE Urine Benzodiazepines Screen Neg NEGATIVE Urine Cocaine Screen Neg NEGATIVE Urine Cannabinoids Screen Neg NEGATIVE Microbiology Date/Time Source Procedure Growth Status 07/31/24 08:35 Voided Urine Urine Culture - Final Klebsiella pneumoniae - ESBL Complete Assessment IMPRESSION: PNEUMONIA LIKELY GRAM-NEGATIVE METABOLIC ENCEPHALOPATHY DUE TO PNEUMONIA AND UTI URINARY TRACT INFECTION PNEUMONIA LEFT LOWER LOBE HOMELESS CHRONIC KIDNEY DISEASE TYPE 2 DIABETES MELLITUS Congestive heart failure Plan: On room air Continue antibiotics -meropenem/azithromycin Follow up urine culture Send sputum for Gram stain and culture if able to produce. Incentive spirometry Maintain euvolemia. Monitor renal function Monitor electrolytes Supplement as necessary Nephrology recommendations appreciated. Social work consultation due to homelessness DVT prophylaxis GI prophylaxis-famotidine Prognosis: Poor given multiple comorbidities. Rest of plan per hospitalist and other consultants. Thank you Dr. Hargrove for allowing me to participate in this patient's care. Further recommendations will depend on patient's clinical course. Please do not hesitate to contact me if you have any questions or concerns. This medical document was created using an electronic medical record system with [employer] dictation system. Although this document has been carefully reviewed, there may still be some phonetic and typographical errors. These areas are purely typographical due to imperfections of the software programs, and do not reflect any compromise in the patient's medical care. Plan discussed with: Patient, Other (RN, MD) LAMONT PRINCE MD Aug 03, 2024 20:02
[2024-08-03] MEDS: hydrALAZINE HCL 20 MG/ML VL IV PRN (22:05)
[2024-08-04 01:00] VITALS: BP_SYST 107; BP_SYST 130; BP_DIAS 53; BP_DIAS 75; PULSE 110; PULSE 84; RESP 18; RESP 19; TEMP 98.2; TEMP 98.6; O2SAT 93; O2SAT 95
[2024-08-04 05:00] VITALS: BP 91/51; PULSE 109; RESP 18; TEMP 99.1; O2SAT 92
[2024-08-04 06:58] LABS: Basophils # (auto) 0 10 ^3/uL (0-0.2); Basophils % (auto) 0.6 % (0.0-2.0); Eosinophils # (auto) 0.7 10 ^3/uL (0-0.8); Eosinophils % (auto) 9.2 % (0.0-7.0); Hematocrit 32.7 % (41.0-53.0); Hemoglobin 11.2 g/dL (13.5-17.5); Lymphocytes # (auto) 1.9 10 ^3/uL (0.4-5.4); Lymphocytes % (auto) 26.7 % (10.0-50.0); Mean Corpuscular Hemoglobin 29.4 pg (28.0-32.0); Mean Corpuscular Hgb Conc. 34.3 g/dL (32.0-36.0); Mean Corpuscular Volume 85.7 fL (80.0-100.0); Monocytes # (auto) 0.5 10 ^3/uL (0-1.3); Monocytes % (auto) 7.5 % (0.0-12.0); Platelet Count (auto) 288 10^3/uL (140-450); Red Blood Cells 3.81 10^6/uL (4.5-5.90); Red Cell Distribution Width 15.2 % (11.8-14.3); White Blood Cell 7.1 10^3/uL (4.4-10.8)
[2024-08-04 07:04] LABS: Potassium 4.4 mmol/L (3.5-5.1)
[2024-08-04 07:05] LABS: Carbon Dioxide 24 mmol/L (20-31)
[2024-08-04 07:10] LABS: BUN/Creatinine Ratio 20.3 (10.0-20.0)
[2024-08-04 07:14] LABS: Blood Urea Nitrogen 39 mg/dL (9-23); Chloride 109 mmol/L (98-107); Glucose 326 mg/dL (74-106)
[2024-08-04 07:48] LABS: Anion Gap 6 (5-15); Sodium 139 mmol/L (136-145)
[2024-08-04] MEDS ORDERED: LEVO250T58 PO (08:46)
--- NOTE | 2024-08-04 08:53 | DVHDS2 ---
Discharge Summary Date of Admission Jul 31, 2024 at 06:31 Date of Discharge: Aug 04, 2024 Labs/Diagnostic Data: Laboratory Results Test 08/04/24 05:45 08/04/24 05:43 08/02/24 05:36 08/01/24 05:06 White Blood Count 7.1 10^3/uL (4.4-10.8) Red Blood Count 3.81 10^6/uL (4.5-5.90) Hemoglobin 11.2 g/dL (13.5-17.5) Hematocrit 32.7 % (41.0-53.0) Mean Corpuscular Volume 85.7 fL (80.0-100.0) Mean Corpuscular Hemoglobin 29.4 pg (28.0-32.0) Mean Corpuscular Hemoglobin Concent 34.3 g/dL (32.0-36.0) Red Cell Distribution Width 15.2 % (11.8-14.3) Platelet Count 288 10^3/uL (140-450) Mean Platelet Volume 8.0 fL (6.9-10.8) Neutrophils (%) (Auto) 56.0 % (37.0-80.0) Lymphocytes (%) (Auto) 26.7 % (10.0-50.0) Monocytes (%) (Auto) 7.5 % (0.0-12.0) Eosinophils (%) (Auto) 9.2 % (0.0-7.0) Basophils (%) (Auto) 0.6 % (0.0-2.0) Neutrophils # (Auto) 4.0 10 ^3/uL (1.6-8.6) Lymphocytes # (Auto) 1.9 10 ^3/uL (0.4-5.4) Monocytes # (Auto) 0.5 10 ^3/uL (0-1.3) Eosinophils # (Auto) 0.7 10 ^3/uL (0-0.8) Basophils # (Auto) 0 10 ^3/uL (0-0.2) Nucleated Red Blood Cells 0.0 % Sodium Level 139 mmol/L (136-145) Potassium Level 4.4 mmol/L (3.5-5.1) Chloride Level 109 mmol/L (98-107) Carbon Dioxide Level 24 mmol/L (20-31) Anion Gap 6 (5-15) Blood Urea Nitrogen 39 mg/dL (9-23) Creatinine 1.92 mg/dL (0.700-1.30) Glomerular Filtration Rate Calc 37 mL/min (>90) BUN/Creatinine Ratio 20.3 (10.0-20.0) Serum Glucose 326 mg/dL (74-106) Calcium Level 9.0 mg/dL (8.7-10.4) POC Glucose 330 mg/dl (70-106) Magnesium Level 2.0 mg/dL (1.6-2.6) Total Bilirubin 1.1 mg/dL (0.2-1.0) Aspartate Amino Transferase (AST) 12 U/L (13-40) Alanine Aminotransferase (ALT) 14 U/L (7-40) Alkaline Phosphatase 180 U/L (46-116) Total Protein 6.5 g/dL (5.7-8.2) Albumin 3.4 g/dL (3.2-4.8) Vitamin D 25-Hydroxy 9.9 ng/mL (30.0-100) Test 07/31/24 09:09 07/31/24 05:05 07/31/24 03:12 07/31/24 03:00 Troponin I High Sensitivity 7 ng/L (</=54) B-Type Natriuretic Peptide 62.89 pg/mL (0-100) Plasma/Serum Blood Alcohol < 3.0 mg/dL (<10) Lactic Acid Level 0.9 mmol/L (0.4-2.0) Salicylates Level < 3.0 mg/dL (-30) Acetaminophen Level < 2.0 UG/ML (10.0-20.0) Urine Color Colorless (Yellow) Urine Clarity Ex.turbid (Clear) Urine pH 6.0 (5.0-9.0) Urine Specific [place] 1.009 (1.001-1.035) Urine Protein 2+ (Negative) Urine Ketones Negative (Negative) Urine Blood 1+ /uL (Negative) Urine Nitrite Negative (Negative) Urine Bilirubin Negative (Negative) Urine Urobilinogen Normal mg/dL (Negative) Urine Leukocyte Esterase 3+ /uL (Negative) Urine RBC 19 /hpf (0 - 3) Urine WBC 1368 /hpf (0 - 3) Urine WBC Clumps Present /hpf (None Seen) Urine Squamous Epithelial Cells None seen /hpf (<5) Urine Bacteria Few /hpf (None Seen) Urine Creatinine 33.01 mg/dL (30.0-125.0) Urine Sodium 110 mmol/L (40-220) Urine Glucose 3+ mg/dL (Normal) Urine Total Protein 123.2 mg/dL (1-14) Urine Opiates Screen Neg (NEGATIVE) Urine Fentanyl Screen Neg (NEGATIVE) Urine Barbiturates Screen Neg (NEGATIVE) Urine Phencyclidine Screen Neg (NEGATIVE) Urine Amphetamines Screen Pos (NEGATIVE) Urine Benzodiazepines Screen Neg (NEGATIVE) Urine Cocaine Screen Neg (NEGATIVE) Urine Cannabinoids Screen Neg (NEGATIVE) Other Laboratory Tests 08/04/24 05:45 Brief Hx & Hospital Course: 69 year old male with h/o DM, CKD, HTN, was admitted for UTI and pneumonia Urine culture showed Klebsiella ESBL He had IV antibiotics He is on room air Physical therapy ambulated him, he can ambulate independently social services specialist offered him placement, he declined I talked to him again this morning, he said he will find another arrangement and that he is not willing to pay the rent for the room and board place Final diagnoses: Metabolic encephalopathy due to pneumonia and UTI UTI with Klebsiella ESBL Left lower lobe Pneumonia Homeless Chronic kidney disease Dyslipidemia History of heart failure Hypertension Type 2 diabetes The patient is stable for discharge on PO Levaquin Resume the home meds Condition at Discharge: Stable Final Diagnosis/Problems List UTI ESBL PNA CKD Discharge Disposition: Home SNF Discharge Will this Physician continue t: No Discharge Instruct/Medications Diet: Consistent carbohydrate, Cardiac 2g Na,low cholest, Renal Activity: No Restrictions, As Tolerated Follow Up/Referral: PCP SOLOMON Medications: Levaquin 250 mg qd x 7 days Resume home meds Discharge Statement: "Patient was advised to return to the ER or call 911 if any headaches, dizziness, shortness of breath, chest pain, abdominal pain, bleeding, fevers, or worsening of medical condition. Patient was counseled about treatment plan, medications, possible side effects, patientverbalized understanding. All questions were answered to the best of my ability. This discharge took greater then 30 minutes in planning, reviewing documentation, counseling the patient, and discussing with other team members." ASSESSMENT ASSESSMENT Assessment UTI ESBL PNA CKD Date of Service: Aug 04, 2024 Billing Provider: VILLA RAMOS MD Common Visit Codes: [id number] DISCH DAY >30min VILLA RAMOS MD Aug 04, 2024 08:52
[2024-08-04 09:00] VITALS: BP 115/76; PULSE 82; RESP 20; TEMP 97.5; O2SAT 99
[2024-08-04 09:04] VITALS: BP 160/85; TEMP 37.3
--- NOTE | 2024-08-04 15:28 | DVHPN2 ---
Progress Note Date Seen: Aug 04, 2024 Medical Necessity Reason Pt with a Central, PICC or Fol: No Subjective Patient reports: No new complaints Review of Systems: Deferred Objective vital signs Vital Sign Date Time Temp Pulse Resp B/P (MAP) Pulse Ox O2 Delivery O2 Flow Rate FiO2 08/04/24 09:04 37.3 08/04/24 09:00 82 20 115/76 (89) 99 08/04/24 08:22 Room Air* 0 21 Total Intake and Output 08/03/24 08/03/24 08/04/24 15:00 23:00 07:00 Intake Total 450 ml 900 ml 300 ml Output Total 1000 ml 325 ml Balance 450 ml -100 ml -25 ml laboratory and microbiology Laboratory Tests 08/04/24 05:45 Test 08/04/24 05:45 Range/Units Serum Glucose 326 #H 74-106 mg/dL Microbiology Date/Time Source Procedure Growth Status 07/31/24 08:35 Voided Urine Urine Culture - Final Klebsiella pneumoniae - ESBL Complete Problem List/Assessment/Plan Problem List/Assessment/Plan Acute kidney injury on Chronic kidney disease IIIb hemodynamic mediated Urinary tract infection Encephalopathy Hypertension Diabetes mellitus type 2 Hyper glycemia Methamphetamine use Plan Recommendations Improved renal function since admission Plan discussed with: Patient Dietary Evaluation Review Comments: CCHO-60 with renal specific-60g Protein restrictions Expected Outcomes/Goals: controlled DM, nutrition related lab values AKIL WESTBROOK MD Aug 04, 2024 15:28
--- NOTE | 2024-08-04 22:18 | DVHPN2 ---
Progress Note - Dictate Date Seen: Aug 04, 2024 Medical Necessity Reason Pt with a Central, PICC or Fol: No Subjective Patient seen and examined at bedside. Breathing comfortably on room air. Overnight events reviewed. vital signs Vital Sign Date Time Temp Pulse Resp B/P (MAP) Pulse Ox O2 Delivery O2 Flow Rate FiO2 08/04/24 09:04 37.3 08/04/24 09:00 82 20 115/76 (89) 99 08/04/24 08:22 Room Air* 0 21 Total Intake and Output 08/03/24 08/03/24 08/04/24 15:00 23:00 07:00 Intake Total 450 ml 900 ml 300 ml Output Total 1000 ml 325 ml Balance 450 ml -100 ml -25 ml objective Gen.: Patient lying in bed in no apparent distress. Breathing on room air. Head: Normocephalic, atraumatic. Eyes: EOMI/PERRLA. Ears: Normal hearing. Normal anatomy. Neck/trachea: Trachea midline, supple. Nose: Normal external anatomy. Mouth: Moist mucous membranes. Chest: Decreased air entry bilaterally. No wheezing or rhonchi. Cardiovascular: Positive S1, positive S2. Regular rate and rhythm. Abdomen: Positive bowel sounds in all 4 quadrants. Soft, non-tender, non- distended. : Deferred. Rectal: Deferred. Skin: Warm, dry. Intact. Extremities: 2+ radial pulses bilaterally. No lower extremity edema. Neuro: Awake, alert, oriented x3. No gross motor or sensory deficits. Cranial nerves II through XII intact. Gait not assessed. laboratory and microbiology Laboratory Tests 08/04/24 05:45 Test 08/04/24 05:45 Range/Units Serum Glucose 326 #H 74-106 mg/dL Assessment/Plan IMPRESSION: PNEUMONIA LIKELY GRAM-NEGATIVE METABOLIC ENCEPHALOPATHY DUE TO PNEUMONIA AND UTI URINARY TRACT INFECTION PNEUMONIA LEFT LOWER LOBE HOMELESS CHRONIC KIDNEY DISEASE TYPE 2 DIABETES MELLITUS Congestive heart failure Events: Breathing on room air No respiratory distress. Continue antibiotics Patient is feeling better. He is stable for discharge from the pulmonary standpoint. Labs and imaging reviewed. Rest of plan as noted below. Plan: On room air Continue antibiotics -meropenem/azithromycin Follow up urine culture Send sputum for Gram stain and culture if able to produce. Incentive spirometry Maintain euvolemia. Monitor renal function Monitor electrolytes Supplement as necessary Nephrology recommendations appreciated. Accu-Cheks, ISS. Social work consultation due to homelessness DVT prophylaxis GI prophylaxis-famotidine Prognosis: Poor given multiple comorbidities. Rest of plan per hospitalist and other consultants. Thank you Dr. Hargrove for allowing me to participate in this patient's care. Further recommendations will depend on patient's clinical course. Please do not hesitate to contact me if you have any questions or concerns. This medical document was created using an electronic medical record system with [employer] dictation system. Although this document has been carefully reviewed, there may still be some phonetic and typographical errors. These areas are purely typographical due to imperfections of the software programs, and do not reflect any compromise in the patient's medical care. Dietary Evaluation Review Comments: CCHO-60 with renal specific-60g Protein restrictions Expected Outcomes/Goals: controlled DM, nutrition related lab values WNL Plan discussed with: Patient, Other (JASVIR Fitzpatrick) LAMONT PRINCE MD Aug 04, 2024 22:18
--- NOTE | 2024-08-08 11:21 | ECG ---
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
== END 2024-08-04 11:00 | disposition home or self-care (01) | DRG 177 ==
LOC: ER 23:59 → EDBD 23:59 → TELE 07-31 06:31 → TELE-WESTW 08-01 23:52 → WEST WING 08-03 07:48
PROVIDERS: ADMIT Nurse Practitioner Family; ATTEND Internal Medicine Geriatric Medicine
DX: J15.69 Pneumonia due to other Gram-negative bacteria (principal); G93.41 Metabolic encephalopathy; N30.01 Acute cystitis with hematuria; N17.9 Acute kidney failure, unspecified; I13.0 Hypertensive heart and chronic kidney disease with heart failure and stage 1 through stage 4 chronic kidney disease, or unspecified chronic kidney disease; Z59.00 Homelessness unspecified; Z16.12 Extended spectrum beta lactamase (ESBL) resistance; B96.1 Klebsiella pneumoniae [K. pneumoniae] as the cause of diseases classified elsewhere; E11.65 Type 2 diabetes mellitus with hyperglycemia; E11.22 Type 2 diabetes mellitus with diabetic chronic kidney disease; E78.5 Hyperlipidemia, unspecified; I50.9 Heart failure, unspecified; F17.200 Nicotine dependence, unspecified, uncomplicated; N18.32 Chronic kidney disease, stage 3b; F15.90 Other stimulant use, unspecified, uncomplicated; Z82.3 Family history of stroke; Z82.5 Family history of asthma and other chronic lower respiratory diseases
CPT/HCPCS: 36415; 70450; 71045; 76775; 80048; 80053; 80307; 80320; 80329; 81001; 82306; 82570; 82962; 83605; 83735; 83880; 84156; 84300; 84484; 85025; 87086; 87088; 87186; 93005; 97110; 97116; 97163; G0378; J0692; J1815; J2185; J3490

== ENCOUNTER 2024-09-01 07:25 | Inpatient (IN) | payer OTHER, MEDICAID ==
[~2024-09-01] VITALS: Ht 175.3 cm; Wt 86.7 kg
[~2024-09-01 07:25] MED LIST changes: +LEVO250T58 PO
[2024-09-01 07:45] VITALS: PULSE 101; RESP 16; O2SAT 94
--- NOTE | 2024-09-01 07:45 | ED.PDOC ---
History of Present Illness HPI Comments 69Y M with PMHx DM, HTN, HLD, CHF, and CKD presents to ED via EMS for chief complaint possible syncope. Per EMS, staff at [facility] found the pt asleep inside the restaurant and he had urinated on himself. EMS denies seizure-like activity. Upon EMS arrival on scene, pt's BS was in the 400s. Pt states he is not experiencing any symptoms. Pt denies chest pain, SOB, and headache. Pt is homeless. 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, Medications, Allergies Allergies: Coded Allergies: NO KNOWN ALLERGIES (Unverified , 05/26/18) Home Meds Active Scripts Levofloxacin Hemihydrate (LEVOFLOXACIN) 250 Mg Tab, 250 MG PO DAILY, #7 TAB Prov:VILLA RAMOS MD 08/04/24 Lisinopril (Lisinopril) 5 Mg Tab, 5 MG PO DAILY, #30 TAB Prov:VILLA RAMOS MD 06/13/24 Metformin Hydrochloride (Metformin Hcl) 500 Mg Tab, 1 TAB PO BID, #60 TAB 3 Refills Prov:VILLA RAMOS MD 06/13/24 Lancets (Freestyle Lancets) Lancets Mis, % XX DAILY, #60 Prov:KOFI BARNES MD 06/09/22 Insulin Pen Needle (Bd Pen Needle/Maryann/Ultra) 32 Gx4mm Mis, GX4MM XX BID PRN, #60 Prov:KOFI BARNES MD 06/09/22 Reported Medications Atorvastatin Calcium (ATORVASTATIN CALCIUM) 40 Mg Tab, 1 TAB PO DAILY 04/12/23 Omeprazole (Omeprazole) 20 Mg Cap, 20 MG PO DAILY 06/21/17 Gabapentin (Gabapentin) 300 Mg Cap, 300 MG PO TID 06/21/17 Hydralazine Hcl (Hydralazine Hcl) 50 Mg Tab, 50 MG PO TID 06/21/17 Clonidine Hydrochloride (Clonidine Hcl) 0.2 Mg Tab, 0.2 MG PO Q8HR 06/21/17 Carvedilol (Carvedilol) 12.5 Mg Tab, 12.5 MG PO BID 06/21/17 Information Source: Patient, Emergency Med Personnel Mode of Arrival: EMS Severity: None Prehospital treatment: None Past Medical History PAST MEDICAL HISTORY: CHF, CKF, DM, High Lipids, HTN Surgical History: Pt Confused Family History Family History: Pt Confused Social History Smoker: Pt Confused Alcohol: Pt Confused Drugs: Pt Confused Lives In: Homeless Constitutional: denies: chills, diaphoresis, fatigue, fever, malaise, sweats, weakness, others EENTM: denies: blurred vision, double vision, ear bleeding, ear discharge, ear drainage, ear pain, ear ringing, eye pain, eye redness, hearing loss, mouth pain, mouth swelling, nasal discharge, nose bleeding, nose congestion, nose pain, photophobia, tearing, throat pain, throat swelling, voice changes, others Respiratory: denies: cough, hemoptysis, orthopnea, SOB at rest, shortness of breath, SOB with excertion, stridor, wheezing, others Cardiovascular: denies: chest pain, dizzy spells, diaphoresis, Dyspnea on exertion, edema, irregular heart beat, left arm pain, lightheadedness, palpitations, PND, syncope, others Gastrointestinal: denies: abdomen distended, abdominal pain, blood streaked bowels, constipated, diarrhea, dysphagia, difficulty swallowing, hematemesis, melena, nausea, poor appetite, poor fluid intake, rectal bleeding, rectal pain, vomiting, others Genitourinary: denies: burning, dysuria, flank pain, frequency, hematuria, incontinence, penile discharge, penile sore, pain, testicle pain, testicle swelling, urgency, others Neurological: denies: dizziness, fainting, headache, left sided numbness, left sided weakness, numbness, paresthesia, pre-existing deficit, right sided numbness, right sided weakness, seizure, speech problems, tingling, tremors, weakness, others Musculoskeletal: denies: back pain, gout, joint pain, joint swelling, muscle pain, muscle stiffness, neck pain, others Integumetry: denies: bruises, change in color, change in hair/nails, dryness, laceration, lesions, lumps, rash, wounds, others Allergic/Immunocompromised: denies: Difficulty Healing, Frequent Infections, Hives, Itching, others Hematologic/Lymphatic: denies: anemia, blood clots, easy bleeding, easy bruising, swollen glands, others Endocrine: denies: excessive hunger, excessive sweating, excessive thirst, excessive urination, flushing, intolerance to cold, intolerance to heat, unexplained weight gain, unexplained weight loss, others Psychiatric: denies: anxiety, bipolar disorder, depression, hopeless, panic disorder, schizophrenia, sleepless, suicidal, others All Other Systems: Reviewed and Negative Physical Exam General Appearance: No Apparent Distress, Normal HEENT: Normal ENT Inspection, Pharynx Normal, TMs Normal Neck: Full Range of Motion, Non-Tender, Normal, Normal Inspection Respiratory: Chest Non-Tender, Lungs Clear, No Accessory Muscle Use, No Respiratory Distress, Normal Breath Sounds Cardiovascular: No Edema, No JVD, No Murmur, No Gallop, Normal Peripheral Pulses, Regular Rate/Rhythm Breast Exam: Deferred Gastrointestinal: No Organomegaly, Non Tender, No Pulsatile Mass, Normal Bowel Sounds, Soft Genitalia: Deferred Pelvic: Deferred Rectal: Deferred Extremities: No calf tenderness, Normal capillary refill, Normal inspection, Normal range of motion, Non-tender, No pedal edema Musculoskeletal : Apperance: Normal Neurologic: Alert, 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 Was a procedure done?: No Differential Dx Considerations may include: vasovagal syncope, intoxication, overdose, seizure, cva, hypoglycemia, hypotension, cardiogenic syncope, arrhythmias X-Ray, Labs, Meds, VS Vital Signs Date Time Temp Pulse Resp B/P (MAP) Pulse Ox O2 Delivery O2 Flow Rate FiO2 09/01/24 10:23 92 16 109/64 (79) 94 09/01/24 08:00 104 16 173/93 (119) 97 09/01/24 07:46 97 09/01/24 07:45 101 16 94 Room Air* 0 21 09/01/24 07:45 98.1 101 16 180/101 (127) 94 98.1 09/01/24 07:35 98.1 94 16 155/99 (117) 100 Lab Test 09/01/24 08:17 09/01/24 07:52 Range/Units POC Glucose 345 H 70-106 mg/dl White Blood Count 7.6 4.4-10.8 10^3/uL Red Blood Count 4.07 L 4.5-5.90 10^6/uL Hemoglobin 11.5 L 13.5-17.5 g/dL Hematocrit 35.5 L 41.0-53.0 % Mean Corpuscular Volume 87.2 80.0-100.0 fL Mean Corpuscular Hemoglobin 28.3 28.0-32.0 pg Mean Corpuscular Hemoglobin Concent 32.5 32.0-36.0 g/dL Red Cell Distribution Width 16.9 H 11.8-14.3 % Platelet Count 262 140-450 10^3/uL Mean Platelet Volume 7.8 6.9-10.8 fL Neutrophils (%) (Auto) 55.4 37.0-80.0 % Lymphocytes (%) (Auto) 27.9 10.0-50.0 % Monocytes (%) (Auto) 8.6 0.0-12.0 % Eosinophils (%) (Auto) 6.9 0.0-7.0 % Basophils (%) (Auto) 1.2 0.0-2.0 % Neutrophils # (Auto) 4.2 1.6-8.6 10 ^3/uL Lymphocytes # (Auto) 2.1 0.4-5.4 10 ^3/uL Monocytes # (Auto) 0.7 0-1.3 10 ^3/uL Eosinophils # (Auto) 0.5 0-0.8 10 ^3/uL Basophils # (Auto) 0.1 0-0.2 10 ^3/uL Nucleated Red Blood Cells 0.1 % Sodium Level 138 136-145 mmol/L Potassium Level 4.6 3.5-5.1 mmol/L Chloride Level 109 H 98-107 mmol/L Carbon Dioxide Level 23 20-31 mmol/L Anion Gap 6 5-15 Blood Urea Nitrogen 31 H 9-23 mg/dL Creatinine 1.91 H 0.700-1.30 mg/dL Glomerular Filtration Rate Calc 38 >90 mL/min BUN/Creatinine Ratio 16.2 10.0-20.0 Serum Glucose 419 *H 74-106 mg/dL Calcium Level 9.2 8.7-10.4 mg/dL Plasma/Serum Blood Alcohol < 3.0 <10 mg/dL Current Medications Medications (Trade) Dose Ordered Sig/Guadalupe Route Start Time Stop Time Status Last Admin Sodium Chloride 1,000 ml @ 1,000 mls/hr Q1H ONCE IV 09/01/24 07:45 09/01/24 08:44 DC 09/01/24 08:13 Insulin Human Regular (InsuLIN R) 8 units ONCE ONCE IV 09/01/24 08:00 09/01/24 08:01 DC 09/01/24 08:18 Time of 1ST Reevaluation: 08:05 Reevaluation 1ST: Unchanged Time of 2ND Reevaluation: 10:53 Reevaluation 2ND: Improved Patient Education/Counseling: Diagnosis, Treatment, Prognosis, Need For Follow Up Family Education/Counseling: No Family Present Additional Information I reviewed the following notes from patient's past medical encounters: [facility] ER 07/05/2024, 08/05/2023, 06/08/2022; [facility] discharge 08/04/2024, 06/22/2024, 04/25/2023 The following tests were ordered, and results were reviewed by me: EKG, CBC, BMP, urine ethanol, drug screen Additional Information was gathered from interviewing the following independent historians: EMS I reviewed and agreed with the following test results read by other providers: admitting safety and health consultant I discussed treatment and results with medical personnel. pt did not realize that he was passed out and had urinary incontinence. he thought he was sleeping, but was not aware that staff at the facility was not able to wake him. his BS is uncontrolled, but he is not in DKA. he is homeless and unlikely to comply with treatments. with his uncontrolled BS, the syncope, h e is likely to decompensate, so will need to be admitted to workup the syncope and control his BS Departure 1 Departure Time of Disposition: 10:56 Impression: Primary Impression: Syncope Qualified Codes: R55 - Syncope and collapse Additional Impressions: Urinary incontinence Qualified Codes: R32 - Unspecified urinary incontinence Hyperglycemia Disposition: ADMITTED INPATIENT Admit to: Tele Condition: Stable Discharged With: Self Critical Care Note Critical Care Time?: Yes (55 min-critical care time only) Critical care comment: Due to concerns for patients condition deteriorating, the care required my highest level of attention and readiness to intervene. I assessed the patient, reviewed the medical records, ordered the appropriate tests and treatments, then reassessed for results and responsiveness. I communicated with medical personnel and consultants and formulated a plan of care. Total critical care time excludes any procedures Stability Stability form required: No Heart Score Heart Score: Heart Score Response (Comments) Value History N/A 0 EKG N/A 0 Age N/A 0 Risk Factors N/A 0 Troponin N/A 0 Total 0 I personally scribed for MOE CHURCHILL MD ([email or web address]) on 09/01/24 at 07:45. Electronically submitted by Jessica Umaña ([email or web address]). MOE CHURCHILL MD Sep 01, 2024 07:45
[2024-09-01 08:11] LABS: Basophils # (auto) 0.1 10 ^3/uL (0-0.2); Basophils % (auto) 1.2 % (0.0-2.0); Eosinophils # (auto) 0.5 10 ^3/uL (0-0.8); Eosinophils % (auto) 6.9 % (0.0-7.0); Hematocrit 35.5 % (41.0-53.0); Hemoglobin 11.5 g/dL (13.5-17.5); Lymphocytes # (auto) 2.1 10 ^3/uL (0.4-5.4); Lymphocytes % (auto) 27.9 % (10.0-50.0); Mean Corpuscular Hemoglobin 28.3 pg (28.0-32.0); Mean Corpuscular Hgb Conc. 32.5 g/dL (32.0-36.0); Mean Corpuscular Volume 87.2 fL (80.0-100.0); Monocytes # (auto) 0.7 10 ^3/uL (0-1.3); Monocytes % (auto) 8.6 % (0.0-12.0); Neutrophils # (auto) 4.2 10 ^3/uL (1.6-8.6); Neutrophils % (auto) 55.4 % (37.0-80.0); Nucleated Red Blood Cells % 0.1 %; Platelet Count (auto) 262 10^3/uL (140-450); Potassium 4.6 mmol/L (3.5-5.1); Red Blood Cells 4.07 10^6/uL (4.5-5.90); Red Cell Distribution Width 16.9 % (11.8-14.3); Sodium 138 mmol/L (136-145); White Blood Cell 7.6 10^3/uL (4.4-10.8)
[2024-09-01 08:12] LABS: Anion Gap 6 (5-15); Carbon Dioxide 23 mmol/L (20-31)
[2024-09-01 08:13] LABS: Calcium 9.2 mg/dL (8.7-10.4)
[2024-09-01] MEDS: SODIUM CHLORIDE 0.9% 1,000 ML IV ONE (08:13)
[2024-09-01 08:17] LABS: BUN/Creatinine Ratio 16.2 (10.0-20.0)
[2024-09-01] MEDS: InsuLIN REG 1unit/0.01ml Soln (100units/ml) IV ONE (08:18)
[2024-09-01 08:22] LABS: Chloride 109 mmol/L (98-107)
[2024-09-01 08:23] LABS: Blood Alcohol < 3.0 mg/dL (<10); Blood Urea Nitrogen 31 mg/dL (9-23)
[2024-09-01 08:24] LABS: Glucose 419 mg/dL (74-106)
--- NOTE | 2024-09-01 11:20 | DVHHP2 ---
History of Present Illness Reason for Visit: Syncope History of Present Illness 69-year-old male past medical history diabetes hypertension hyperlipidemia CHF CKD pneumonia UTI Klebsiella ESBL questionable meth use in the past unknown surgical history due to patient not able to give much information chief complaint according to the ED records patient has a syncopal episode he is a homeless gentleman that was found unresponsive at the table inside of the restaurant where he had urinated on herself. They denied any seizure activity when they found him. He was found to have his glucose greater than 400 and he was brought in for evaluation. When evaluating patient's labs and imaging looks like insulin was given 8 units normal saline hemoglobin was 11.5 35.5 chloride was 109 creatinine was 1.91 and 31 glucose was four hundred nineteenth alcohol level was negative. With these findings we will admit patient for further workup and care no imaging was completed prior to admission we will order CT scan of the brain follow up results Past Medical History See HPI above Past Surgical History Unknown surgical history unable to assess due to current mental status Family History Unable to assess family history due to current mental status Past Social History Unable to assess social history due to current mental status Review of Systems Review of Systems Unable to assess ROS due to current mental status Allergies: Coded Allergies: NO KNOWN ALLERGIES (Unverified , 05/26/18) Exam Vital Signs Vital Signs Date Time Temp Pulse Resp B/P (MAP) Pulse Ox O2 Delivery O2 Flow Rate FiO2 09/01/24 10:23 92 16 109/64 (79) 94 09/01/24 07:45 Room Air* 0 21 09/01/24 07:45 98.1 98.1 General Appearance: Other (Arousable with painful stimuli) HEENT: Atraumatic, PERRLA, EOMI, Mucous membr. moist/pink, Other (Disheveled unkept in appearance) Respiratory: Clear to auscultation, Normal air movement Cardiovascular: Regular rate, Normal S1, Normal S2, No murmurs Abdominal: Normal bowel sounds, Soft, No tenderness, No hepatospenomegaly, No masses Extremities: No clubbing, No cyanosis, No edema Neuro: Other (Unable to assess neuro Toney due to uncooperative with the patient's not completely alert) Labs/Xrays I reviewed labs, imaging CT scan abdomen pelvis, EKG and all diagnostic studies on this patient from ED records and the medical chart Labs Test 09/01/24 08:17 09/01/24 07:52 Range/Units POC Glucose 345 H 70-106 mg/dl White Blood Count 7.6 4.4-10.8 10^3/uL Red Blood Count 4.07 L 4.5-5.90 10^6/uL Hemoglobin 11.5 L 13.5-17.5 g/dL Hematocrit 35.5 L 41.0-53.0 % Mean Corpuscular Volume 87.2 80.0-100.0 fL Mean Corpuscular Hemoglobin 28.3 28.0-32.0 pg Mean Corpuscular Hemoglobin Concent 32.5 32.0-36.0 g/dL Red Cell Distribution Width 16.9 H 11.8-14.3 % Platelet Count 262 140-450 10^3/uL Mean Platelet Volume 7.8 6.9-10.8 fL Neutrophils (%) (Auto) 55.4 37.0-80.0 % Lymphocytes (%) (Auto) 27.9 10.0-50.0 % Monocytes (%) (Auto) 8.6 0.0-12.0 % Eosinophils (%) (Auto) 6.9 0.0-7.0 % Basophils (%) (Auto) 1.2 0.0-2.0 % Neutrophils # (Auto) 4.2 1.6-8.6 10 ^3/uL Lymphocytes # (Auto) 2.1 0.4-5.4 10 ^3/uL Monocytes # (Auto) 0.7 0-1.3 10 ^3/uL Eosinophils # (Auto) 0.5 0-0.8 10 ^3/uL Basophils # (Auto) 0.1 0-0.2 10 ^3/uL Nucleated Red Blood Cells 0.1 % Sodium Level 138 136-145 mmol/L Potassium Level 4.6 3.5-5.1 mmol/L Chloride Level 109 H 98-107 mmol/L Carbon Dioxide Level 23 20-31 mmol/L Anion Gap 6 5-15 Blood Urea Nitrogen 31 H 9-23 mg/dL Creatinine 1.91 H 0.700-1.30 mg/dL Glomerular Filtration Rate Calc 38 >90 mL/min BUN/Creatinine Ratio 16.2 10.0-20.0 Serum Glucose 419 *H 74-106 mg/dL Calcium Level 9.2 8.7-10.4 mg/dL Plasma/Serum Blood Alcohol < 3.0 <10 mg/dL Assessment/Plan Assessment/Plan Acute syncopal episode unknown etiology could be from dehydration since patient was homeless ordered CT the brain fu results ordered echocardiogram ordered carotid Doppler ordered Orthostatic vital signs ordered IV fluids gentle hydration Fall precautions PT eval and treat ordered trop fu results consider cards consult fu recs etoh level normal Order UA since last admission patient had UTI Klebsiella ESBL follow up results acute elevation in crea likely related to chronic kidney disease at baseline ordered ivf hydration for now uncontrolled type 2 dm without dka ordered accucheck ac/hs with sliding scale ordered hemoglobin a1c chronic problems with continuation of medication htn hld chf no excerbation ckd pna uti klebsiella with esbl fen/ppx diet no gi ppx since no hx of gerds/gi bleed scd lovenox plan admit to tele for tele Plan discussed with: Other (Information gathered from ED records and the nursing staff) Date of Service: Sep 01, 2024 Billing Provider: GLADIS RENEE DNP Common Visit Codes: [id number] INP/OBS CARE (HIGH) GLADIS RENEE DNP Sep 01, 2024 11:20
[2024-09-01] MEDS ORDERED: DOCUSATE SOD 100 MG CAP PO PRN (13:00)
[2024-09-01] MEDS ORDERED: DEXTROSE (50%) 50ML SYRG IV PRN (13:00)
[2024-09-01] MEDS: SODIUM CHLORIDE 0.9% 1,000 ML IV SCH (13:00)
[2024-09-01] MEDS ORDERED: ONDANSETRON HCL 4 MG/2 ML VIAL IV PRN (13:00)
[2024-09-01] MEDS ORDERED: NITROGLYCERIN 0.4 MG SL TAB SL PRN (13:00)
[2024-09-01] MEDS ORDERED: MORPHINE SULFATE INJ 2 MG/ml SYRG IV PRN (13:00)
--- NOTE | 2024-09-01 13:29 | DVH ---
Procedure: CT HEAD WITHOUT CONTRAST Study Date and Requested Time: 09/01/2024 01:04 PM History: acute syncope Comparison: CT HEAD WITHOUT CONTRAST on DOS: 07/31/24, CT HEAD WITHOUT CONTRAST on DOS: 08/04/23, HEAD WITHOUT CONTRAST on DOS: 04/24/21 Dose: CTDI: 67.32 mGy DLP: 1326.27 mGycm Technique: Multiplanar images obtained through the brain without intravenous contrast. Findings: Pnao-[id number] diffuse brain atrophy. Moderate chronic small vessel ischemic changes. No hemorrhages, masses, mass effect, midline shift, herniation or cytotoxic edema following a large v ascular territory. No intra-axial or extra-axial fluid collections. No evidence of hydrocephalus. The basal cisterns are patent. Chronic focus of lacunar infarct within the left thalamus. The pituitary gland, sella and parasellar regions are unremarkable. The cerebellar tonsils are in nor mal position. The cerebellum is unremarkable. The orbits and globes are unremarkable. Chronic deformity of the right lamina papyracea. Minimal muco periosteal thickening of the inferior frontal sinuses and bilateral ethmoid air cells. Otherwise, Th e paranasal sinuses and mastoids are clear. There are no worrisome calvarial lesions. Impression: No evidence of acute intracranial abnormality.
[2024-09-01] MEDS: ENOXAPARIN SOD 40 MG/0.4 ML SYRINGE SC SCH (13:52)
[2024-09-01] MEDS: ACCU-CHEK COMFORT CURVE STRIP VI SCH (16:07)
[2024-09-01] MEDS: InsuLIN REG 1unit/0.01ml Soln (100units/ml) SC SCH (16:16)
[2024-09-01] MEDS: hydrALAZINE HCL 20 MG/ML VL IV PRN (16:59)
[2024-09-01 17:45] LABS: Creatinine, Urine 40.8 mg/dL (30.0-125.0)
[2024-09-01 17:46] LABS: Amphetamine Screen, Urine Pos (NEGATIVE); Barbiturate Scree,Urine Neg (NEGATIVE); Benzodiazephine Screen, Urine Neg (NEGATIVE); Cocaine Screen, Urine Neg (NEGATIVE)
[2024-09-01 17:47] LABS: Cannabinoid Screen, Urine Neg (NEGATIVE); Opiate Scree,Urine Neg (NEGATIVE); Phencyclidine Screen, Urine Neg (NEGATIVE)
--- NOTE | 2024-09-01 18:30 | ECG ---
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
--- NOTE | 2024-09-01 19:38 | DVHSR ---
APPROVED REPORT EXAM: Two-dimensional and M-mode echocardiogram with Doppler and color Doppler. Blood Pressure: 149/82 mmHg INDICATION eval for cardiac function RISK FACTORS Obesity: Height: 5'9, Weight: 158 DIMENSIONS LVDd4.1 (3.8-5.7cm)LA (2D)4.3 (1.9-4.0cm)Aortic Root3.7 (2.0-3.7cm) LVDs3.0 (2.5-4.0cm)LA (MM) (1.9-4.0cm)Aortic Cusp Exc2.1 (1.5-2.0cm) EF (%) 55.0 (55-70%)Rt. Atrium3.9 (1.9-4.0cm)Asc. Aorta3.7 cm IVSd1.3 (0.7-1.1cm)RV (D) (1.8-2.4cm) PWd1.2 (0.7-1.1cm) Mitral Valve MitralMitral Stenosis E wave0.53m/sMV Mean GR.mmHg A wave0.94m/sMV Peak GR.105mmHg E/A ratio0.62D MVAcm2 DECEL [id number] 1/2 Timems Aortic Valve Aortic ValveAortic Stenosis V11.05m/Dwayne Mean GR.5mmHg V21.35m/Dwayne Peak GR.7mmHg LVOT Diameter2.2 (1.8-2.4cm)Doppler AVA2.96cm2 LEFT VENTRICLE Normal left ventricular size. Wall thicknesscis mildly increased most prominent in the septum. Ejecti on fraction is normal and is estimated at 55-60%. No gross regional wall motion abnormalites but endo cardial definition is suboptimal. There is grade II iastolic function. E to E' ration is in normal ra nge. RIGHT VENTRICLE Normal size and systolic function. ATRIA Mildly dilated in size. Normal size. MITRAL VALVE Normal structure and function. PULMONIC VALVE Normal structure and function. TRICUSPID VALVE Normal structure and function. PA systolic pressure not adequately estimated. AORTIC VALVE Normal structure and function. GREAT VESSELS Aortic root is of normal size. PERICARDIAL EFFUSION No pericardial effusion. IVC is of normal size and collapses normal with inspiration. Conclusion Normal left ventricular size and systolic function. Mild left ventricular hypertrophy. Grade II diastolic dysfunction. Normal right ventricular size and systolic function. No hemodynamically significant valvular disease. PA systolic pressure not adequately estimated.
[2024-09-01 20:00] VITALS: PULSE 111; RESP 22; O2SAT 96
[2024-09-01 22:41] VITALS: BP 125/74; PULSE 98; RESP 14; TEMP 98.4; O2SAT 96
[2024-09-02] VITALS (8 sets, daily range): BP systolic 124–168; BP diastolic 71–97; PULSE 86–102; RESP 13–20; TEMP 98–98.6; O2SAT 95–98
--- NOTE | 2024-09-02 06:32 | DVH ---
Carotid Duplex Date: 09/01/2024 01:27 PM Clinical History: Eval for syncope dizziness Comparison: None Technique: Duplex Doppler evaluation of the extracranial carotid and vertebral arteries including color Doppler and spectral/pulsed waveform analysis was performed. Findings: RIGHT SIDE: The peak systolic velocities are 69.6 cm/s in the distal CCA and 63.6 cm/s in the proximal ICA.The IC A/CCA ratio is 1.1. The external carotid artery is patent with peak systolic velocity of point cm/s proximally. There is appropriate antegrade flow in the right vertebral artery. LEFT SIDE: The peak systolic velocities are 81 cm/s in the distal CCA and 66 cm/s in the proximal ICA.. The ICA /CCA ratio is 0.7. The external carotid artery is patent with peak systolic velocity of 102 cm/s proximally. There is appropriate antegrade flow in the left vertebral artery. IMPRESSION: 1. No hemodynamically significant stenosis noted in the right carotid system. 2. No hemodynamically significant stenosis noted in the left carotid system. 3. Reference: Radiology 2003; 229:340-346
[2024-09-02 07:29] LABS: Basophils # (auto) 0.1 10 ^3/uL (0-0.2); Eosinophils # (auto) 0.4 10 ^3/uL (0-0.8); Eosinophils % (auto) 3.8 % (0.0-7.0); Hematocrit 34.4 % (41.0-53.0); Hemoglobin 11.3 g/dL (13.5-17.5); Lymphocytes # (auto) 2.3 10 ^3/uL (0.4-5.4); Lymphocytes % (auto) 23.9 % (10.0-50.0); Mean Corpuscular Hemoglobin 28.4 pg (28.0-32.0); Mean Corpuscular Hgb Conc. 32.7 g/dL (32.0-36.0); Mean Corpuscular Volume 86.6 fL (80.0-100.0); Monocytes # (auto) 0.5 10 ^3/uL (0-1.3); Monocytes % (auto) 5.7 % (0.0-12.0); Neutrophils # (auto) 6.3 10 ^3/uL (1.6-8.6); Neutrophils % (auto) 65.6 % (37.0-80.0); Platelet Count (auto) 286 10^3/uL (140-450); Red Blood Cells 3.98 10^6/uL (4.5-5.90); Red Cell Distribution Width 16.7 % (11.8-14.3); White Blood Cell 9.6 10^3/uL (4.4-10.8)
[2024-09-02 07:32] LABS: Alanine Aminotransferase 13 U/L (7-40); Albumin 3.5 g/dL (3.2-4.8); Anion Gap 8 (5-15); Aspartate Aminotransferase 17 U/L (13-40); BUN/Creatinine Ratio 18.9 (10.0-20.0); Bilirubin, Total 1.1 mg/dL (0.2-1.0); Calcium 9.3 mg/dL (8.7-10.4); Carbon Dioxide 22 mmol/L (20-31); Sodium 141 mmol/L (136-145); Total Protein 6.7 g/dL (5.7-8.2)
[2024-09-02 07:40] LABS: Alkaline Phosphatase 221 U/L (46-116); Blood Urea Nitrogen 30 mg/dL (9-23); Chloride 111 mmol/L (98-107); Glucose 124 mg/dL (74-106)
--- NOTE | 2024-09-02 10:28 | DVHPN2 ---
Subjective c/o weakness Changes from previous H/P or p: Changes Objective Vitals Vital Signs Date Time Temp Pulse Resp B/P (MAP) Pulse Ox O2 Delivery O2 Flow Rate FiO2 09/02/24 09:00 98.6 98 20 124/75 (91) 95 98.6 09/01/24 22:41 Nasal Cannula* 2 28 Intake/Output Intake and Output 09/02/24 07:00 Intake Total 1300 ml Balance 1300 ml Intake Oral 500 ml IV Total 800 ml # Voids 1 # Bowel Movements 1 General Appearance: Alert, Oriented X3, Cooperative, No acute distress Lungs: Clear to auscultation, Normal air movement Cardiovascular: Regular rate, Normal S1, Normal S2 Extremities: No edema Medications Current Medications Medications Dose Ordered Sig/Guadalupe Route Start Time Stop Time Status Last Admin Dose Admin Sodium Chloride 1,000 ml @ 100 mls/hr Q10H IV 09/01/24 13:00 09/01/24 23:00 100 MLS/HR Ondansetron HCl 4 mg Q4HP PRN IV 09/01/24 13:00 Docusate Sodium 100 mg BIDPRN PRN PO 09/01/24 13:00 Morphine Sulfate 2 mg Q4HPRN PRN IV 09/01/24 13:00 Enoxaparin Sodium 40 mg DAILY SC 09/01/24 13:00 09/01/24 13:52 40 MG Nitroglycerin 0.4 mg Q5MINP PRN SL 09/01/24 13:00 Diagnostic Test (Pha) 1 strip IQ4HR 09/01/24 16:00 09/02/24 04:00 1 STRIP Insulin Human Regular IQ4HR SC 09/01/24 16:00 09/01/24 16:16 2 UNITS Dextrose 50 ml UD PRN IV 09/01/24 13:00 Hydralazine HCl 10 mg Q6HP PRN IV 09/01/24 13:00 09/01/24 16:59 10 MG Laboratory Results Laboratory Tests 09/02/24 05:59 Chemistry Test 09/02/24 05:59 Albumin 3.5 g/dL (3.2-4.8) Calcium Level 9.3 mg/dL (8.7-10.4) Total Protein 6.7 g/dL (5.7-8.2) LFT Test 09/02/24 05:59 Alanine Aminotransferase (ALT) 13 U/L (7-40) Alkaline Phosphatase 221 U/L (46-116) H Aspartate Amino Transferase (AST) 17 U/L (13-40) Total Bilirubin 1.1 mg/dL (0.2-1.0) H Urinalysis Test 09/01/24 17:12 Urine Creatinine 40.80 mg/dL (30.0-125.0) Urine Sodium 104 mmol/L (40-220) Assessment/Plan Assessment/Plan Generalized weakness DM2 CKD HTN Mixed hyperlipidemia Homeless h/o CHF PLAN: PT eval Accuchecks DC IV fluids Social workers consult Plan discussed with: Patient My Orders Orders - VILLA RAMOS MD Procedure Category Date Status Time Pt Request For Service PT 09/02/24 Logged 09:08 Date of Service: Sep 02, 2024 Billing Provider: VILLA RAMOS MD Common Visit Codes: NOT BILLABLE VILLA RAMOS MD Sep 02, 2024 10:28
[2024-09-02] MEDS: GABAPENTIN 300 MG CAP PO SCH (21:03)
[2024-09-02] MEDS: ATORVASTATIN 20 MG TAB PO SCH (21:03)
[2024-09-02] MEDS: CARVEDILOL 3.125 MG TAB PO SCH (21:04)
[2024-09-02] MEDS: ACCU-CHEK COMFORT CURVE STRIP VI SCH (21:05)
[2024-09-02] MEDS: InsuLIN REG 1unit/0.01ml Soln (100units/ml) SC SCH (21:18)
[2024-09-03] VITALS (9 sets, daily range): BP systolic 64–126; BP diastolic 34–71; PULSE 78–86; RESP 17–19; TEMP 97.6–98.1; O2SAT 93–100
--- NOTE | 2024-09-03 09:05 | DVHPN2 ---
Subjective c/o weakness Changes from previous H/P or p: Changes Objective Vitals Vital Signs Date Time Temp Pulse Resp B/P (MAP) Pulse Ox O2 Delivery O2 Flow Rate FiO2 09/03/24 08:55 97.9 86 17 119/71 (87) 96 97.9 09/02/24 20:00 Room Air* 0 21 Intake/Output Intake and Output 09/03/24 07:00 Intake Total 1405 ml Balance 1405 ml Intake Oral 1405 ml # Voids 4 # Bowel Movements 2 General Appearance: Alert, Oriented X3, Cooperative, No acute distress Lungs: Clear to auscultation, Normal air movement Cardiovascular: Regular rate, Normal S1, Normal S2 Extremities: No edema Medications Current Medications Medications Dose Ordered Sig/Gu[place]upe Route Start Time Stop Time Status Last Admin Dose Admin Ondansetron HCl 4 mg Q4HP PRN IV 09/01/24 13:00 Docusate Sodium 100 mg BIDPRN PRN PO 09/01/24 13:00 Morphine Sulfate 2 mg Q4HPRN PRN IV 09/01/24 13:00 Enoxaparin Sodium 40 mg DAILY SC 09/01/24 13:00 09/01/24 13:52 40 MG Nitroglycerin 0.4 mg Q5MINP PRN SL 09/01/24 13:00 Dextrose 50 ml UD PRN IV 09/01/24 13:00 Hydralazine HCl 10 mg Q6HP PRN IV 09/01/24 13:00 09/02/24 21:48 10 MG Diagnostic Test (Pha) 1 strip ACHS 09/02/24 22:00 09/03/24 06:01 1 STRIP Insulin Human Regular ACHS SC 09/02/24 22:00 09/03/24 06:09 3 UNITS Famotidine 20 mg DAILY PO 09/03/24 10:00 Carvedilol 3.125 mg Q12HR PO 09/02/24 22:00 09/02/24 21:04 3.125 MG Atorvastatin Calcium 20 mg HS PO 09/02/24 22:00 09/02/24 21:03 20 MG Gabapentin 300 mg TID PO 09/02/24 22:00 09/03/24 06:01 300 MG Hydralazine HCl 10 mg Q6HP PRN IV 09/03/24 09:00 UNV Laboratory Results Laboratory Tests 09/02/24 05:59 Urinalysis Test 09/01/24 17:12 Urine Creatinine 40.80 mg/dL (30.0-125.0) Urine Sodium 104 mmol/L (40-220) Assessment/Plan Assessment/Plan Generalized weakness DM2 CKD HTN Mixed hyperlipidemia Homeless h/o CHF PLAN: 09/02/24: PT eval Accuchecks DC IV fluids Social workers consult 09/03/24: DC IV fluids Hydralazine prn Coreg Lipitor Physical therapy is pending DC Lovenox Aspirin 81 mg qd Plan discussed with: Patient My Orders Orders - VILLA RAMOS MD Procedure Category Date Status Time Pt Request For Service PT 09/02/24 Logged 09:08 Glucose Blood PHA 09/02/24 In Process (Accu-Chek Comfort 22:00 Insulin R (Human) PHA 09/02/24 In Process (Insulin R) 22:00 Famotidine Tablet PHA 09/03/24 In Process (Pepcid Tablet) 10:00 Carvedilol Tablet PHA 09/02/24 In Process (Coreg Tablet) 22:00 Atorvastatin (Lipitor) PHA 09/02/24 In Process 22:00 Gabapentin Capsule PHA 09/02/24 In Process (Neurontin Capsule) 22:00 Cardiac DIET 09/02/24 Transmitted Diet-2gna,Lofat,Lochol Dinner Hydralazine Injection PHA 09/03/24 Logged (Apresoline Inject 09:00 Complete Blood Count LAB 09/04/24 Verified 04:00 Comprehensive LAB 09/04/24 Verified Metabolic Panel 04:00 Lipid Panel LAB 09/04/24 Verified 04:00 Magnesium LAB 09/04/24 Verified 04:00 Date of Service: Sep 03, 2024 Billing Provider: VILLA RAMOS MD Common Visit Codes: NOT BILLABLE VILLA RAMOS MD Sep 03, 2024 09:04
[2024-09-03] MEDS: FAMOTIDINE 20 MG TAB PO SCH (09:51)
[2024-09-03] MEDS: ASPirin 81 mg TAB PO SCH (09:51)
[2024-09-03] MEDS: SODIUM CHLORIDE 0.9% 1,000 ML IV SCH (17:35)
[2024-09-04] VITALS (8 sets, daily range): BP systolic 99–154; BP diastolic 57–83; PULSE 73–81; RESP 18–20; TEMP 97.5–98; O2SAT 95–97
[2024-09-04 06:10] LABS: Basophils # (auto) 0.1 10 ^3/uL (0-0.2); Basophils % (auto) 0.9 % (0.0-2.0); Eosinophils # (auto) 0.4 10 ^3/uL (0-0.8); Eosinophils % (auto) 5.5 % (0.0-7.0); Hematocrit 33.5 % (41.0-53.0); Hemoglobin 10.9 g/dL (13.5-17.5); Lymphocytes # (auto) 2.3 10 ^3/uL (0.4-5.4); Lymphocytes % (auto) 29.6 % (10.0-50.0); Mean Corpuscular Hemoglobin 28.2 pg (28.0-32.0); Mean Corpuscular Hgb Conc. 32.7 g/dL (32.0-36.0); Mean Corpuscular Volume 86.3 fL (80.0-100.0); Monocytes # (auto) 0.6 10 ^3/uL (0-1.3); Monocytes % (auto) 7.8 % (0.0-12.0); Neutrophils # (auto) 4.4 10 ^3/uL (1.6-8.6); Neutrophils % (auto) 56.2 % (37.0-80.0); Platelet Count (auto) 246 10^3/uL (140-450); Red Blood Cells 3.87 10^6/uL (4.5-5.90); White Blood Cell 7.8 10^3/uL (4.4-10.8)
[2024-09-04 06:26] LABS: Alanine Aminotransferase 11 U/L (7-40); Albumin 3.4 g/dL (3.2-4.8); Anion Gap 6 (5-15); Aspartate Aminotransferase 16 U/L (13-40); BUN/Creatinine Ratio 18.7 (10.0-20.0); Bilirubin, Total 0.5 mg/dL (0.2-1.0); Calcium 9.1 mg/dL (8.7-10.4); Carbon Dioxide 24 mmol/L (20-31); Chloride 106 mmol/L (98-107); Cholesterol 119 mg/dL (< 200); HDL Cholesterol 47 mg/dL (40-59); LDL Cholesterol 56 mg/dL (< 100); Magnesium 1.9 mg/dL (1.6-2.6); Potassium 4.9 mmol/L (3.5-5.1); Sodium 136 mmol/L (136-145); Total Protein 6.4 g/dL (5.7-8.2); Triglycerides 102 mg/dL (< 150)
[2024-09-04 06:39] LABS: Alkaline Phosphatase 190 U/L (46-116); Blood Urea Nitrogen 36 mg/dL (9-23); Glucose 234 mg/dL (74-106)
--- NOTE | 2024-09-04 11:18 | DVHPN2 ---
Subjective no new complaint Changes from previous H/P or p: Changes Objective Vitals Vital Signs Date Time Temp Pulse Resp B/P (MAP) Pulse Ox O2 Delivery O2 Flow Rate FiO2 09/04/24 08:55 98.0 81 18 135/82 (99) 97 98.0 09/04/24 07:30 Room Air* 0 21 Intake/Output Intake and Output 09/04/24 07:00 Intake Total 1889 ml Output Total 1475 ml Balance 414 ml Intake Oral 1889 ml Output Urine Total 1475 ml # Voids 2 General Appearance: Alert, Oriented X3, Cooperative, No acute distress Lungs: Clear to auscultation, Normal air movement Cardiovascular: Regular rate, Normal S1, Normal S2 Extremities: No edema Medications Current Medications Medications Dose Ordered Sig/Guadalupe Route Start Time Stop Time Status Last Admin Dose Admin Ondansetron HCl 4 mg Q4HP PRN IV 09/01/24 13:00 Docusate Sodium 100 mg BIDPRN PRN PO 09/01/24 13:00 Morphine Sulfate 2 mg Q4HPRN PRN IV 09/01/24 13:00 Nitroglycerin 0.4 mg Q5MINP PRN SL 09/01/24 13:00 Dextrose 50 ml UD PRN IV 09/01/24 13:00 Diagnostic Test (Pha) 1 strip ACHS 09/02/24 22:00 09/04/24 06:02 1 STRIP Insulin Human Regular ACHS SC 09/02/24 22:00 09/04/24 06:11 4 UNITS Famotidine 20 mg DAILY PO 09/03/24 10:00 09/04/24 08:07 20 MG Carvedilol 3.125 mg Q12HR PO 09/02/24 22:00 09/04/24 08:09 3.125 MG Atorvastatin Calcium 20 mg HS PO 09/02/24 22:00 09/03/24 21:36 20 MG Gabapentin 300 mg TID PO 09/02/24 22:00 09/04/24 06:02 300 MG Hydralazine HCl 10 mg Q6HP PRN IV 09/03/24 09:00 Aspirin 81 mg DAILY PO 09/03/24 10:00 09/04/24 08:07 81 MG Sodium Chloride 1,000 ml @ 75 mls/hr [id number] IV 09/03/24 16:15 09/03/24 17:35 75 MLS/HR Laboratory Results Laboratory Tests 09/04/24 05:26 Chemistry Test 09/04/24 05:26 Albumin 3.4 g/dL (3.2-4.8) Calcium Level 9.1 mg/dL (8.7-10.4) Magnesium Level 1.9 mg/dL (1.6-2.6) Total Protein 6.4 g/dL (5.7-8.2) Lipid panel Test 09/04/24 05:26 Cholesterol Level 119 mg/dL (< 200) HDL Cholesterol 47 mg/dL (40-59) Triglycerides Level 102 mg/dL (< 150) LFT Test 09/04/24 05:26 Alanine Aminotransferase (ALT) 11 U/L (7-40) Alkaline Phosphatase 190 U/L (46-116) H Aspartate Amino Transferase (AST) 16 U/L (13-40) Total Bilirubin 0.5 mg/dL (0.2-1.0) Urinalysis Test 09/01/24 17:12 Urine Creatinine 40.80 mg/dL (30.0-125.0) Urine Sodium 104 mmol/L (40-220) Assessment/Plan Assessment/Plan Generalized weakness DM2 CKD HTN Mixed hyperlipidemia Homeless h/o CHF PLAN: 09/02/24: PT eval Accuchecks DC IV fluids Social workers consult 09/03/24: DC IV fluids Hydralazine prn Coreg Lipitor Physical therapy is pending DC Lovenox Aspirin 81 mg qd 09/04/2024: Continue IV fluids since he is orthostatic Generalized weakness: Physical therapy recommended SNF Continue aspirin and Lipitor and Coreg Consult social Service for arrangement for SNF for physical therapy Plan discussed with: Patient My Orders Orders - VILLA RAMOS MD Procedure Category Date Status Time Sodium Chloride 0.9% PHA 09/03/24 In Process 16:15 Date of Service: Sep 04, 2024 Billing Provider: VILLA RAMOS MD Common Visit Codes: NOT BILLABLE VILLA RAMOS MD Sep 04, 2024 11:18
[2024-09-04] MEDS: hydrALAZINE HCL 20 MG/ML VL IV PRN (14:02)
[2024-09-05] VITALS (8 sets, daily range): BP systolic 104–153; BP diastolic 52–85; PULSE 72–78; RESP 16–19; TEMP 97.6–98.9; O2SAT 92–97
[2024-09-05 09:11] LABS: Hepatitis B Surface Antigen Negative (Negative)
[2024-09-05 09:13] LABS: Hepatitis C Antibody Reactive (Negative)
[2024-09-06] VITALS (8 sets, daily range): BP systolic 136–176; BP diastolic 71–96; PULSE 69–78; RESP 16–18; TEMP 98.1–98.3; O2SAT 96–100
--- NOTE | 2024-09-06 13:40 | DVHPN2 ---
Reviewed: Care Plan, H&P, Labs, Medications, Previous Orders, Radiology Changes from previous H/P or p: No Changes Objective Vitals Vital Signs Date Time Temp Pulse Resp B/P (MAP) Pulse Ox O2 Delivery O2 Flow Rate FiO2 09/06/24 12:46 98.2 69 17 147/90 (109) 98 98.2 09/06/24 07:56 Room Air* 0 21 Intake/Output Intake and Output 09/06/24 07:00 Intake Total 3670 ml Output Total 1525 ml Balance 2145 ml Intake Oral 2770 ml IV Total 900 ml Output Urine Total 1525 ml # Bowel Movements 1 General Appearance: Alert, Oriented X3, Cooperative, No acute distress Lungs: Clear to auscultation, Normal air movement Cardiovascular: Regular rate, Normal S1, Normal S2 Extremities: No edema Medications Current Medications Medications Dose Ordered Sig/Gu[place]upe Route Start Time Stop Time Status Last Admin Dose Admin Ondansetron HCl 4 mg Q4HP PRN IV 09/01/24 13:00 Docusate Sodium 100 mg BIDPRN PRN PO 09/01/24 13:00 Morphine Sulfate 2 mg Q4HPRN PRN IV 09/01/24 13:00 Nitroglycerin 0.4 mg Q5MINP PRN SL 09/01/24 13:00 Dextrose 50 ml UD PRN IV 09/01/24 13:00 Diagnostic Test (Pha) 1 strip ACHS 09/02/24 22:00 09/06/24 11:14 1 STRIP Insulin Human Regular ACHS SC 09/02/24 22:00 09/06/24 11:15 3 UNITS Famotidine 20 mg DAILY PO 09/03/24 10:00 09/06/24 09:32 20 MG Carvedilol 3.125 mg Q12HR PO 09/02/24 22:00 09/06/24 09:31 3.125 MG Atorvastatin Calcium 20 mg HS PO 09/02/24 22:00 09/05/24 21:15 20 MG Gabapentin 300 mg TID PO 09/02/24 22:00 09/06/24 06:20 300 MG Hydralazine HCl 10 mg Q6HP PRN IV 09/03/24 09:00 09/04/24 14:02 10 MG Aspirin 81 mg DAILY PO 09/03/24 10:00 09/06/24 09:31 81 MG Sodium Chloride 1,000 ml @ 75 mls/hr [id number] IV 09/03/24 16:15 09/06/24 11:13 75 MLS/HR Laboratory Results Laboratory Tests 09/04/24 05:26 Urinalysis Test 09/01/24 17:12 Urine Creatinine 40.80 mg/dL (30.0-125.0) Urine Sodium 104 mmol/L (40-220) Labs and/or images reviewed: Labs reviewed by me, Image(s) reviewed by me Assessment/Plan Assessment/Plan Covering for Dr. Hargrove Generalized weakness DM2 CKD HTN Mixed hyperlipidemia Homeless h/o CHF Continue Current management Plan discussed with: Patient Date of Service: Sep 06, 2024 Billing Provider: ISHAN JOHNSON MD Common Visit Codes: [id number] INP/OBS CARE(HIGH) ISHAN JOHNSON MD Sep 06, 2024 13:40
[2024-09-07] VITALS (9 sets, daily range): BP systolic 97–163; BP diastolic 49–91; PULSE 75–80; RESP 16–20; TEMP 97.5–98.6; O2SAT 93–98
--- NOTE | 2024-09-07 09:47 | DVHPN2 ---
Subjective no new complaint Reviewed: Care Plan, H&P, Labs, Medications, Previous Orders, Radiology Changes from previous H/P or p: Changes Objective Vitals Vital Signs Date Time Temp Pulse Resp B/P (MAP) Pulse Ox O2 Delivery O2 Flow Rate FiO2 09/07/24 09:30 78 116/66 09/07/24 05:00 98.1 18 96 98.1 09/06/24 20:00 Room Air* 0 21 Intake/Output Intake and Output 09/07/24 07:00 Intake Total 2100 ml Output Total 1825 ml Balance 275 ml Intake Oral 1200 ml IV Total 900 ml Output Urine Total 1825 ml # Voids 6 General Appearance: Alert, Oriented X3, Cooperative, No acute distress Lungs: Clear to auscultation, Normal air movement Cardiovascular: Regular rate, Normal S1, Normal S2 Extremities: No edema Medications Current Medications Medications Dose Ordered Sig/Gu[place]upe Route Start Time Stop Time Status Last Admin Dose Admin Ondansetron HCl 4 mg Q4HP PRN IV 09/01/24 13:00 Docusate Sodium 100 mg BIDPRN PRN PO 09/01/24 13:00 Morphine Sulfate 2 mg Q4HPRN PRN IV 09/01/24 13:00 Nitroglycerin 0.4 mg Q5MINP PRN SL 09/01/24 13:00 Dextrose 50 ml UD PRN IV 09/01/24 13:00 Diagnostic Test (Pha) 1 strip ACHS 09/02/24 22:00 09/07/24 05:30 1 STRIP Insulin Human Regular ACHS SC 09/02/24 22:00 09/07/24 05:35 4 UNITS Famotidine 20 mg DAILY PO 09/03/24 10:00 09/07/24 09:26 20 MG Carvedilol 3.125 mg Q12HR PO 09/02/24 22:00 09/07/24 09:30 3.125 MG Atorvastatin Calcium 20 mg HS PO 09/02/24 22:00 09/06/24 21:11 20 MG Gabapentin 300 mg TID PO 09/02/24 22:00 09/07/24 05:30 300 MG Hydralazine HCl 10 mg Q6HP PRN IV 09/03/24 09:00 09/07/24 05:51 10 MG Aspirin 81 mg DAILY PO 09/03/24 10:00 09/07/24 09:25 81 MG Sodium Chloride 1,000 ml @ 75 mls/hr [id number] IV 09/03/24 16:15 09/07/24 00:15 75 MLS/HR Laboratory Results Laboratory Tests 09/04/24 05:26 Urinalysis Test 09/01/24 17:12 Urine Creatinine 40.80 mg/dL (30.0-125.0) Urine Sodium 104 mmol/L (40-220) Assessment/Plan Assessment/Plan Generalized weakness DM2 CKD HTN Mixed hyperlipidemia Homeless h/o CHF PLAN: 09/02/24: PT rosa Burton DC IV fluids Social workers consult 09/03/24: DC IV fluids Hydralazine prn Coreg Lipitor Physical therapy is pending DC Lovenox Aspirin 81 mg qd 09/04/2024: Continue IV fluids since he is orthostatic Generalized weakness: Physical therapy recommended SNF Continue aspirin and Lipitor and Coreg Consult social Service for arrangement for SNF for physical therapy 09/07/2024: Continue IV fluids Continue physical therapy Discharge planning once he is ambulating He can not go to a SNF We will have to discharged home or to a custodial but he says he has no where to go except to some relatives in [place] Plan discussed with: Patient Date of Service: Sep 07, 2024 Billing Provider: VILLA RAMOS MD Common Visit Codes: NOT BILLABLE VILLA RAMOS MD Sep 07, 2024 09:47
[2024-09-08 01:00] VITALS: BP 106/54; PULSE 81; RESP 20; TEMP 97.5; O2SAT 93
[2024-09-08 05:00] VITALS: BP 106/55; PULSE 75; RESP 20; TEMP 98; O2SAT 90
[2024-09-08 08:00] VITALS: PULSE 74; RESP 17; O2SAT 95
[2024-09-08 09:00] VITALS: BP 132/77; PULSE 71; RESP 20; TEMP 98.6; O2SAT 95
--- NOTE | 2024-09-08 11:24 | DVHDS2 ---
Discharge Summary Date of Admission Sep 01, 2024 at 12:54 Date of Discharge: Sep 08, 2024 Labs/Diagnostic Data: Laboratory Results Test 09/08/24 05:28 09/04/24 05:26 09/02/24 05:59 09/01/24 20:45 POC Glucose 189 mg/dl (70-106) White Blood Count 7.8 10^3/uL (4.4-10.8) Red Blood Count 3.87 10^6/uL (4.5-5.90) Hemoglobin 10.9 g/dL (13.5-17.5) Hematocrit 33.5 % (41.0-53.0) Mean Corpuscular Volume 86.3 fL (80.0-100.0) Mean Corpuscular Hemoglobin 28.2 pg (28.0-32.0) Mean Corpuscular Hemoglobin Concent 32.7 g/dL (32.0-36.0) Red Cell Distribution Width 16.0 % (11.8-14.3) Platelet Count 246 10^3/uL (140-450) Mean Platelet Volume 7.7 fL (6.9-10.8) Neutrophils (%) (Auto) 56.2 % (37.0-80.0) Lymphocytes (%) (Auto) 29.6 % (10.0-50.0) Monocytes (%) (Auto) 7.8 % (0.0-12.0) Eosinophils (%) (Auto) 5.5 % (0.0-7.0) Basophils (%) (Auto) 0.9 % (0.0-2.0) Neutrophils # (Auto) 4.4 10 ^3/uL (1.6-8.6) Lymphocytes # (Auto) 2.3 10 ^3/uL (0.4-5.4) Monocytes # (Auto) 0.6 10 ^3/uL (0-1.3) Eosinophils # (Auto) 0.4 10 ^3/uL (0-0.8) Basophils # (Auto) 0.1 10 ^3/uL (0-0.2) Nucleated Red Blood Cells 0.0 % Sodium Level 136 mmol/L (136-145) Potassium Level 4.9 mmol/L (3.5-5.1) Chloride Level 106 mmol/L (98-107) Carbon Dioxide Level 24 mmol/L (20-31) Anion Gap 6 (5-15) Blood Urea Nitrogen 36 mg/dL (9-23) Creatinine 1.93 mg/dL (0.700-1.30) Glomerular Filtration Rate Calc 37 mL/min (>90) BUN/Creatinine Ratio 18.7 (10.0-20.0) Serum Glucose 234 mg/dL (74-106) Calcium Level 9.1 mg/dL (8.7-10.4) Magnesium Level 1.9 mg/dL (1.6-2.6) Total Bilirubin 0.5 mg/dL (0.2-1.0) Aspartate Amino Transferase (AST) 16 U/L (13-40) Alanine Aminotransferase (ALT) 11 U/L (7-40) Alkaline Phosphatase 190 U/L (46-116) Total Protein 6.4 g/dL (5.7-8.2) Albumin 3.4 g/dL (3.2-4.8) Triglycerides Level 102 mg/dL (< 150) Cholesterol Level 119 mg/dL (< 200) LDL Cholesterol 56 mg/dL (< 100) HDL Cholesterol 47 mg/dL (40-59) Hepatitis B Surface Antigen Negative (Negative) Hepatitis C Antibody Reactive (Negative) Troponin I High Sensitivity 11 ng/L (</=54) Test 09/01/24 17:12 09/01/24 07:52 Urine Creatinine 40.80 mg/dL (30.0-125.0) Urine Sodium 104 mmol/L (40-220) Urine Opiates Screen Neg (NEGATIVE) Urine Fentanyl Screen Neg (NEGATIVE) Urine Barbiturates Screen Neg (NEGATIVE) Urine Phencyclidine Screen Neg (NEGATIVE) Urine Amphetamines Screen Pos (NEGATIVE) Urine Benzodiazepines Screen Neg (NEGATIVE) Urine Cocaine Screen Neg (NEGATIVE) Urine Cannabinoids Screen Neg (NEGATIVE) Hemoglobin A1c 9.7 % A1C (<5.7) Plasma/Serum Blood Alcohol < 3.0 mg/dL (<10) Other Laboratory Tests 09/04/24 05:26 Brief Hx & Hospital Course: Final diagnoses: Generalized weakness DM2 CKD HTN Mixed hyperlipidemia Homeless h/o CHF He was admitted for general weakness Workup was negative including CT head and carotid US VS are stable He ambulated well with physical therapy He was seen by social human services assistants for discharge planning and placement assistance He does not qualify for SNF He declines the recommendations for a board and room that he was offered multiple times, he wants to go on his own He is stable for discharge. Condition at Discharge: Stable Final Diagnosis/Problems List Generalized weakness DM2 CKD HTN Mixed hyperlipidemia Homeless h/o CHF Discharge Disposition: Home SNF Discharge Will this Physician continue t: No Discharge Instruct/Medications Diet: Consistent carbohydrate Activity: No Restrictions, As Tolerated Follow Up/Referral: PCP SOLOMON Medications: Same home meds Discharge Statement: "Patient was advised to return to the ER or call 911 if any headaches, dizziness, shortness of breath, chest pain, abdominal pain, bleeding, fevers, or worsening of medical condition. Patient was counseled about treatment plan, medications, possible side effects, patientverbalized understanding. All questions were answered to the best of my ability. This discharge took greater then 30 minutes in planning, reviewing documentation, counseling the patient, and discussing with other team members." ASSESSMENT ASSESSMENT Assessment Generalized weakness DM2 CKD HTN Mixed hyperlipidemia Homeless h/o CHF Date of Service: Sep 08, 2024 Billing Provider: VILLA RAMOS MD Common Visit Codes: NOT BILLABLE VILLA RAMOS MD Sep 08, 2024 11:24
[2024-09-08 13:00] VITALS: BP 158/91; PULSE 73; RESP 19; TEMP 98.6; O2SAT 95
[2024-09-08 13:39] VITALS: BP 132/77; PULSE 71; RESP 19; TEMP 37; O2SAT 96
== END 2024-09-08 15:30 | disposition home or self-care (01) | DRG 640 ==
LOC: ER 07:25 → EDBD 07:25 → TELE 12:54 → TELE-EAST 22:40
PROVIDERS: ADMIT Internal Medicine Geriatric Medicine; ATTEND Internal Medicine Geriatric Medicine
DX: E86.0 Dehydration (principal); N17.0 Acute kidney failure with tubular necrosis; I13.0 Hypertensive heart and chronic kidney disease with heart failure and stage 1 through stage 4 chronic kidney disease, or unspecified chronic kidney disease; Z59.00 Homelessness unspecified; I50.32 Chronic diastolic (congestive) heart failure; R32 Unspecified urinary incontinence; N18.9 Chronic kidney disease, unspecified; E11.22 Type 2 diabetes mellitus with diabetic chronic kidney disease; E78.2 Mixed hyperlipidemia; E11.65 Type 2 diabetes mellitus with hyperglycemia; Z79.4 Long term (current) use of insulin; Z79.899 Other long term (current) drug therapy
CPT/HCPCS: 36415; 70450; 80048; 80053; 80061; 80307; 80320; 82570; 82962; 83036; 83735; 84300; 84484; 85025; 86803; 87340; 93005; 93306; 93886; 96361; 96372; 96374; 97110; 97116; 97163; 97530; 99291; G0378; J1815